=== PATIENT | male | born 1950 | race Caucasian/White ===

== ENCOUNTER 2023-11-01 23:46 | Inpatient (IN) | payer MEDICARE, OTHER, SELFPAY ==
[2023-11-01 21:37] VITALS: BP 106/72
[2023-11-01 21:38] VITALS: BP 106/72; BMI 23.9
--- NOTE | 2023-11-01 21:50 | ED.GENMED ---
History of Present Illness
General
Chief Complaint: Change in Mental Status
Source: usp
Exam Limitations: none
Time Seen by Provider: 11/01/23 21:36
History of Present Illness
History of Present Illness:
This is a 73 year old male that is brought in by ambulance with c/o change in mental status. Patient states that they went him in as they were afraid of him. Spoke with the nurse Yolis and she states that the patient had a change in mental
status. States that he was sitting on the floor and they would not let anyone tough him. States that he would not get up. States that he was recently treated for a UTI. Deneis any fever, chills, chest pain, SOB, abd pain, nausea, vomiting, diarrhea,
headache, dizziness, urinary burning.
Past History
Past History
ED Past Medical History: CHF, NIDDM, Psychiatric (Depression, Anxiety) and Other (UTI, Cellulitis, Frequent falls, HeP C, PVD, Anemia, ischemic cardiomyopathy)
ED Past Surgical History: Cardiac (CABG, ) and Orthopedic (Amputation right toes)
Patient has exhibited threatening behavior?: No
Social History
Tobacco: Non-smoker
Alcohol: None
Living: usp
Review of Systems
Review of Systems
Other source history: usp
All Other Systems: ROS reviewed and negative except as documented in HPI and ROS
Constitutional: Reports no symptoms; Denies fever or chills
EENT: Reports no symptoms
Respiratory: Reports no symptoms; Denies cough or trouble breathing
Cardiac: Reports no symptoms; Denies chest pain
ABD/GI: Reports no symptoms; Denies abdominal pain, nausea, vomiting or diarrhea
: Reports no symptoms; Denies dysuria, frequency or urgency
Musculoskeletal: Reports no symptoms
Skin: Reports no symptoms
Neurological: Reports no symptoms; Denies dizzy or headache
Psychiatric: Reports no symptoms
Phy Exam
General Physical Exam
General Presentation: no apparent distress
General age: appears stated age
General Skin: warm and dry
General Habitus: elderly
General Mental: usual mental status
General Hydration: dry mucous membranes
ENT Exam
ENT Exam: TM's normal, pharynx normal and neck supple
Eye Exam
Eye Exam: EOMI
Cardiovascular Exam
Cardiovascular Exam: regular rate/rhythm, no edema and normal peripheral pulses
Pulmonary Exam
Pulmonary Exam: no respiratory distress, chest non tender, no rhonchi, no wheezing, no cough and other (Fine crackles left base)
Gastrointestinal Exam
Gastrointestinal Exam: normal bowel sounds, non tender, soft, no organomegaly, no pulsatile mass and non distended
Musculoskeletal Exam
Musculoskeletal Exam: full ROM and no edema
Skin Exam
Skin Exam: normal color, warm/dry, no rash, no petechia and other (Abrasion to the right collado)
Psychiatric Exam
Psychiatric Exam: normal mood/affect (Patient is cooperative and following commands)
Course
Orders/Labs/Results
Orders:
Orders
11/01/23 21:48
Urinalysis Reflex To Culture Urgent
Date Specimen was Collected: 11/02/23
Time Specimen was Collected: 00:05
0.9% Sodium Chloride 500 ml [Nss] 500 ml IV BOLUS
11/01/23 21:49
CT Head W/o Iv Contrast Urgent
Comment:
Reason For Exam: Change in mental status
CR Chest - 2 Views Urgent
Comment:
Reason For Exam: Rales left base, Change in mental status
11/01/23 22:37
COVID-19 Antigen Urgent
Source: Nasal Swab
Complete Blood Count/With Diff Urgent
Comprehensive Metabolic Panel Urgent
11/01/23 23:17
Cefepime HCl [Maxipime] 2,000 mg IV NOW STA
11/01/23 23:19
Vancomycin 1 Gram/200 ml [Vancocin] 1 gram in 200 ml IV NOW
11/01/23 23:30
Lactate Level [Lactic Acid] Stat
Influenza A+B Rapid Molecular Stat
EMELYN Source: Nasal Swab
Specimen Description:
0.9% Sodium Chloride 500 ml [Nss] 500 ml IV BOLUS
11/01/23 23:35
Admit/Transfer Patient As Directed
Co-Sign Provider:
Level of Care: Inpatient admission
Assign to:: Medical/Surgical
Physician / Group: Hospitalist
Diagnosis: AMS
Reason for Hospitalization: AMS
Expected length of stay greater than two midnights?: Yes
ELOS- Estimated Length of Stay in days: 4
I certify the patient meets the requirements for IP care: Yes
11/01/23 23:37
Code Status As Directed
Resuscitation Status: Do not resuscitate
Based on pt advanced directive or healthcare POA form: Yes
DNR Bracelet Application ONCE
11/01/23 23:45
Blood Culture Q30M
EMELYN Source: Blood/Venous
Specimen Description:
Legionella Urinary Antigen Routine
EMELYN Source: Urine
Specimen Description:
Strep pneumoniae Antigen Routine
EMELYN Source: Urine
Specimen Description:
11/02/23 00:15
Blood Culture Q30M
EMELYN Source: Blood/Venous
Specimen Description:
Abnormal Lab Results
11/01/23 11/01/23
22:37 22:42
RBC 4.03 L 10^6/uL
(4.70-6.10)
Hgb 11.7 L g/dL
(13.0-18.0)
Hct 34.7 L %
(39.0-52.0)
RDW 14.9 H %
(11.5-14.5)
Absolute Lymphs (auto) 1.1 L 10^3/uL
(1.2-3.4)
Absolute Monos (auto) 1.0 H 10^3/uL
(0.1-0.6)
Immature Gran % 0.6 H %
(0-0.5)
Lymphocytes % 16.0 L %
(20.5-51.1)
Monocytes % 13.6 H %
(1.7-9.3)
BUN 43 H mg/dl
(9-20)
Creatinine 2.8 H mg/dL
(0.7-1.3)
Glucose 168 H mg/dl
(70-99)
Alkaline Phosphatase 166 H U/L
(38-126)
POC Glucose 151 H mg/dl
(70-99)
11/01/23 22:37
11/01/23 22:37
H/H low. Dehydration. Acute renal failure, Glucose nonfasting. ALk phos elevation. COVID negative.
Urine positive for infection.
Vital Signs
Initial and Last Documented VS:
Initial Vital Signs
BP
106/72
11/01/23 21:37
Last Documented Vital Signs
Temp Pulse Resp BP Pulse Ox
97.4 F 93 24 121/55 94
11/01/23 21:38 11/01/23 23:30 11/01/23 23:30 11/01/23 23:01 11/01/23 23:30
MDM/Problems Addressed
Differential Diagnosis Includes:
UTI, Dehydration.
MDM/Problems Addressed:
This is a 73 year old male that comes in by ambulance with c/o change in mental status. Called and spoke with the [facility] and they stated that the patient would not get up off the floor and would not let them tough him. States that his daughter and
the doctor wanted patient sent to the ER.
Will check labs, Urine and given IV fluids.
Chronic conditions affecting care: Psychiatric illness
Acute Exacerbation and/or Progression of Chronic Illness:
NA
*Radiology
Radiology exam reviewed: preliminary read by ED provider (Chest- Pleural effusion VS Pneumonia Left lower lobe) and radiology read reviewed (CT head-No acute intracranial abnormalities. Small old infarct again seen in the high left centrum
semiovale. Findings again seen Compatible with diffuse cortical atrophy with nonspecific white mattr changes as described above. )
*EKG
Interpreted by ED Provider?: NA
Rate: EKG- N/A
*Critical Care Note
Total Time (30-74mins, 75-104mins- exclusive of procedures): Not Applicable
ED Attending Note
-
Portions of this chart may have been created with voice recognition software.� Occasional wrong word or��sound alike� substitutions may have occurred due to the inherent limitations of voice recognition software.
Discharge Plan
Departure
Patient Disposition: Admit
Date of Disposition: 11/01/23
Time of Disposition: 23:17
Admit to: Med/Surg
Presentation/result/management discussed w/ accepting MD/DO: Hospitalist
Patient with high blood pressure during this ER visit?: No
Condition: Good
Covid-19: Negative COVID-19
Discharge Problem:
Change in mental status, Left lower Pneumonia with pleural effusi
Interventions
Interventions:
*Risk Screen - Suicide Last Done: 11/01/23 21:38
*General Assessment Last Done: 11/01/23 21:38
*Neglect/Abuse Screening Last Done: 11/01/23 21:38
[2023-11-01 22:20] VITALS: BP 137/59
[2023-11-01 22:43] LABS: Glucose - Point of Care 151 mg/dl (70-99)
[2023-11-01 22:45] LABS: % Basophils 1.4 % (0-2); % Eosinophils 3.8 % (0-6); % Immature Granulocytes 0.6 % (0-0.5); % Monocytes 13.6 % (1.7-9.3); % Neutrophils 64.6 % (42.2-75.2); Absolute Basophils 0.1 10^3/uL (0-0.2); Absolute Eosinophils 0.3 10^3/uL (0-0.7); Absolute Lymphocytes 1.1 10^3/uL (1.2-3.4); Absolute Neutrophils 4.6 10^3/uL (1.4-6.5); Hematocrit 34.7 % (39.0-52.0); Hemoglobin 11.7 g/dL (13.0-18.0); Mean Corp Hgb Conc. 33.7 g/dL (33.0-37.0); Mean Corpuscular Volume 86.1 fL (80.0-94.0); Nucleated Red Blood Cells % 0 % (-); Platelet Count 281 10^3/uL (130-400); Red Blood Cell Count 4.03 10^6/uL (4.70-6.10); Red Cell Dist. Width 14.9 % (11.5-14.5); White Blood Cell Count 7.1 10^3/uL (4.8-10.8)
[2023-11-01] MEDS: NSS 500 IV (22:47)
[2023-11-01 22:58] LABS: ALT (SGPT) 28 U/L (0-50); AST (SGOT) 35 U/L (17-59); Albumin 4.3 g/dl (3.5-5.0); Alkaline Phosphatase 166 U/L (38-126); Blood Urea Nitrogen 43 mg/dl (9-20); Carbon Dioxide 23 mmol/L (22-30); Chloride 102 mmol/L (98-107); Estimated Creatinine Clearance 27 ml/min; Glucose 168 mg/dl (70-99); Potassium 4.3 mmol/L (3.5-5.1); Sodium 136 mmol/L (135-145); Total Bilirubin 0.7 mg/dl (0.2-1.3); Total Protein 7.9 g/dl (6.3-8.2)
[2023-11-01 23:00] LABS: COVID-19 Antigen Negative (Negative)
[2023-11-01 23:01] VITALS: BP 121/55
--- NOTE | 2023-11-01 23:54 | HPS.HSE ---
Family Physician
-
Family Physician: Eligio Glass MD
Chief Complaint
-
AMS
History of Present Illness
73 yo M with PMHx of DM, HFrEF, PAD, ischemic CM, chronic hepC, depression, chronic ambulatory deficiency, anxiety bought from [facility] after few days of worsening mental status and poor oral intake. He was also treated there for UTI. In ED
admisssion was advised 2/2 concern for pneumonia, however no viral PCR or UA available at the time of admission. Patient is without leukocytosis. Unclear sourse of infection at this time.
Medical History
Past Medical History
Past Medical History: Reports Other
Additional Past Medical History:
see HPI
Past Surgical History: Reports None
Social History
Unable to obtain full social history at this time due to: Dementia
Family History
Family History: Not pertinent
Allergies / Home Medications
Allergies reflects when Allergies were last updated in [employer]
Home Medications with original date entered in [employer]
Allergy/Medication List:
Allergies
Allergy/AdvReac Type Severity Reaction Status Date / Time
clopidogrel Allergy Unknown Verified 11/01/23 21:55
lisinopril Allergy Unknown Verified 11/01/23 21:55
spironolactone Allergy Unknown Verified 11/01/23 21:55
Home Medications
aspirin 81 mg chewable tablet 81 mg PO DAILY 11/01/23
atorvastatin 80 mg tablet 80 mg PO HS 11/01/23
bisacodyl 10 mg rectal suppository (Dulcolax (bisacodyl)) 10 mg GA DAILY PRN if no bm in 24 hrs after MOM 11/01/23
bupropion HCl 150 mg 24 hr tablet, extended release 450 mg PO DAILY 11/01/23
collagenase clostridium histo. 250 unit/gram topical ointment (Santyl) 1 applic topical DAILY 11/01/23
collagenase clostridium histo. 250 unit/gram topical ointment (Santyl) 1 applic topical DAILY PRN soilage 11/01/23
enoxaparin 40 mg/0.4 mL subcutaneous syringe 40 mg SC DAILY 11/01/23
insulin aspart U-100 100 unit/mL (3 mL) subcutaneous pen 2 - 10 sliding scale dose SC ACHS 11/01/23
insulin glargine-yfgn 100 unit/mL (3 mL) subcutaneous pen 7 unit SC HS 11/01/23
magnesium hydroxide 400 mg/5 mL oral suspension (Milk of Magnesia) 30 ml PO DAILY PRN if no bm x 3 days 11/01/23
magnesium oxide 800 mg PO DAILY 11/01/23
melatonin 3 mg tablet 6 mg PO HS 11/01/23
menthol 0.44 %-zinc oxide 20.6 % topical ointment (Moisture Barrier Ointment) 1 applic topical BID 11/01/23
metoprolol tartrate 25 mg tablet 25 mg PO Q6H 11/01/23
olanzapine 5 mg tablet (Zyprexa) 5 mg PO HS 11/01/23
paroxetine HCl 30 mg tablet 60 mg PO DAILY 11/01/23
povidone-iodine 10 % topical solution (Betadine) 1 applic topical DAILY 11/01/23
povidone-iodine 10 % topical solution (Betadine) 1 applic topical DAILY PRN soilage 11/01/23
sacubitril 24 mg-valsartan 26 mg tablet (Entresto) 1 tab PO BID 11/01/23
sodium phosphates 19 gram-7 gram/118 mL enema (Fleet Enema) 118 ml GA DAILY PRN if no bm in 24hrs after bisacodyl 11/01/23
tamsulosin 0.4 mg capsule 0.4 mg PO QPM 11/01/23
Review of Systems
-
Unable to obtain full review of systems at this time due to: Dementia
Physical Exam
Vital Signs
Vital Signs
Temp Pulse Resp BP Pulse Ox
97.4 F 93 24 121/55 94
11/01/23 21:38 11/01/23 23:30 11/01/23 23:30 11/01/23 23:01 11/01/23 23:30
Physical Exam
General: No Apparent Distress
HEENT: Anicteric
Respiratory: Clear; No Wheezes, Rales or Rhonchi
Cardiac: S1/S2 and Regular Rhythm
GI: Soft, Non Tender and Non Distended
Musculoskeletal: No Clubbing, No Cyanosis and No Edema
Skin: Warm and Dry
Neuro: Awake and Alert
Hematologic/Lymphatic: No Lymphadenopathy
Psych: Apparent Dementia
Laboratory Results
-
11/01/23 22:37
11/01/23 22:37
Laboratory Results
Total Bilirubin 0.7 mg/dl (0.2-1.3) 11/01/23 22:37
AST 35 U/L (17-59) 11/01/23 22:37
ALT 28 U/L (0-50) 11/01/23 22:37
Alkaline Phosphatase 166 U/L (38-126) H 11/01/23 22:37
Impression/Plan
-
A/P:
#Sepsis with unclear sourse, possible HCAP with unknown organism
Cefepime\\Vanoc
Bcx
S/pneumonia and legionella urine Ag
Checjk COVID-19 and influenza
follow AM Procalcitonin
UA ordered - follow
check lactic acid
#Acute metabolic encephalopathy
most likely septic r/o other etiologies
CT head with old stroke
check TSH and Ammonia level
#Alk.phos elevation
abd non-tender
US RUQ
#Chronic hepC
#x of CVA
#chronic ambulatory dysfunction
#Anxiety/depression syndrome
#chronic HFrEF
#Ischemic CM
cont home meds
avoid oversedation, holding Zyprexa
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
#DM type 2
insulin low dose
DNR/DNI as per SNF paperwork
DVT ppx hep
I have spent at least 78min preparing admission, reviewing chart, test results, providing direct patient care
[2023-11-02] VITALS (8 sets, daily range): BP systolic 110–171; BP diastolic 60–99; BMI 24.4
[2023-11-02] MEDS: MAXIPIME 2000 MG IV (00:10)
[2023-11-02] MEDS: ATIVAN 1 MG IV ×3 (00:13→19:20)
[2023-11-02 00:17] LABS: Urine Albumin 1+ (Neg - Trace); Urine Bilirubin Negative (Negative); Urine Character Very Cloudy (Clear); Urine Color Yellow; Urine Glucose Negative (Negative); Urine Ketone Negative (Negative); Urine Leukocyte 2+ (Negative); Urine Nitrite Negative (Negative); Urine Occult Blood 3+ (Negative); Urine Urobilinogen Negative (Neg - 1+)
[2023-11-02 00:24] LABS: Urine Red Blood Cell 0-2 /HPF (0-2); Urine White Cell 21-25 /HPF (0-5)
[2023-11-02 00:25] LABS: Urine Bacteria Moderate (Negative)
[2023-11-02] MEDS: VANCOCIN 200 IV (00:26)
[2023-11-02 01:12] LABS: Ammonia < 9 umol/L (9-30)
[2023-11-02 01:13] LABS: Lactic Acid 1.8 mmol/L (0.7-2.0)
[2023-11-02 01:50] LABS: TSH 0.55 uIU/ml (0.47-4.68)
[2023-11-02] MEDS: NSS 1000 IV ×2 (02:10→12:27)
[2023-11-02] MEDS: VANCOCIN HCL 500 MG 100 IV ×2 (02:11→15:39)
[2023-11-02] MEDS: HEPARIN 5000 UNITS SC ×2 (02:25→11:33)
[2023-11-02] MEDS: ZYPREXA 5 MG IM ×2 (03:32→08:23)
--- NOTE | 2023-11-02 07:00 | PTCARENOTE ---
@0245; Received pt from ED ,via stretcher,IV fluid infusing,and accompanied by ED RN and ED PCT.Pt on nursing 1:1 for pt safety.Pt is restless while lying on the stretcher . Pt lifted into the bed x4 assist.Pt became angry,agitated,combative towards
staff (swinging arms/fists and kicking legs), forgetful and unable to follow verbal redirection. JIMMIE Caballero notified ,via TT and new restraints orders written.Pt aggressively kicking with legs and swinging hands at staff while attempting to
apply restraints. Attempted to change patient,when pt starting to lift buttock off the bed and hitting staff with mitts.JIMMIE notified via TT .Zyprexia 5mg IM ordered and administered.Pt appears to take 3-4 minute cat naps and wake back up with same
behavior.@0400;Pt is slightly calmer while resting in bed awake.Pt has a foam dressing on left inner thigh but pt was too agitated to assess wound care at the present.@0640;Pt became agitated again,lifting buttock off the mattress,shaking the bed
and pulling on restraints.JN=053/71, HR 106 and POX room air=94%. @0649;Instructed JIMMIE Caballero on above note ,via TT.
[2023-11-02 08:28] LABS: Glucose - Point of Care 111 mg/dl (70-99)
--- NOTE | 2023-11-02 08:46 | PHA.VAN.IN ---
Assessment
- Assessment
Renal Function: Unknown baseline (SCR decreased from admission 2.8 --> 2.2)
Concomitant Antimicrobials: cefepime
Plan
- Plan
Initial / Loading Dose: 1500mg - 11/02 (1g at 00:26 PLUS 500mg at 02:11)
Maintenance Regimen: dosing by level - will give additional 500mg x1 today for total 2g
Monitoring: random 11/03 06
Pharmacokinetics Vancomycin I
- -
Patient Age: 73
Patient Sex: Male
Vancomycin Day #: 1
Indication: Pulmonary/Respiratory
Requesting Provider: Dr. Yu
Pertinent Antimicrobial Allergies:
no pertinent antibiotic allergies
Height / Weight:
Height 6 ft 2 in
Actual Weight 86.137 kg
Pertinent Past Medical History: DM 2
- Vital Signs / Lab Results
Temp Pulse Resp BP Pulse Ox
97.6 F 106 24 123/71 94
11/02/23 06:55 11/02/23 06:55 11/02/23 06:55 11/02/23 06:55 11/02/23 06:55
Lab Results - Hematology
11/01/23
22:37
WBC 7.1
Lab Results - Chemistry
11/01/23
22:37
BUN 43 H
Creatinine 2.8 H
Estimated Creat Clear 27
Albumin 4.3
11/02/23
00:32
Lactic Acid 1.8
Lab Results - Urine
11/01/23 11/02/23
23:30 00:06
Urine Nitrite (Reflex) Cancelled Negative
Leukocyte Esterase Rfl Cancelled 2+ A
Urine WBC (Reflex) 21-25 A
Urine Bacteria (Reflex) Moderate A
Microbiology Results
11/02/23 00:06 Legionella Urinary Antigen - Final
Urine Negative for Legionella pneumophila Serogroup 1 antigen.
A negative result does not rule out the possiblity of
Legionella infection due to other serogroups or species of
Legionella. Clinical correlation is recommended.
Streptococcus pneumoniae Antigen (M - Final
Negative for Streptococcus pneumoniae antigen.
A negative result does not exclude infection with
Streptococcus pneumoniae. Clinical correlation is
recommended.
11/02/23 00:09 Influenza Types A & B (ESPERANZA) - Final
Nasal Swab Negative for Influenza A & B, NAAT
Negative results must be combined with clinical observations
and patient history.
Nucleic Acid Amplification test (NAAT)performed on the
[employer] platform.
[2023-11-02 09:47] LABS: % Basophils 1.3 % (0-2); % Eosinophils 5.1 % (0-6); % Immature Granulocytes 0.3 % (0-0.5); % Lymphocytes 12.5 % (20.5-51.1); % Monocytes 10.7 % (1.7-9.3); % Neutrophils 70.1 % (42.2-75.2); Absolute Basophils 0.1 10^3/uL (0-0.2); Absolute Eosinophils 0.3 10^3/uL (0-0.7); Absolute Lymphocytes 0.8 10^3/uL (1.2-3.4); Absolute Monocytes 0.7 10^3/uL (0.1-0.6); Absolute Neutrophils 4.4 10^3/uL (1.4-6.5); Hematocrit 29.5 % (39.0-52.0); Hemoglobin 9.9 g/dL (13.0-18.0); Mean Corp Hgb Conc. 33.6 g/dL (33.0-37.0); Mean Corpuscular Hgb 28.7 pg (27.0-31.0); Mean Corpuscular Volume 85.5 fL (80.0-94.0); Mean Platelet Volume 10.4 fL (7.4-10.4); Nucleated Red Blood Cells % 0 % (-); Platelet Count 234 10^3/uL (130-400); Red Blood Cell Count 3.45 10^6/uL (4.70-6.10); Red Cell Dist. Width 15.1 % (11.5-14.5); White Blood Cell Count 6.2 10^3/uL (4.8-10.8)
--- NOTE | 2023-11-02 09:55 | PTOTSP ---
Speech Language Pathology
Pt seen for clinical bedside swallow evaluation. Attempted ice to lips with immediate agitation noted. Trialed drop of water via pipetted straw into oral cavity. Initially no response with bolus manipulation and swallow following 10 second delay.
Further P.O. trials deferred.
Recommend:
(1) NPO
(2) Oral care 4x/day with suctioning as needed
(3) Not appropriate for Aspiration Risk Hydration Protocol (ARHP) given agitation and oral defensiveness
(4) SHEET TAKER to continue to follow
[2023-11-02 10:17] LABS: ALT (SGPT) 22 U/L (0-50); AST (SGOT) 30 U/L (17-59); Alkaline Phosphatase 127 U/L (38-126); Blood Urea Nitrogen 38 mg/dl (9-20); Calcium 9.3 mg/dl (8.4-10.2); Carbon Dioxide 22 mmol/L (22-30); Chloride 106 mmol/L (98-107); Estimated Creatinine Clearance 35 ml/min; Glucose 110 mg/dl (70-99); Magnesium 2.1 mg/dl (1.6-2.3); Potassium 3.5 mmol/L (3.5-5.1); Procalcitonin < 0.05 ng/ml (0.0-0.25); Sodium 138 mmol/L (135-145); Total Bilirubin 0.6 mg/dl (0.2-1.3); Total Protein 6.1 g/dl (6.3-8.2); eGFR 30.85
--- NOTE | 2023-11-02 11:28 | CM ---
[facility] was ambulatory with walker prior to this admission to hospital. Patient was at the facility as a Short term rehabilitation patient but per admissions final decision has not been made at this
time regarding LTC status. Patient is not on a bed hold but per Admissions they will hold his bed and will work on the authorization when patient is ready to return. Patient daughter is very involved and supportive. Patient currently on 4 point
restraints. [facility] CM will reach out to patient sister to confirm plan for discharge. CM will continue to follow for discharge planning needs.
Plan; return to SNF: will need auth but facility admissions will work to complete
[2023-11-02] MEDS: ENTRESTO 24 MG/26 MG PO (11:36)
[2023-11-02 12:18] LABS: Glucose - Point of Care 100 mg/dl (70-99)
[2023-11-02] MEDS: STERILE WATER FOR INJECTION 10 ML IV (12:31)
[2023-11-02] MEDS: MAXIPIME 1000 MG IV (12:31)
[2023-11-02 13:24] LABS: Glycohemoglobin (HgbA1c) 7.7 % (4.0-5.6)
--- NOTE | 2023-11-02 13:50 | W.PN.HOSP.TC ---
Today's Communication/Plan
-
change cefepime to zosyn
consult psych/neuro
follow cultures
restraints for safety
Assessment / Plan
Assessment / Plan
pt is a 73 year old male
Acute metabolic encephalopathy vs delirium (more likely) possibly from UTI or pna (not hypoxic), WBC WNL--CT head with old stroke--ammonia < 9, TSH WNL
Sepsis with unclear source, possible HCAP with unknown organism vs UTI--cefepime can cause MS changes--stop and change to zosyn (renal dose)--cont vanco--follow cultures--Covid/flu/legionella/Strep pneumonia all negative--lactic acid WNL
Alk.phos elevation--not clinically significant
Chronic hep C
Hx of CVA
chronic ambulatory dysfunction
Anxiety/depression
chronic HFrEF/Ischemic CMP--cannot tolerate oral meds at this time--IV as able--NPO
DM type 2--insulin low dose
DNR/DNI as per SNF paperwork
DVT ppx hep
Anticipated Discharge: > 48 hours
Subjective/Interval History
-
Date of Service: November 02, 2023
pt nonverbal, not following commands
Objective Data
-
Labs:
Laboratory Results
11/02/23
09:37
WBC 6.2
Hgb 9.9 L
Hct 29.5 L
Plt Count 234
Sodium 138
Potassium 3.5
Chloride 106
Carbon Dioxide 22
BUN 38 H
Creatinine 2.2 H
Glucose 110 H
Calcium 9.3
Total Bilirubin 0.6
AST 30
ALT 22
Alkaline Phosphatase 127 H
Vital Signs:
max temp for 24 hours
11/02/23
06:55
Temp 97.6 F
Vital Signs
Temp Pulse Resp BP Pulse Ox
97.6 F 106 24 123/71 94
11/02/23 06:55 11/02/23 06:55 11/02/23 06:55 11/02/23 06:55 11/02/23 06:55
I&O
11/01/23 11/02/23 11/03/23
06:59 06:59 06:59
Intake Total 375 / 375
Balance 375 / 375
Review of Systems
-
Unable to obtain full review of systems at this time due to: Acuity
Physical Exam
-
General: Appears Chronically Ill and Other (in 4 point restraints)
HEENT: Normocephalic and Atraumatic; Negative Oxygen
Respiratory: Clear to Auscultation; Negative Wheezes or Rhonchi
Cardiac: Regular Rhythm, S1/S2 and Tachycardic
GI: Soft, Nontender, Nondistended and Normal Bowel Sounds
Genito-urinary: Other (condom cath on)
Musculoskeletal: No Clubbing, No Cyanosis and No Edema
Neuro: Awake and Other (not following commands, not verbal); Negative Alert or AO x 3
Psych: Agitated
--- NOTE | 2023-11-02 14:50 | CON.MD ---
Consultation - Medical
-
patient seen chart reviewed. i could obtain no information from patient who had been given im zyprexa and was not responsive. the patient is admitted for change in mental status. [facility] and was sitting on the floor in his room
[facility]. recently rx for uti w cefipine now changes to zosin bc ? as to whether it was causing the ms changes. the patient noted to have poor appetite in recent days as well. he has hx of depression and was on the top dose of wellbutrin 450 mg
daily and paxil 60 mg. he was also at some point taking zyprexa 5 mg. spoke to patient's d. before colman he was mobile. did not walk well but could ambulate. before as had gi and respiratory sx. he was living at his home in [facility]. he was
seen in hospital and rx for cellulitis/uti/diarrhea /coughing. he was dc to [facility] and continued on iv antibiotics (i asked d what antibiotics he was taking for weeks but she was not sure what or why). while at [facility] 'his mind
started getting affected...he was getting confused ...and there were problems w the nurses'. he came to for one day and was released and he was sent back to [facility]. he continued w behavioral disturbance 'he was almost like having sz...'
(reminded d he takes wellbutrin which he has taken for 'at least a decade') d says she wanted him to go to [facility] as they are famililar with his hx. while he was at [facility] he required one to one rx as he was hallucinating / confused kept
trying to get o/o bed but he cannot walk. she said [facility] docs did 'all kinds of tests and cultures' but in the end could not figure out what was going on. d said she was told he was sundowning. he was at the [facility] for about a week and a half and was
returned to [facility] about a week ago and now the saga is repeating itself. he has received im zyperxa here for agitaton
past med hx niddm chf uti cellulitis hep c in the past pud anemia cad ambulatory dysfunction s/p cabg and amputation of toes cat brain shows old infarct tsh normal. ua c/w infections cultures pending
psych hx patient was in psych hospitals in the past. 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
psych facility. he has been seen at [facility] d reports he needed haldol for agitation while there
substance abuse alcohol and cocaine thirty years ago
family hx d does not know
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 he is
mse unable to elicit information from patient
dx delirium superimposed on medical illness
plan for now would cut back wellbutrin to 300 and paxil to 40 mg although po meds are on hold for now. .unclear what is causing deteriorating mental status as d insists patient was normal mental status as late as xmas. would use ativan iv for
agitation for now. consider iv depakote for agitation if he becomes aggressive again. will follow
[2023-11-02] MEDS: ZOSYN 50 IV ×2 (15:09→22:12)
[2023-11-02] MEDS: HEPARIN SC ×2 (15:13→15:16)
--- NOTE | 2023-11-02 15:56 | CON.NEURO ---
Consultation
Order
CC: none
HPI: This is a 73-year-old man who presented to [facility] on 11/01/2023 with poor oral intake and worsening of encephalopathy. According to EMR patient was treated for UTI and 'he was almost like having a seizure '.
ER VS: 106/72, 91, afebrile
Labs: Glucose�168 normal WBCs, platelets, urinalysis�positive for blood, bacteria, leukocyte esterase, WBCs
CT head-atrophy, chronic L MCA territory subcortical infarct.
PDMP: No Rx medications
PMH: HTN, DLP, DM, HFrEF, PAD, CM, chronic hepC, MDD, KAJAL, PTSD, BPH, ambulatory dysfunction, history of polysubstance addiction in remission
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
FH: Unknown
All: Lisinopril, spironolactone, Plavix
ROS: Unable due to encephalopathy
General: Restrained, in no acute distress
Cardio: Regular rate and rhythm. Extremities are without cyanosis or edema.
Neuro:
Mental Status: Alert, attends to examiner, follows simple requests intermittently (closes eyes, sticks tongue out). Nonsensical speech. No hemineglect
Cranial Nerves: Pupils are equally round and reactive to light. Horizontal EOMs full. BTT BL No ptosis. No nystagmus. Face symmetric. Normal hearing AU. Tongue midline. Severe dysarthria including edentulous
Motor: Moves all limbs within bed plane symmetrically
Reflexes: Limited exam due to restraint
Sensory: Unable to assess due to encephalopathy
Coordination: No tremors or myoclonic movements
Gait: deferred
Assessment and Plan:
I. Multifactorial encephalopathy (toxic, infectious)
II. Chronic L MCA territory infarct
III.UTI
-Aspiration and seizure precautions.
-EKG
-Avoid medications known to lower seizure threshold (cefepime, bupropion)
-Avoid cerebral hypoperfusion, WIRELESS SALES MANAGER suppressants and anticholinergic medications.
-please check TSH, free T4, vit B12, CK
-Thiamine 100 mg QD IV
-Routine EEG
-Brain MRI wo kajal if no clinical improvement
-Will obtain collateral history from patient's family regarding cognitive baseline.
-DVT prophylaxis.
I reviewed all radiology and labs along with past medical records pertinent to current medical problems.
Thank you for allowing us to participate in the care of this patient. We will continue to follow. Please do not hesitate to contact us with any questions or concerns.
Subjective/Objective
Subjective Data
Date of Service: November 02, 2023
Objective Data
Vital Signs
Temp Pulse Resp BP Pulse Ox
37.0 C 109 24 149/82 94
11/02/23 15:10 11/02/23 15:10 11/02/23 15:10 11/02/23 15:10 11/02/23 15:10
Lab Results
11/02/23 09:37
11/02/23 09:37
Sodium 138 mmol/L (135-145) 11/02/23 09:37
Potassium 3.5 mmol/L (3.5-5.1) 11/02/23 09:37
BUN 38 mg/dl (9-20) H 11/02/23 09:37
Glucose 110 mg/dl (70-99) H 11/02/23 09:37
Calcium 9.3 mg/dl (8.4-10.2) 11/02/23 09:37
Patient Allergies
clopidogrel Allergy (Verified 11/01/23 21:55)
Unknown
lisinopril Allergy (Verified 11/01/23 21:55)
Unknown
spironolactone Allergy (Verified 11/01/23 21:55)
Unknown
Medications
-
Active Medications
Generic Name Dose Route Start Last Admin
Trade Name Becca PRN Reason Stop Dose Admin
Acetaminophen 650 mg 11/02/23 00:38
Acetaminophen 325 Mg Tablet PO 11/30/23 00:37
Q4HPRN PRN
mild pain/LARA/temp> 100.4F
Acetaminophen 650 mg 11/02/23 14:16
Acetaminophen 650 Mg Rectal Suppository RECTAL 11/30/23 14:15
Q6HPRN PRN
pain/fever
Aspirin 81 mg 11/02/23 08:00 11/02/23 11:36
Aspirin 81 Mg Chewable Tablet PO 11/30/23 07:59 Not Given
DAILY ILDEFONSO
Atorvastatin Calcium 80 mg 11/02/23 22:00
Atorvastatin (Lipitor) 80 Mg Tablet PO 11/30/23 21:59
HS ILDEFONSO
Bupropion HCl 300 mg 11/03/23 08:00
Bupropion (24hr) Extended Release 300 Mg Tablet PO 12/01/23 07:59
DAILY ILDEFONSO
Collagenase 1 applic 11/02/23 00:38
Collagenase Ointment 2.5 Gram Jar TOPICAL 11/30/23 00:37
DAILY PRN
soilage
Dextrose 12.5 grams 11/02/23 00:38
Dextrose 50% (0.5 Grams/Ml) 50 Ml Syringe IV 11/30/23 00:37
[id number] PRN
hypoglycemia
Protocol
Glucagon 1 mg 11/02/23 00:38
Glucagon 1 Mg Vial IM 11/30/23 00:37
PRN PRN
hypoglycemia
Protocol
Heparin Sodium 5,000 units 11/02/23 00:38 11/02/23 15:16
Heparin 5,000 Units/Ml 1 Ml Vial SC 11/30/23 00:37 Not Given
Q8 ILDEFONSO
Vancomycin HCl 1 each/ Device 0 mls @ 0 mls/hr 11/02/23 00:38
IV
PER PROTOCOL ILDEFONSO
Protocol
As Directed
Sodium Chloride 1,000 mls @ 75 mls/hr 11/02/23 00:38 11/02/23 12:27
Nss IV 1,000 mls
.[id number] ILDEFONSO Administration
Piperacillin Sod/Tazobactam Sod 2.25 grams in 50 mls @ 100 mls/hr 11/02/23 14:00 11/02/23 15:09
Zosyn IV 50 mls
Q6H ILDEFONSO Administration
Insulin Aspart 0 units 11/02/23 07:30 11/02/23 12:24
Insulin Aspart Low Resistance 300 Units/3 Ml Pen.Injctr SC 11/30/23 07:29 Not Given
AC ILDEFONSO
Protocol
Lorazepam 1 mg 11/02/23 15:22
Lorazepam 2 Mg/Ml Vial IV 11/30/23 15:21
Q6HPRN PRN
agitation
Magnesium Hydroxide 15 ml 11/02/23 00:38
Milk Of Magnesia 30 Ml Cup PO 11/30/23 00:37
HSPRN PRN
constipation
Metoprolol Tartrate 25 mg 11/02/23 00:38 11/02/23 12:29
Metoprolol 25 Mg Regular Release Tablet PO 11/30/23 00:37 Not Given
Q6H ILDEFONSO
Metoprolol Tartrate 5 mg 11/02/23 18:00
Metoprolol 5 Mg/5 Ml Vial IV 11/30/23 17:59
Q6 ILDEFONSO
Olanzapine 5 mg 11/02/23 22:00
Olanzapine 5 Mg Tablet PO 11/30/23 21:59
HS ILDEFONSO
Paroxetine HCl 40 mg 11/03/23 08:00
Paroxetine 20 Mg Tablet PO 12/01/23 07:59
DAILY ILDEFONSO
Sacubitril/Valsartan 1 tab 11/02/23 08:00 11/02/23 11:36
Sacubitril 24 Mg/Valsartan 26 Mg (Entresto) Tab PO 11/30/23 07:59 Not Given
BID ILDEFONSO
Sodium Chloride 0 flush 11/02/23 02:00
Sodium Chloride 0.9% (Flush) Syringe IV 11/30/23 01:59
PER PROTOCOL ILDEFONSO
Sodium Chloride 0.5 ml 11/02/23 15:23
Nss (Pf) 10 Ml Vial For Ativan 1 Mg Dose IV 11/30/23 15:22
Q6HPRN PRN
IV LORAZEPAM DILUTION
Tamsulosin HCl 0.4 mg 11/02/23 18:00
Tamsulosin 0.4 Mg Capsule PO 11/30/23 17:59
QPM ILDEFONSO
Home Medications
Medication Instructions Recorded
aspirin 81 mg chewable tablet 81 mg PO DAILY Blood Clot 11/01/23
Prevention/Tx
atorvastatin 80 mg tablet 80 mg PO HS High Cholesterol 11/01/23
bisacodyl 10 mg rectal suppository 10 mg [place] DAILY PRN if no bm in 24 11/01/23
(Dulcolax (bisacodyl)) hrs after MOM
bupropion HCl 150 mg 24 hr tablet, 450 mg PO DAILY Depression 11/01/23
extended release
collagenase clostridium histo. 250 1 applic topical DAILY PRN soilage 11/01/23
unit/gram topical ointment (Santyl)
collagenase clostridium histo. 250 1 applic topical DAILY Skin Issues 11/01/23
unit/gram topical ointment (Santyl)
enoxaparin 40 mg/0.4 mL 40 mg SC DAILY Blood Clot 11/01/23
subcutaneous syringe Prevention
insulin aspart U-100 100 unit/mL 2 - 10 sliding scale dose SC ACHS 11/01/23
(3 mL) subcutaneous pen Diabetes
insulin glargine-yfgn 100 unit/mL 7 unit SC HS Diabetes 11/01/23
(3 mL) subcutaneous pen
magnesium hydroxide 400 mg/5 mL 30 ml PO DAILY PRN if no bm x 3 11/01/23
oral suspension (Milk of Magnesia) days
magnesium oxide 800 mg PO DAILY Electrolyte 11/01/23
Repletion
melatonin 3 mg tablet 6 mg PO HS Sleep 11/01/23
menthol 0.44 %-zinc oxide 20.6 % 1 applic topical BID Skin Issues 11/01/23
topical ointment (Moisture Barrier
Ointment)
metoprolol tartrate 25 mg tablet 25 mg PO Q6H Blood Pressure 11/01/23
olanzapine 5 mg tablet (Zyprexa) 5 mg PO HS mental health 11/01/23
paroxetine HCl 30 mg tablet 60 mg PO DAILY Depression 11/01/23
povidone-iodine 10 % topical 1 applic topical DAILY PRN soilage 11/01/23
solution (Betadine)
povidone-iodine 10 % topical 1 applic topical DAILY Skin Issues 11/01/23
solution (Betadine)
sacubitril 24 mg-valsartan 26 mg 1 tab PO BID Heart Failure 11/01/23
tablet (Entresto)
sodium phosphates 19 gram-7 118 ml [place] DAILY PRN if no bm in 11/01/23
gram/118 mL enema (Fleet Enema) 24hrs after bisacodyl
tamsulosin 0.4 mg capsule 0.4 mg PO QPM Urinary Issue 11/01/23
Vital Signs and Labs
-
Vital Signs and Labs:
Vital Signs
Temp Pulse Resp BP Pulse Ox
37.0 C 109 24 149/82 94
11/02/23 15:10 11/02/23 15:10 11/02/23 15:10 11/02/23 15:10 11/02/23 15:10
Lab Results
11/02/23 09:37
11/02/23 09:37
Sodium 138 mmol/L (135-145) 11/02/23 09:37
Potassium 3.5 mmol/L (3.5-5.1) 11/02/23 09:37
BUN 38 mg/dl (9-20) H 11/02/23 09:37
Glucose 110 mg/dl (70-99) H 11/02/23 09:37
Calcium 9.3 mg/dl (8.4-10.2) 11/02/23 09:37
Home Medications
-
Home Medications
aspirin 81 mg chewable tablet 81 mg PO DAILY Blood Clot Prevention/Tx 11/01/23
atorvastatin 80 mg tablet 80 mg PO HS High Cholesterol 11/01/23
bisacodyl 10 mg rectal suppository (Dulcolax (bisacodyl)) 10 mg [place] DAILY PRN if no bm in 24 hrs after MOM 11/01/23
bupropion HCl 150 mg 24 hr tablet, extended release 450 mg PO DAILY Depression 11/01/23
collagenase clostridium histo. 250 unit/gram topical ointment (Santyl) 1 applic topical DAILY PRN soilage 11/01/23
collagenase clostridium histo. 250 unit/gram topical ointment (Santyl) 1 applic topical DAILY Skin Issues 11/01/23
enoxaparin 40 mg/0.4 mL subcutaneous syringe 40 mg SC DAILY Blood Clot Prevention 11/01/23
insulin aspart U-100 100 unit/mL (3 mL) subcutaneous pen 2 - 10 sliding scale dose SC ACHS Diabetes 11/01/23
insulin glargine-yfgn 100 unit/mL (3 mL) subcutaneous pen 7 unit SC HS Diabetes 11/01/23
magnesium hydroxide 400 mg/5 mL oral suspension (Milk of Magnesia) 30 ml PO DAILY PRN if no bm x 3 days 11/01/23
magnesium oxide 800 mg PO DAILY Electrolyte Repletion 11/01/23
melatonin 3 mg tablet 6 mg PO HS Sleep 11/01/23
menthol 0.44 %-zinc oxide 20.6 % topical ointment (Moisture Barrier Ointment) 1 applic topical BID Skin Issues 11/01/23
metoprolol tartrate 25 mg tablet 25 mg PO Q6H Blood Pressure 11/01/23
olanzapine 5 mg tablet (Zyprexa) 5 mg PO HS mental health 11/01/23
paroxetine HCl 30 mg tablet 60 mg PO DAILY Depression 11/01/23
povidone-iodine 10 % topical solution (Betadine) 1 applic topical DAILY PRN soilage 11/01/23
povidone-iodine 10 % topical solution (Betadine) 1 applic topical DAILY Skin Issues 11/01/23
sacubitril 24 mg-valsartan 26 mg tablet (Entresto) 1 tab PO BID Heart Failure 11/01/23
sodium phosphates 19 gram-7 gram/118 mL enema (Fleet Enema) 118 ml [place] DAILY PRN if no bm in 24hrs after bisacodyl 11/01/23
tamsulosin 0.4 mg capsule 0.4 mg PO QPM Urinary Issue 11/01/23
Medications
-
Medications:
Generic Name Dose Route Start Last Admin
Trade Name Freq PRN Reason Stop Dose Admin
Acetaminophen 650 mg 11/02/23 00:38
Acetaminophen 325 Mg Tablet PO 11/30/23 00:37
Q4HPRN PRN
mild pain/LARA/temp> 100.4F
Acetaminophen 650 mg 11/02/23 14:16
Acetaminophen 650 Mg Rectal Suppository RECTAL 11/30/23 14:15
Q6HPRN PRN
pain/fever
Aspirin 81 mg 11/02/23 08:00 11/02/23 11:36
Aspirin 81 Mg Chewable Tablet PO 11/30/23 07:59 Not Given
DAILY ILDEFONSO
Atorvastatin Calcium 80 mg 11/02/23 22:00
Atorvastatin (Lipitor) 80 Mg Tablet PO 11/30/23 21:59
HS ILDEFONSO
Bupropion HCl 300 mg 11/03/23 08:00
Bupropion (24hr) Extended Release 300 Mg Tablet PO 12/01/23 07:59
DAILY ILDEFONSO
Collagenase 1 applic 11/02/23 00:38
Collagenase Ointment 2.5 Gram Jar TOPICAL 11/30/23 00:37
DAILY PRN
soilage
Dextrose 12.5 grams 11/02/23 00:38
Dextrose 50% (0.5 Grams/Ml) 50 Ml Syringe IV 11/30/23 00:37
[id number] PRN
hypoglycemia
Protocol
Glucagon 1 mg 11/02/23 00:38
Glucagon 1 Mg Vial IM 11/30/23 00:37
PRN PRN
hypoglycemia
Protocol
Heparin Sodium 5,000 units 11/02/23 00:38 11/02/23 15:16
Heparin 5,000 Units/Ml 1 Ml Vial SC 11/30/23 00:37 Not Given
Q8 ILDEFONSO
Vancomycin HCl 1 each/ Device 0 mls @ 0 mls/hr 11/02/23 00:38
IV
PER PROTOCOL ILDEFONSO
Protocol
As Directed
Sodium Chloride 1,000 mls @ 75 mls/hr 11/02/23 00:38 11/02/23 12:27
Nss IV 1,000 mls
.[id number] ILDEFONSO Administration
Piperacillin Sod/Tazobactam Sod 2.25 grams in 50 mls @ 100 mls/hr 11/02/23 14:00 11/02/23 15:09
Zosyn IV 50 mls
Q6H ILDEFONSO Administration
Insulin Aspart 0 units 11/02/23 07:30 11/02/23 12:24
Insulin Aspart Low Resistance 300 Units/3 Ml Pen.Injctr SC 11/30/23 07:29 Not Given
AC ILDEFONSO
Protocol
Lorazepam 1 mg 11/02/23 15:22
Lorazepam 2 Mg/Ml Vial IV 11/30/23 15:21
Q6HPRN PRN
agitation
Magnesium Hydroxide 15 ml 11/02/23 00:38
Milk Of Magnesia 30 Ml Cup PO 11/30/23 00:37
HSPRN PRN
constipation
Metoprolol Tartrate 25 mg 11/02/23 00:38 11/02/23 12:29
Metoprolol 25 Mg Regular Release Tablet PO 11/30/23 00:37 Not Given
Q6H ILDEFONSO
Metoprolol Tartrate 5 mg 11/02/23 18:00
Metoprolol 5 Mg/5 Ml Vial IV 11/30/23 17:59
Q6 ILDEFONSO
Olanzapine 5 mg 11/02/23 22:00
Olanzapine 5 Mg Tablet PO 11/30/23 21:59
HS ILDEFONSO
Paroxetine HCl 40 mg 11/03/23 08:00
Paroxetine 20 Mg Tablet PO 12/01/23 07:59
DAILY ILDEFONSO
Sacubitril/Valsartan 1 tab 11/02/23 08:00 11/02/23 11:36
Sacubitril 24 Mg/Valsartan 26 Mg (Entresto) Tab PO 11/30/23 07:59 Not Given
BID ILDEFONSO
Sodium Chloride 0 flush 11/02/23 02:00
Sodium Chloride 0.9% (Flush) Syringe IV 11/30/23 01:59
PER PROTOCOL ILDEFONSO
Sodium Chloride 0.5 ml 11/02/23 15:23
Nss (Pf) 10 Ml Vial For Ativan 1 Mg Dose IV 11/30/23 15:22
Q6HPRN PRN
IV LORAZEPAM DILUTION
Tamsulosin HCl 0.4 mg 11/02/23 18:00
Tamsulosin 0.4 Mg Capsule PO 11/30/23 17:59
QPM ILDEFONSO
[2023-11-02 16:56] LABS: Glucose - Point of Care 113 mg/dl (70-99)
[2023-11-02] MEDS: LOPRESSOR 5 MG IV (16:58)
[2023-11-02 17:07] LABS: Creatine Phosphokinase 331 U/L (55-170)
--- NOTE | 2023-11-02 17:14 | PTCARENOTE ---
This morning at 0915, Alyssa Grajeda [facility] was performing AM hygiene care when she found a tourniquet still in place on patients LUE. She removed it and called RN to bedside. Pt's brachial and radial pulse in LUE intact, capillary refill, color and
movement were also all within normal limits. MD Branch made aware. Incident report filled out. See incident report for more details.
[2023-11-02 17:30] LABS: TSH Reflex To Free T4 0.52 uIU/ml (0.47-4.68)
[2023-11-02 17:49] LABS: Vitamin B12 529 pg/ml (239-931)
[2023-11-02] MEDS: THIAMINE INJECTION 100 MG IV (18:09)
--- NOTE | 2023-11-02 18:23 | PTCARENOTE ---
Notified alonzo ragland MD about pt's HR 128, SBP 180, and increased agitation via phone call. Awaiting orders.
[2023-11-02] MEDS: NSS (PRESERVATIVE FREE) 0.5 ML IV (19:20)
[2023-11-02] MEDS: DEPACON 55 MG IV (20:47)
--- NOTE | 2023-11-02 21:00 | PTCARENOTE ---
Patient HR in 140s on monitor. Patient restless, thrashing around in bed. CONTENT MANAGEMENT SPECIALIST notified and up to see patient. Provider placed orders. See MAR.
--- NOTE | 2023-11-02 22:35 | W.PN.UPDATE ---
Update Note
Progress Note Update
RN notified SEWER at 1930 patient HR 130's, but is thrashing around in bed. patient was seen and evaluated. Noted Jerking, pulling violently on restraints and very restless. Responds to name and calms down with behavior when someone is closer to
patient and talking, then starts again. Patient had received the Ativan at 1920. Psych notes reviewed. IV guidelines reviewed, Ordered IV Depakote once
HR in 110's increases with behavior. regular rhythm, Metoprolol given at 1700 and next dose due 2300. will monitor.
At 0245 VS 102.2, 130' HR , 40 RR, 93%, Tylenol given by RN
Fever likely due to Sepsis, infection, pneumonia
Nursing noted Trigemini on the monitor, EKG done prolonged QTC noted likely due to Psych medications.
labs done, CO2 18 noted, will order Lactic acid
Lungs sounds rales/rhonchi, Tachypneic at rest. will do Chest Xray, proBNP, IV fluids on hold.
awaiting chest xray and further lab results. Recommend Consult with Package Line Operator if needed.
[2023-11-02 23:47] LABS: Glucose - Point of Care 158 mg/dl (70-99)
[2023-11-03] VITALS (28 sets, daily range): BP systolic 94–153; BP diastolic 50–98; BMI 24.4; BMI 23.0; BMI 22.6
[2023-11-03] MEDS: LOPRESSOR 5 MG IV ×5 (00:26→23:43)
[2023-11-03] MEDS: HEPARIN 5000 UNITS SC ×4 (00:37→23:43)
[2023-11-03] MEDS: TYLENOL/FEVERALL 650 MG RECTAL (02:53)
--- NOTE | 2023-11-03 03:00 | PTCARENOTE ---
Patient in Vent. Trigeminy on monitor. OPTICS TECHNICAL OFFICER notified. EKG obtained. OPTICS TECHNICAL OFFICER also notified of patient's fast breathing.
[2023-11-03 03:12] LABS: Hematocrit 35.1 % (39.0-52.0); Hemoglobin 11.5 g/dL (13.0-18.0); Mean Corp Hgb Conc. 32.8 g/dL (33.0-37.0); Mean Corpuscular Hgb 28.7 pg (27.0-31.0); Mean Corpuscular Volume 87.5 fL (80.0-94.0); Mean Platelet Volume 10.2 fL (7.4-10.4); Platelet Count 279 10^3/uL (130-400); Red Blood Cell Count 4.01 10^6/uL (4.70-6.10); White Blood Cell Count 10.1 10^3/uL (4.8-10.8)
[2023-11-03] MEDS: ZOSYN 50 IV ×4 (03:19→19:55)
[2023-11-03 03:27] LABS: Blood Urea Nitrogen 31 mg/dl (9-20); Calcium 9.7 mg/dl (8.4-10.2); Carbon Dioxide 18 mmol/L (22-30); Chloride 108 mmol/L (98-107); Estimated Creatinine Clearance 32 ml/min; Glucose 173 mg/dl (70-99); Magnesium 1.9 mg/dl (1.6-2.3); Potassium 4.2 mmol/L (3.5-5.1); Sodium 143 mmol/L (135-145); eGFR 27.79
[2023-11-03] MEDS: NSS 1000 IV ×2 (03:40→18:45)
[2023-11-03 05:56] LABS: Glucose - Point of Care 143 mg/dl (70-99)
[2023-11-03 06:35] LABS: Vancomycin Random 12.6 ug/ml
[2023-11-03 06:40] LABS: NT-proBNP 10100 pg/ml
[2023-11-03 08:18] LABS: B.E. -2.5 mmol/L; HCO3 21.4 mmol/L (21-28); O2 Saturation % 97.3 % (94-98); PCO2 33 mmHg (35-48); PO2 83 mmHg (83-108); pH 7.42 (7.35-7.45)
[2023-11-03] MEDS: THIAMINE INJECTION 100 MG IV (08:30)
--- NOTE | 2023-11-03 09:12 | CM ---
Patient seen at bedside with physician. Patient with changes in his status. Physician on phone with patient daughter, Plan currently to transition to ICU, per physician. CM will continue to follow for discharge planning needs.
Plan; return to SNF when medically appropriate.
--- NOTE | 2023-11-03 09:26 | W.PN.HOSP.TC ---
Today's Communication/Plan
-
transfer to ICU
consult informatica mdm architect
consult ID
change code status to FULL CODE
may need LP
Assessment / Plan
Assessment / Plan
pt is a 73 year old male
Acute metabolic encephalopathy vs delirium (more likely) possibly from UTI or pna (not hypoxic), WBC WNL--CT head with old stroke--ammonia < 9, TSH WNL--appreciate psychiatry and neurology--unclear whether we will be able to get the MRI as I do not
believe the patient will stay still--patient remains in 4-point restraints, will transfer to intensive care unit for closer monitoring
Sepsis with unclear source, possible HCAP with unknown organism vs UTI--cefepime can cause MS changes--stop and change to zosyn (renal dose)--cont vanco--follow cultures--Covid/flu/legionella/Strep pneumonia all negative--lactic acid WNL--consult
infectious disease, patient had history of infection in his left leg requiring interventional radiology aspiration although cultures apparently were negative per the patient's daughter
Alk phos elevation--not clinically significant
Chronic hep C
Hx of CVA
chronic ambulatory dysfunction
Anxiety/depression
chronic HFrEF/Ischemic CMP--cannot tolerate oral meds at this time--IV as able--NPO--proBNP is 10,100 likely iatrogenic induced from IV fluids as he is unable to take anything by mouth at this time--once transferred to ICU, consider stopping IV
fluids and placing small bore feeding tube and starting tube feeding for nutrition
DM type 2--insulin low dose
CODE STATUS--patient was placed as DNR/DNI as per his senior care paperwork, however I spoke with the patient's daughter this morning and she stated that as the patient has gotten older he has changed his mind and if something reversible is
possible he would like to be resuscitated--therefore I will change his CODE STATUS to FULL CODE at this time
His daughter stated that he has been normal, walking, talking as most recently as Miri--but this is a change for him--he has [facility] which the daughter paid to transport him there since they know him well--apparently
extensive workup at the [facility] was negative
DVT ppx hep
Total Critical Care Time 40 minutes. I was immediately available to the patient and staff. I personally examined, reviewed labs, diagnostic images/reports, interpretations, treatment plans, discussed patient care with other providers and family
or caregivers (if patient is unable to make decisions), entered orders as appropriate and documented the medical record.
Anticipated Discharge: > 48 hours
Subjective/Interval History
-
Date of Service: November 03, 2023
pt remains nonverbal, confused, Murali Wray breathing
Objective Data
-
Labs:
Laboratory Results
11/03/23 11/03/23
02:50 08:07
WBC 10.1
Hgb 11.5 L
Hct 35.1 L
Plt Count 279
HCO3 21.4
Sodium 143
Potassium 4.2
Chloride 108 H
Carbon Dioxide 18 L
BUN 31 H
Creatinine 2.4 H
Glucose 173 H
Calcium 9.7
Vital Signs:
max temp for 24 hours
11/03/23
02:33
Temp 102 F H
Vital Signs
Temp Pulse Resp BP Pulse Ox
98.5 F 109 22 102/67 97
11/03/23 07:00 11/03/23 07:00 11/03/23 07:00 11/03/23 07:00 11/03/23 07:00
I&O
11/02/23 11/03/23 11/04/23
06:59 06:59 06:59
Intake Total 750 / 750
Output Total 2049
Balance -1300 / -1300
Review of Systems
-
Unable to obtain full review of systems at this time due to: Acuity
Physical Exam
-
General: Appears Chronically Ill (nonverbal)
HEENT: Normocephalic and Atraumatic
Respiratory: Rhonchi and Crackles
Cardiac: Regular Rhythm, S1/S2 and Tachycardic
GI: Soft, Nontender, Nondistended and Normal Bowel Sounds
Musculoskeletal: No Clubbing, No Cyanosis and No Edema
Neuro: Negative Awake or Alert
Psych: Agitated
--- NOTE | 2023-11-03 09:51 | W.PN.NEURO.1 ---
Today's Communication / Plan
-
.
Subjective/Objective
Subjective Data
Date of Service: November 03, 2023
24 h events: febrile(38.8C), tachycardic, saturating well on room air.
Labs: gluc 173, normal Na, WBC< Cr 2.4, CK 331, normal TSH.
MAR: Ativan 1.5 mg IV at 19:20, 1mg at 17:32 on 11/02/2023.
Routine EEG(11/03/2023)-generalized slowing, no epileptiform abnormalties.
CT head(11/01/2023) atrophy, chronic L MCA territory subcortical infarct.
CXR(11/03/2023)-small left pleural effusion. Parenchymal opacity within the left lower lung, slightly improved, with main differential considerations of pneumonia and/or atelectasis.
PMH: HTN, DLP, DM, HFrEF, PAD, CM, chronic hep C, MDD, KAJAL, PTSD, BPH, ambulatory dysfunction, history of polysubstance addiction in remission
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
FH: Unknown
All: Lisinopril, spironolactone, Plavix
ROS: Unable due to encephalopathy
�
General: Restrained, in no acute distress
Cardio: Regular rate and rhythm. Extremities are without cyanosis or edema.
Neuro:
Mental Status: Stuporous, moans to sternal rub. Dos not follow requests. No verbal output.
Cranial Nerves: Pupils are equally round and reactive to light.� + corneals, oculocephalics.
Motor: � � � flaccid quadriplegia
Sensory:� � Unable to assess due to encephalopathy
Coordination: No tremors or myoclonic movements
Gait: � � � � � deferred
Assessment and Plan:
�
I. Multifactorial encephalopathy (toxic, infectious), clinically worse.
II. Chronic L MCA territory infarct
III. UTI
-Aspiration precautions.
-ABG
-Avoid DIE CUTTER DIAMOND suppressants
-Thiamine 100 mg QD IV
-Brain MRI wo kajal if no clinical improvement
-DVT prophylaxis.
�
I reviewed all radiology and labs along with past medical records pertinent to current medical problems.
�
Thank you for allowing us to participate in the care of this patient. We will continue to follow. Please do not hesitate to contact us with any questions or brenton
Objective Data
Vital Signs
Temp Pulse Resp BP Pulse Ox
36.9 C 109 22 102/67 97
11/03/23 07:00 11/03/23 07:00 11/03/23 07:00 11/03/23 07:00 11/03/23 07:00
Lab Results
11/03/23 02:50
11/03/23 02:50
Sodium 143 mmol/L (135-145) 11/03/23 02:50
Potassium 4.2 mmol/L (3.5-5.1) 11/03/23 02:50
BUN 31 mg/dl (9-20) H 11/03/23 02:50
Glucose 173 mg/dl (70-99) H 11/03/23 02:50
Calcium 9.7 mg/dl (8.4-10.2) 11/03/23 02:50
Pkh-M-Tvlfqgdusdf Pept 73356 pg/ml 11/03/23 05:45
Vitamin B12 529 pg/ml (239-931) 11/02/23 16:40
Patient Allergies
clopidogrel Allergy (Verified 11/01/23 21:55)
Unknown
lisinopril Allergy (Verified 11/01/23 21:55)
Unknown
spironolactone Allergy (Verified 11/01/23 21:55)
Unknown
--- NOTE | 2023-11-03 10:02 | PHA.VAN.FU ---
Vancomycin Assessment / Plan
- Assessment
Renal Function: SCR Increasing
WBC's are: WNL
Concomitant Antimicrobials: piperacillin/tazobactam
- Assessment - Therapeutic Drug Monitoring
Random Level: 12.6 - drawn ~14H after previous dose of 500mg
Received total of 2000mg yesterday
- Dosing Plan
Dosing by Level: Re-dose today (Vanc 1000mg)
- Monitoring Plan
Random Level: 11/04 06
- Follow Up
Pharmacy will continue to follow.
Vancomycin Follow UP
- -
Patient Age: 73
Patient Sex: Male
Vancomycin Day #: 2
Indication: Pulmonary/Respiratory
Requesting Provider: Dr. Yu
Pertinent Antimicrobial Allergies:
no pertinent antibiotic allergies
Height / Weight:
Height 6 ft 2 in
Actual Weight 81.329 kg
Pertinent Past Medical History: DM 2
- Vital Signs / Lab Results
Temp Pulse Resp BP Pulse Ox
98.5 F 109 22 102/67 97
11/03/23 07:00 11/03/23 07:00 11/03/23 07:00 11/03/23 07:00 11/03/23 07:00
Lab Results - Hematology
11/01/23 11/02/23 11/03/23
22:37 09:37 02:50
WBC 7.1 6.2 10.1
Lab Results - Chemistry
11/01/23 11/02/23 11/03/23
22:37 09:37 02:50
BUN 43 H 38 H 31 H
Creatinine 2.8 H 2.2 H 2.4 H
Estimated Creat Clear 27 35 32
Albumin 4.3 3.0 L
11/02/23
00:32
Lactic Acid 1.8
Microbiology Results
11/02/23 00:35 Blood Culture - Preliminary
Blood/Venous No Growth in 24 hours- Final report to follow
11/02/23 00:32 Blood Culture - Preliminary
Blood/Venous No Growth in 24 hours- Final report to follow
11/02/23 00:06 Legionella Urinary Antigen - Final
Urine Negative for Legionella pneumophila Serogroup 1 antigen.
A negative result does not rule out the possiblity of
Legionella infection due to other serogroups or species of
Legionella. Clinical correlation is recommended.
Streptococcus pneumoniae Antigen (M - Final
Negative for Streptococcus pneumoniae antigen.
A negative result does not exclude infection with
Streptococcus pneumoniae. Clinical correlation is
recommended.
11/02/23 00:09 Influenza Types A & B (ESPERANZA) - Final
Nasal Swab Negative for Influenza A & B, NAAT
Negative results must be combined with clinical observations
and patient history.
Nucleic Acid Amplification test (NAAT)performed on the
[employer] platform.
Therapeutic Drug Monitoring
Random Vancomycin 12.6 ug/ml 11/03/23 05:45
--- NOTE | 2023-11-03 10:05 | CON.INTV ---
Consultation
Consultation Request
Date/Time Consultation Requested: 11/03/2023 - 947
Date/Time Consultation Performed: 11/03/2023 - 1004
Requesting Provider: Dr. Branch
Performing Provider: Dr. Allen
Reason for Consultation: AMS
Medical History
-
Chief Complaint: AMS
History of Present Illness:
73-year-old male with a past medical history of PAD, HFrEF, DM type II, hypertension, history of polysubstance abuse now in remission, PTSD and BPH who presents from custodial with altered mental status. Apparently patient was sitting on the
floor, not following commands and also was having reduced p.o. intake prior to arrival. In the ER he was afebrile to 97.4 �F, blood pressure 121/55, saturating 98% on room air. He was confused albeit cooperative and awake. He did have garbled
speech. 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 CXR showed a small left-sided pleural effusion with left lung base hazy opacity
concerning for pneumonia versus subsegmental atelectasis. Labs concerning for ANNY with creatinine of 2.8, glucose 168, ALP elevated at 166, WBC normal at 7.1, Hb 11.7 and platelet count 281. COVID antigen was negative. IV fluids were started with
0.5 L of NS 0.9% given. He was admitted to the hospitalist service for sepsis with suspected pneumonia in the setting of toxic�metabolic encephalopathy. While in the floor he remained confused, agitated and psychiatry and neurology were consulted.
It was unclear what was causing agitation as the patient had reportedly normal mental status in August 2023. There was shaking-like movements which was suspicious for seizures and an EEG was ordered.
On evening of 11/02/2023, patient became tachycardic to the 130s, thrashing around in bed and was violently pulling at restraints and extremely restless. Multiple doses of Ativan were given as well as Zyprexa. Patient required 4-point restraints.
QTc obtained showed elevation at 564 ms. Due to the patient's extreme agitation with altered mental status and need for close monitoring, decision made to transfer to ICU for further care. Critical care services consulted for additional
management/recommendations.
When I saw the patient he was minimally responsive although does awaken when you stimulate him and then he has shaking movements involving his arms and legs. Try to get out of bed. Currently on 2 point restraints. Heart rate 104, BP: 94/56,
O2�saturation: 97% on room air. He is having garbled speech and not able to communicate effectively. Unable to obtain HPI/ROS at this time.
PMHx: HTN, DLP, DM, HFrEF, PAD, CM, chronic hepC, MDD, KAJAL, PTSD, BPH, ambulatory dysfunction, history of polysubstance addiction in remission
PSHx: CABG; right toe amputation
Past Medical History
Past Medical History: Other (above as per HPI)
Past Surgical History: Other (above as per HPI)
Social History
Tobacco: Other (unable to assess)
Alcohol: Other (Unable to obtain at this time due to patient's clinical condition)
Drug: Other (Unable to obtain at this time due to patient's clinical condition)
Family History
Family History: Unable to Obtain
Allergies / Home Medications
Allergies
Allergy/AdvReac Type Severity Reaction Status Date / Time
clopidogrel Allergy Unknown Verified 11/01/23 21:55
lisinopril Allergy Unknown Verified 11/01/23 21:55
spironolactone Allergy Unknown Verified 11/01/23 21:55
Home Medications
Medication Instructions Recorded Confirmed Last Taken Type
aspirin 81 mg chewable tablet 81 mg PO DAILY Blood Clot 11/01/23 11/01/23 Unknown History
Prevention/Tx
atorvastatin 80 mg tablet 80 mg PO HS High Cholesterol 11/01/23 11/01/23 Unknown History
bisacodyl 10 mg rectal suppository 10 mg GA DAILY PRN if no bm in 24 11/01/23 11/01/23 Unknown History
(Dulcolax (bisacodyl)) hrs after MOM
bupropion HCl 150 mg 24 hr tablet, 450 mg PO DAILY Depression 11/01/23 11/01/23 Unknown History
extended release
collagenase clostridium histo. 250 1 applic topical DAILY PRN soilage 11/01/23 11/01/23 Unknown History
unit/gram topical ointment (Santyl)
collagenase clostridium histo. 250 1 applic topical DAILY Skin Issues 11/01/23 11/01/23 Unknown History
unit/gram topical ointment (Santyl)
enoxaparin 40 mg/0.4 mL 40 mg SC DAILY Blood Clot 11/01/23 11/01/23 Unknown History
subcutaneous syringe Prevention
insulin aspart U-100 100 unit/mL 2 - 10 sliding scale dose SC ACHS 11/01/23 11/01/23 Unknown History
(3 mL) subcutaneous pen Diabetes
insulin glargine-yfgn 100 unit/mL 7 unit SC HS Diabetes 11/01/23 11/01/23 Unknown History
(3 mL) subcutaneous pen
magnesium hydroxide 400 mg/5 mL 30 ml PO DAILY PRN if no bm x 3 11/01/23 11/01/23 Unknown History
oral suspension (Milk of Magnesia) days
magnesium oxide 800 mg PO DAILY Electrolyte 11/01/23 11/01/23 Unknown History
Repletion
melatonin 3 mg tablet 6 mg PO HS Sleep 11/01/23 11/01/23 Unknown History
menthol 0.44 %-zinc oxide 20.6 % 1 applic topical BID Skin Issues 11/01/23 11/01/23 Unknown History
topical ointment (Moisture Barrier
Ointment)
metoprolol tartrate 25 mg tablet 25 mg PO Q6H Blood Pressure 11/01/23 11/01/23 Unknown History
olanzapine 5 mg tablet (Zyprexa) 5 mg PO HS mental health 11/01/23 11/01/23 Unknown History
paroxetine HCl 30 mg tablet 60 mg PO DAILY Depression 11/01/23 11/01/23 Unknown History
povidone-iodine 10 % topical 1 applic topical DAILY PRN soilage 11/01/23 11/01/23 Unknown History
solution (Betadine)
povidone-iodine 10 % topical 1 applic topical DAILY Skin Issues 11/01/23 11/01/23 Unknown History
solution (Betadine)
sacubitril 24 mg-valsartan 26 mg 1 tab PO BID Heart Failure 11/01/23 11/01/23 Unknown History
tablet (Entresto)
sodium phosphates 19 gram-7 118 ml GA DAILY PRN if no bm in 11/01/23 11/01/23 Unknown History
gram/118 mL enema (Fleet Enema) 24hrs after bisacodyl
tamsulosin 0.4 mg capsule 0.4 mg PO QPM Urinary Issue 11/01/23 11/01/23 Unknown History
Review of Systems
-
Unable to Obtain full review of systems at this time due to: Acuity
Vitals / Labs / Diagnostic Testing
Vital Signs
Temp Pulse Resp BP Pulse Ox
98.5 F 109 22 102/67 97
11/03/23 07:00 11/03/23 07:00 11/03/23 07:00 11/03/23 07:00 11/03/23 07:00
Lab Data
11/03/23 02:50
11/03/23 02:50
Laboratory Results
11/03/23
08:07
pH 7.42
pCO2 33 L
pO2 83
HCO3 21.4
O2 Delivery Level
Microbiology
11/02/23 00:06 Urine Urine Culture - Preliminary
Sparse growth, too young to be identified. Further results
to follow.
11/02/23 00:35 Blood/Venous Blood Culture - Preliminary
No Growth in 24 hours- Final report to follow
11/02/23 00:32 Blood/Venous Blood Culture - Preliminary
No Growth in 24 hours- Final report to follow
11/02/23 00:06 Urine Legionella Urinary Antigen - Final
Negative for Legionella pneumophila Serogroup 1 antigen.
A negative result does not rule out the possiblity of
Legionella infection due to other serogroups or species of
Legionella. Clinical correlation is recommended.
11/02/23 00:06 Urine Streptococcus pneumoniae Antigen (M - Final
Negative for Streptococcus pneumoniae antigen.
A negative result does not exclude infection with
Streptococcus pneumoniae. Clinical correlation is
recommended.
11/02/23 00:09 Nasal Swab Influenza Types A & B (ESPERANZA) - Final
Negative for Influenza A & B, NAAT
Negative results must be combined with clinical observations
and patient history.
Nucleic Acid Amplification test (NAAT)performed on the
[employer] platform.
Diagnostic Testing:
Physical Exam
-
HEENT: Normocephalic and Anicteric
Cardiovascular: Peripheral Edema (Negative) and Other (Tachycardic)
Respiratory: Wheeze (Negative), Rhonchi (Negative) and Non-Labored Respirations
GI: Soft, Non Distended, Non Tender and Normal Bowel Sounds
Neurology: Other (Shaking-like movements when patient is stimulated; pupils are equally round at 3 mm)
Skin: Warm and Dry
General: Chills (Negative)
Assessment
-
Assessment: 73-year-old male with a PMHx of PAD, HFrEF, DM type II, hypertension, history of polysubstance abuse now in remission, PTSD and BPH who presents from custodial with altered mental status. Patient was having garbled speech and CT
head was negative for acute intracranial abnormality. Chest x-ray showed a left-sided pneumonia and labs was concerning for acute kidney injury as well as evidence of UTI. Initially patient started on antibiotics with cefepime/vancomycin, and this
was changed to vancomycin/Zosyn given patient's continued AMS/agitation. Neurology and psychiatry consulted. Patient's agitation worsened requiring 4-point restraints and multiple doses of Ativan/Zyprexa. Due to the patient's extreme agitation
and need for closer monitoring with more frequent vital signs, patient transferred to ICU for further care and critical care services now consulted for additional management/recommendations.
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
Impression:
#AMS - likely due to additive effect of ativan/zyprexa in setting of TME (due to sepsis and ANNY); less likely CVA but this is on the differential, as is encephalitis/meningitis
#UTI
#Acute kidney injury (baseline Cr: 1.1)
#Myoclonic jerks - appears to occur when patient is stimulated - EEG negative for epileptiform activity and there is moderate-severe generalized nonspecific slowing
#Sinus tachycardia
#L-sided pneumonia
#Agitation requiring 4 point restraints --> now on 2
#Hx of CAD s/p CABG
Plan:
- Continue 2 point restraints; start precedex if agitation worsens - currently he is calm at rest
- Aspiration precautions
- MRI Brain pending for today
- Hold all PO meds until his mentation clears and it is safe to give meds/food
- Continue Abx as per ID; acyclovir added empirically --> if MRI is normal then would stop acyclovir
- Consider LP especially if AMS persists despite antibiotics
- EEG done this AM --> no evidence of seizures
- Neuro & psych on board
- Renally dose all meds
- Avoid TAX DIRECTOR depressants
- Maintain MAP>65
- Replete K>3.5, Mg>1.8
- Maintain euglycemia with goal BG 140-180mg/dL; monitor BG via q6hr POCT
- DVT ppx
Continue ICU level care considering patient's severe acute agitation with need for every hour vital signs and possible need for Precedex.
Critical care statement: A total of 40 minutes of critical care time was provided for this patient today. This includes management of unstable vital signs, evaluation of the patient at bedside, reviewing the patient's pertinent medical records
including radiographs, microbiology, laboratory evaluations, and discussion with primary team, consultants, pharmacy, nutrition, physical therapy, case management, charge nurse, critical care nursing, and respiratory therapy.
Data:
CXR - 11-03-2023:
Small left pleural effusion.
Parenchymal opacity within the left lower lung, slightly improved, with main differential considerations of pneumonia and/or atelectasis.
CT Head 11-01-2023:
No acute intracranial abnormalities.
Small old infarct again seen in the high left centrum semiovale.
Findings again seen compatible with diffuse cortical atrophy with nonspecific white matter changes as described above.
EEG 09-02-2024: IMPRESSION: �This is an abnormal EEG recorded in altered mental status due to a moderate-to severe generalized slowing. This finding indicates diffuse cerebral dysfunction, nonspecific in terms of etiology.
--- NOTE | 2023-11-03 10:14 | PTCARENOTE ---
Pt transferred to room 3366 repot given to Dodie.
--- NOTE | 2023-11-03 10:18 | PTOTSP ---
TIGER TEXT RECEIVED FROM WAITER/WAITRESS ROOM SERVICE STATING THAT ORDERS FOR THERAPY HAVE BEEN CANCELLED AT THIS TIME. WILL DISCHARGE FROM THERAPY.
[2023-11-03] MEDS: VANCOCIN 200 IV (11:43)
[2023-11-03] MEDS: SANTYL OINTMENT 1 APPLIC TOPICAL (11:44)
[2023-11-03 11:54] LABS: Glucose - Point of Care 177 mg/dl (70-99)
--- NOTE | 2023-11-03 11:54 | PTCARENOTE ---
1015-Received pt from [facility] via bed.Eyes open to tactile stimuli.Incomprehensible sounds noted.Does not follow commands.Thrashing with bl upper and lower extremities with tactile stimuli. JARAD 2mm sluggishly reactive.ST noted.IVF infusing.Coarse
breath sounds throughout.Occasional non productive cough noted.POX 95% on RA.NPO.No BM.Bladder scanned 462 ml.Straight cath 350 ml blood tinged urine noted.Skin integrity as documented.Pt for MRI as ordered.
--- NOTE | 2023-11-03 12:33 | EEGC.RPT ---
Continuous EEG Report
Recording
Start Date of Data Reviewed: 11/03/23
Done with Video Recording: Yes
Study Sequence: Initiation of Study
Report
�TECHNICAL REMARKS:��This is a technically satisfactory eighteen channel record employing 21 disc electrodes applied according to a measured international 10-20 electrode placement system.��There were no significant technical difficulties.��The
study was done on a [employer] System.
�
CLINICAL HISTORY: This is a 73 year old man with encephalopathy. This study was requested to look for epileptiform abnormalities.
STUDY DURATION: 32 min, 56 secs
REPORT: �At the onset of the EEG, the patient is in altered mental status.. The background activity consists of 5-6 Hz, impersistent, posteriorly dominant, moderate amplitude, symmetric, and rhythmic activity. Continuous generalized, 2-3 Hz, 30-50
uV at times sharply contoured polymorphic delta activity was seen.� Stepwise intermittent photic stimulation did not induce additional abnormalities. Hyperventilation was not performed. Drowsiness is characterized by low amplitude mixed frequency
activity, decreased eye blinking, and muscle artifact. No epileptiform activity was seen.
�
IMPRESSION: �This is an abnormal EEG recorded in altered mental status due to a moderate-to severe generalized slowing. This finding indicates diffuse cerebral dysfunction, nonspecific in terms of etiology.
�
[2023-11-03] MEDS: NOVOLOG FLEXPEN-LOW RESISTANCE 1 UNITS SC ×2 (12:59→18:48)
--- NOTE | 2023-11-03 14:11 | CON.ID ---
Consultation
-
Date/Time Consultation Requested: 11/03/2023 09:48
Date/Time Consultation Performed: 11/03/2023 1350
Requesting Provider: Dr. Branch
Performing Provider: Dr. Godoy
Reason for Consultation: Change in mental status/encephalopathy
Chief Complaint / Past History
History of Present Illness
Angel Zabala is a 73-year-old male being evaluated at the request of Dr. Branch in regards to encephalopathy. History is obtained from chart review alone as the patient cannot provide any significant history for me. The patient presents to
[facility] on 11/01 from a local [facility] secondary to acute encephalopathy. According to reviewed notes, the patient was reportedly sitting on the floor at the [facility], not allowing anyone to touch him. He reportedly recently was
treated for a UTI, although specific antibiotic coverage is not immediately available. In the ER he was started on empiric antibiotics, and Infectious Diseases is asked to comment upon further antimicrobial management. Since admission, he has had
one fever to 102 degrees.
At this point in time the patient is minimally verbal for me, although somewhat agitated when touched. No further history nor review of systems is available from him.
Past History
Additional Past Medical History:
CHF
DM
Ischemic cardiomyopathy
Anxiety/depression
Hx UTI
Hep C
PVD
Additional Past Surgical History:
Right toe amputation
CABG
Allergy History:
clopidogrel Allergy (Verified 11/01/23 21:55)
Unknown
lisinopril Allergy (Verified 11/01/23 21:55)
Unknown
spironolactone Allergy (Verified 11/01/23 21:55)
Unknown
Medications Reviewed: Yes
Current Antibiotics:
Zosyn
Vancomycin
Social History
Tobacco: Non-Smoker
Alcohol: None
Drug: None
Living: Custodial
Family History
Family History: Unable to Obtain
Review of Systems
Vital Signs
Temp Pulse Resp BP Pulse Ox
98.7 F 104 22 106/66 100
11/03/23 11:28 11/03/23 11:42 11/03/23 11:30 11/03/23 11:42 11/03/23 11:30
Physical Exam
Physical Exam
Constitutional: Acutely Ill, Chronically Ill and Non-toxic
Head: Normocephalic
Eyes: Pupils Equal, Pupils Round, No Conjunctival Hemorrhage and Sclera Anicteric
Oral: No Thrush and No Ulcers
Cardiovascular: S1/S2; Negative S3/S4 or Murmur
Pulmonary: Non Labored
Gastrointestinal: Soft, Non Distended, Normal Bowel Sounds, No Rebound and No Guarding
Genito-Urinary: Leggett and Clear Urine
Extremities: Negative Edema, Cyanosis or Erythema
Neurological: Negative Meningeal Signs
Psychological: Confused and Agitated
Lab / Diagnostic Study Results
11/03/23 02:50
11/03/23 02:50
Abs Immat Gran (auto) 0.0 10^3/uL (0-0.05) 11/02/23 09:37
Absolute Neuts (auto) 4.4 10^3/uL (1.4-6.5) 11/02/23 09:37
Absolute Lymphs (auto) 0.8 10^3/uL (1.2-3.4) L 11/02/23 09:37
Absolute Monos (auto) 0.7 10^3/uL (0.1-0.6) H 11/02/23 09:37
Absolute Basos (auto) 0.1 10^3/uL (0-0.2) 11/02/23 09:37
Immature Gran % 0.3 % (0-0.5) 11/02/23 09:37
Neutrophils % 70.1 % (42.2-75.2) 11/02/23 09:37
Lymphocytes % 12.5 % (20.5-51.1) L 11/02/23 09:37
Monocytes % 10.7 % (1.7-9.3) H 11/02/23 09:37
Eosinophils % 5.1 % (0-6) 11/02/23 09:37
Basophils % 1.3 % (0-2) 11/02/23 09:37
Lactic Acid 1.8 mmol/L (0.7-2.0) 11/02/23 00:32
Procalcitonin < 0.05 ng/ml (0.0-0.25) 11/02/23 09:37
Microbiology Results
Micro:
11/02/23 08:36 MRSA Screen - Final
Nose No Methicillin Resistant Staphylococcus aureus isolated.
11/02/23 00:06 Urine Culture - Preliminary
Urine Sparse growth, too young to be identified. Further results
to follow.
11/02/23 00:35 Blood Culture - Preliminary
Blood/Venous No Growth in 24 hours- Final report to follow
11/02/23 00:32 Blood Culture - Preliminary
Blood/Venous No Growth in 24 hours- Final report to follow
11/02/23 00:06 Legionella Urinary Antigen - Final
Urine Negative for Legionella pneumophila Serogroup 1 antigen.
A negative result does not rule out the possiblity of
Legionella infection due to other serogroups or species of
Legionella. Clinical correlation is recommended.
Streptococcus pneumoniae Antigen (M - Final
Negative for Streptococcus pneumoniae antigen.
A negative result does not exclude infection with
Streptococcus pneumoniae. Clinical correlation is
recommended.
11/02/23 00:09 Influenza Types A & B (ESPERANZA) - Final
Nasal Swab Negative for Influenza A & B, NAAT
Negative results must be combined with clinical observations
and patient history.
Nucleic Acid Amplification test (NAAT)performed on the
[employer] platform.
Imaging:
11/03/2023 CXR (portable): Parenchymal opacity is noted within the left lower lung, improved from prior exam, with pneumonia versus atelectasis on the differential.
11/01/2023 CT head without contrast: No acute intracranial abnormalities. A small old infarct is again seen in the left centrum semiovale.
Assessment / Plan
Acute encephalopathy
Episode of fever
Pyuria; ?complicated UTI
CHF
DM
Ischemic cardiomyopathy
Anxiety/depression
Hx UTI
Hep C
PVD
Recommendations:
At present, no evidence of meningitis on exam, although exact etiology of encephalopathy is not immediately clear.
Continue with current empiric antibiotics (vancomycin; Zosyn)
Await MRI.
Will place on empiric acyclovir for now.
If encephalopathy persists, would consider LP.
Continue to monitor white count and temperature curve.
Await further culture data to guide antimicrobial selection and de-escalation.
Patient currently critically ill and ICU.
Care Review
Plan reviewed with: Physician (Hospitalist)
--- NOTE | 2023-11-03 14:35 | W.PN.UPDATE ---
Update Note
Progress Note Update
patient seen chart reviewed. discussed w nursing. the patient was not able to be roused for any discussion today. spoke with dr sanchez this am re tf to icu. nursing asked if they should place ng for psych meds. i recommended against this.
neuro asked that wellbutrin be held given lowering sz threshhold and that anticholinergic meds be avoided (zyprexa and paxil are very cholinergic) so at this point would dc. there is sometimes a wd syndrome from paxil but it is not dangerous. the
zyprexa dose was relatively small. i dc'ed all three of these. they can certainly be restarted if the need arises. at this point not clear that psych can really assist in this case as a cause for change in mental status is sought. we will sign off
please call if you wish us to reassess. if medications are needed for agitation depakote iv might be considered as it is metabolized by liver and noted creatinine has increased
[2023-11-03] MEDS: ZOVIRAX INJECTION 266 MG IV (15:16)
--- NOTE | 2023-11-03 17:28 | PTCARENOTE ---
Addendum entered by Elizabeth Hernandez RN 11/03/23 17:31:
Awaiting MRI.
Original Note:
Pt assessed.Occasional spontaneous arms straighten, then flailing,bl low ext almost bicycle movement.This movement also occurs with any tactile stimulation.Pt occasionally opens eyes to voice with brief eye contact.Unintelligible speech noted.Leggett
draining milky blood tinged urine.
[2023-11-03 17:44] LABS: Glucose - Point of Care 192 mg/dl (70-99)
[2023-11-03] MEDS: ZINC OXIDE OINTMENT 1 APPLIC TOPICAL (19:56)
--- NOTE | 2023-11-03 20:00 | PTCARENOTE ---
rec`d pt at 1900, drowsy and nonverbal. moves to tactile stimuli. does not follow commands. does not open eyes unless tactile stimuli. ST on monitor. HR low 100s. + pulses. afebrile. bilateral restraints in place. LT AC 20 and Rt AC 20. IV fluids
continued. room air, satting at 95%. coarse and rancorous BS. No BM. alejandro draining pinkish urine. RT lower extremity has old scabbing. safe environment maintained. call anderson in reach.
[2023-11-03] MEDS: NOVOLOG FLEXPEN-LOW RESISTANCE SC (23:38)
[2023-11-03 23:47] LABS: Glucose - Point of Care 122 mg/dl (70-99)
[2023-11-04] VITALS (50 sets, daily range): BP systolic 81–171; BP diastolic 51–96; BMI 22.8
--- NOTE | 2023-11-04 00:08 | PTCARENOTE ---
pt reassessed. no changes in pt assessment.
[2023-11-04] MEDS: PRECEDEX 100 IV ×2 (00:24→13:35)
[2023-11-04] MEDS: ZOSYN 50 IV ×4 (01:03→20:12)
[2023-11-04] MEDS: ZOVIRAX INJECTION 266 MG IV ×2 (03:55→14:08)
--- NOTE | 2023-11-04 04:00 | PTCARENOTE ---
pt reassessed. no changes in pt assessment.
[2023-11-04 05:07] LABS: Hematocrit 35.8 % (39.0-52.0); Hemoglobin 11.4 g/dL (13.0-18.0); Mean Corp Hgb Conc. 31.8 g/dL (33.0-37.0); Mean Corpuscular Hgb 28.7 pg (27.0-31.0); Mean Corpuscular Volume 90.2 fL (80.0-94.0); Mean Platelet Volume 10.1 fL (7.4-10.4); Platelet Count 237 10^3/uL (130-400); Red Blood Cell Count 3.97 10^6/uL (4.70-6.10); Red Cell Dist. Width 15.3 % (11.5-14.5); White Blood Cell Count 9.7 10^3/uL (4.8-10.8)
[2023-11-04 05:30] LABS: Lactic Acid 1.4 mmol/L (0.7-2.0)
[2023-11-04 05:35] LABS: ALT (SGPT) 23 U/L (0-50); AST (SGOT) 82 U/L (17-59); Albumin 3.5 g/dl (3.5-5.0); Alkaline Phosphatase 140 U/L (38-126); Blood Urea Nitrogen 28 mg/dl (9-20); Calcium 9.1 mg/dl (8.4-10.2); Carbon Dioxide 23 mmol/L (22-30); Chloride 114 mmol/L (98-107); Creatine Phosphokinase 524 U/L (55-170); Estimated Creatinine Clearance 36 ml/min; Glucose 165 mg/dl (70-99); Magnesium 2.1 mg/dl (1.6-2.3); Potassium 4.1 mmol/L (3.5-5.1); Sodium 146 mmol/L (135-145); Total Bilirubin 0.8 mg/dl (0.2-1.3); Total Protein 6.8 g/dl (6.3-8.2); eGFR 32.62
[2023-11-04] MEDS: LOPRESSOR IV (05:43)
[2023-11-04] MEDS: NOVOLOG FLEXPEN-LOW RESISTANCE 1 UNITS SC (06:14)
[2023-11-04 06:18] LABS: Glucose - Point of Care 161 mg/dl (70-99)
[2023-11-04 06:33] LABS: Folate 3.9 ng/ml (2.76-20)
[2023-11-04] MEDS: NSS 1000 IV (08:42)
[2023-11-04] MEDS: HEPARIN 5000 UNITS SC ×3 (08:42→23:33)
[2023-11-04] MEDS: SANTYL OINTMENT 1 APPLIC TOPICAL (08:43)
[2023-11-04] MEDS: ZINC OXIDE OINTMENT 1 APPLIC TOPICAL ×2 (08:43→20:13)
[2023-11-04] MEDS: THIAMINE INJECTION 100 MG IV (08:43)
--- NOTE | 2023-11-04 08:43 | W.PN.INTV ---
Today's Communication / Plan
Recommendations
Wean off precedex
MRI brain + LP today
Avoid TIRE WRAPPER depressants
Aspiration precautions
Assessment
-
Assessment: 73-year-old male with a PMHx of PAD, HFrEF, DM type II, hypertension, history of polysubstance abuse now in remission, PTSD and BPH who presents from intermediate with altered mental status. Patient was having garbled speech and CT
head was negative for acute intracranial abnormality. Chest x-ray showed a left-sided pneumonia and labs was concerning for acute kidney injury as well as evidence of UTI. Initially patient started on antibiotics with cefepime/vancomycin, and this
was changed to vancomycin/Zosyn given patient's continued AMS/agitation. Neurology and psychiatry consulted. Patient's agitation worsened requiring 4-point restraints and multiple doses of Ativan/Zyprexa. Due to the patient's extreme agitation
and need for closer monitoring with more frequent vital signs, patient transferred to ICU for further care and critical care services now consulted for additional management/recommendations.
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
Impression:
#AMS - likely due to additive effect of ativan/zyprexa in setting of TME (due to sepsis and ANNY); less likely CVA but this is on the differential, as is encephalitis/meningitis
#UTI
#Acute kidney injury (baseline Cr: 1.1)
#Myoclonic jerks - appears to occur when patient is stimulated - EEG negative for epileptiform activity and there is moderate-severe generalized nonspecific slowing
#Sinus tachycardia - resolved
#L-sided pneumonia
#Agitation requiring 4 point restraints --> now on 2
#Hx of CAD s/p CABG
Plan:
- Continue 2 point restraints; continue precedex
- Aspiration precautions
- MRI Brain pending for today
- LP pending for today as well
- Hold all PO meds until his mentation clears and it is safe to give meds/food
- Continue Abx as per ID (zosyn - started 11/02); acyclovir added empirically --> if MRI is normal then would stop acyclovir
- EEG done on morning of 11/03--> no evidence of seizures
- Neuro & psych on board
- Renally dose all meds
- Avoid TIRE WRAPPER depressants
- Maintain MAP>65
- Replete K>3.5, Mg>1.8
- Maintain euglycemia with goal BG 140-180mg/dL; monitor BG via q6hr POCT
- DVT ppx
Critical care statement: A total of 38 minutes of critical care time was provided for this patient today. This includes management of unstable vital signs, evaluation of the patient at bedside, reviewing the patient's pertinent medical records
including radiographs, microbiology, laboratory evaluations, and discussion with primary team, consultants, pharmacy, nutrition, physical therapy, case management, charge nurse, critical care nursing, and respiratory therapy.
Data:
CXR - 11-03-2023:
Small left pleural effusion.
Parenchymal opacity within the left lower lung, slightly improved, with main differential considerations of pneumonia and/or atelectasis.
CT Head 11-01-2023:
No acute intracranial abnormalities.
Small old infarct again seen in the high left centrum semiovale.
Findings again seen compatible with diffuse cortical atrophy with nonspecific white matter changes as described above.
EEG 09-02-2024: IMPRESSION: �This is an abnormal EEG recorded in altered mental status due to a moderate-to severe generalized slowing. This finding indicates diffuse cerebral dysfunction, nonspecific in terms of etiology.
Subjective Dataa
Subjective Data
Date of Service:
Date of Service: November 04, 2023
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
Subjective:
Pt seen this AM. Precedex started overnight for agitation. Currently at 0.2mcg/kg/hr. HR 75, BP 122/61, SpO2 100% on room air.
Review of Systems
General: Other (negative unless mentioned above)
Objective Data
Data Reviewed
Vital Signs / I&O / Oxygen:
Vital Signs
Temp Pulse Resp BP Pulse Ox
96 F L 89 16 95/60 95
11/04/23 07:25 11/04/23 06:00 11/04/23 06:00 11/04/23 06:00 11/04/23 04:52
Intake and Output
11/03/23 11/04/23 11/05/23
06:59 06:59 06:59
Intake Total 750 / 750 1546 / 1627 243 / 243
Output Total 2049 / 2049 1580 / 1610 100 / 100
Balance -1300 / -1300 - 143 / 143
SaO2 95
Physical Exam
General: Comfortable and Chills (negative)
HEENT: Normocephalic and Anicteric
Cardiovascular: S1-S2
Respiratory: Wheeze (negative), Rhonchi (left base) and Other (Reduced BS and coarse)
GI: Soft, Non Distended and Non Tender
Neurology: Tremors (Negative), Lethargic and Other (Pupils 4 mm and sluggish; patient responds to questions appropriately)
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
Labs/Micro/Reports
Lab Data
11/04/23 04:50
11/04/23 04:50
Laboratory Results
11/03/23
10:18
PT Cancelled
INR Cancelled
APTT Cancelled
Microbiology
11/02/23 00:35 Blood/Venous Blood Culture - Preliminary
No Growth in 48 hours- Final report to follow
11/02/23 00:32 Blood/Venous Blood Culture - Preliminary
No Growth in 48 hours- Final report to follow
11/02/23 08:36 Nose MRSA Screen - Final
No Methicillin Resistant Staphylococcus aureus isolated.
11/02/23 00:06 Urine Urine Culture - Preliminary
Sparse growth, too young to be identified. Further results
to follow.
11/02/23 00:06 Urine Legionella Urinary Antigen - Final
Negative for Legionella pneumophila Serogroup 1 antigen.
A negative result does not rule out the possiblity of
Legionella infection due to other serogroups or species of
Legionella. Clinical correlation is recommended.
11/02/23 00:06 Urine Streptococcus pneumoniae Antigen (M - Final
Negative for Streptococcus pneumoniae antigen.
A negative result does not exclude infection with
Streptococcus pneumoniae. Clinical correlation is
recommended.
11/02/23 00:09 Nasal Swab Influenza Types A & B (ESPERANZA) - Final
Negative for Influenza A & B, NAAT
Negative results must be combined with clinical observations
and patient history.
Nucleic Acid Amplification test (NAAT)performed on the
[employer] platform.
--- NOTE | 2023-11-04 09:32 | W.PN.HOSP.TC ---
Today's Communication/Plan
-
try to obtain MRI
renew precedex
renew drips
cont abx
Assessment / Plan
Assessment / Plan
pt is a 73 year old male
Acute metabolic encephalopathy vs delirium (more likely) possibly from UTI or pna (not hypoxic), WBC WNL--CT head with old stroke--ammonia < 9, TSH WNL--appreciate psychiatry and neurology--unclear whether we will be able to get the MRI as I do not
believe the patient will stay still--patient remains in 2-point restraints--more awake, will try to get MRI--possibly due to medications? doubt seizure or post ictal state--cont to monitor
Sepsis with unclear source, possible HCAP with unknown organism vs UTI--stopped cefepime as can cause MS changes--cont zosyn/vanco--blood culture/urine culture/Covid/flu/legionella/Strep pneumonia all negative--lactic acid WNL--apprec infectious
disease, patient had history of infection in his left leg requiring interventional radiology aspiration although cultures apparently were negative per the patient's daughter
Alk phos elevation--not clinically significant
Chronic hep C
Hx of CVA
chronic ambulatory dysfunction
Anxiety/depression
chronic HFrEF/Ischemic CMP--cannot tolerate oral meds at this time--IV as able--NPO--proBNP is 10,100 likely iatrogenic induced from IV fluids as he is unable to take anything by mouth at this time--once transferred to ICU, consider stopping IV
fluids and placing small bore feeding tube and starting tube feeding for nutrition
DM type 2--insulin low dose
CODE STATUS--patient was placed as DNR/DNI as per his [facility] paperwork, however I spoke with the patient's daughter this morning and she stated that as the patient has gotten older he has changed his mind and if something reversible is
possible he would like to be resuscitated--therefore I will change his CODE STATUS to FULL CODE at this time
His daughter stated that he has been normal, walking, talking as most recently as Miri--but this is a change for him--he has been hospitalized [facility] which the daughter paid to transport him there since they know him well--apparently
extensive workup at the [facility] was negative
DVT ppx hep
Total Critical Care Time 31 minutes. I was immediately available to the patient and staff. I personally examined, reviewed labs, diagnostic images/reports, interpretations, treatment plans, discussed patient care with other providers and family
or caregivers (if patient is unable to make decisions), entered orders as appropriate and documented the medical record.
Anticipated Discharge: > 48 hours
Subjective/Interval History
-
Date of Service: November 04, 2023
pt AWAKE!--does answer questions albeit yes/no--denies pain
Objective Data
-
Labs:
Laboratory Results
11/04/23
04:50
WBC 9.7
Hgb 11.4 L
Hct 35.8 L
Plt Count 237
Sodium 146 H
Potassium 4.1
Chloride 114 H
Carbon Dioxide 23
BUN 28 H
Creatinine 2.1 H
Glucose 165 H
Calcium 9.1
Total Bilirubin 0.8
AST 82 H
ALT 23
Alkaline Phosphatase 140 H
Vital Signs:
max temp for 24 hours
11/03/23
23:49
Temp 100.1 F
Vital Signs
Temp Pulse Resp BP Pulse Ox
96 F L 89 16 95/60 95
11/04/23 07:25 11/04/23 06:00 11/04/23 06:00 11/04/23 06:00 11/04/23 04:52
I&O
11/03/23 11/04/23 11/05/23
06:59 06:59 06:59
Intake Total 750 / 750 1546 / 1546
Output Total 2049 / 2049 1580 / 1580
Balance -1300 / -1300 -34 / -34
Review of Systems
-
Unable to obtain full review of systems at this time due to: Acuity (denies pain, SOB, n/v/d/dysuria)
Physical Exam
-
General: Well Developed, Well Nourished and No Apparent Distress
HEENT: Normocephalic and Atraumatic; Negative Oxygen
Respiratory: Clear to Auscultation; Negative Wheezes or Rhonchi
Cardiac: Regular Rhythm; Negative S1/S2 or Murmur
GI: Soft, Nontender, Nondistended and Normal Bowel Sounds
Musculoskeletal: No Clubbing, No Cyanosis and No Edema
Skin: Warm
Neuro: Awake
--- NOTE | 2023-11-04 09:35 | W.PN.ID1 ---
Date of Service
Date of Service: November 04, 2023
Today's Communication
Continue antibiotics.
Assessment / Plan
Acute encephalopathy
Episode of fever
Pyuria; ?complicated UTI
CHF
DM
Ischemic cardiomyopathy
Anxiety/depression
Hx UTI
Hep C
PVD
Recommendations:
At present, no evidence of meningitis on exam. Etiology of encephalopathy remains cryptic
Continue with current empiric antibiotics (Zosyn; d#3)
- Await MRI.
- Continue acyclovir for now.
- Consider LP.
Continue to monitor white count and temperature curve.
Await further culture data to guide antimicrobial selection and de-escalation.
Prognosis remians guarded. Patient remains critically ill and ICU.
����������������������������������������������������������
Chief Complaint
-: Other (Encephalopathy)
Subjective / Review of Systems
Patient seen and examined. Nursing reports improvement in agitation overnight. No reported fevers.
Vital Signs / Physical Exam
Vital Signs
Vital Signs
Temp Pulse Resp BP Pulse Ox
96 F L 89 16 95/60 95
11/04/23 07:25 11/04/23 06:00 11/04/23 06:00 11/04/23 06:00 11/04/23 04:52
Physical Exam
Constitutional: Chronically Ill and Non-toxic
Eyes: Sclera Anicteric
Cardiovascular: S1/S2; Negative S3/S4
Pulmonary: Non Labored; Negative Wheezes or Rales
Gastrointestinal: Soft and Non Distended
Extremities: Negative Edema, Cyanosis or Erythema
Musculoskeletal: Negative Joint Swelling
Neurological: Negative Meningeal Signs (Neck supple and without rigidity.)
Psychological: Calm
Objective Data
Lab Data
Lab Results
11/04/23 04:50
11/04/23 04:50
PT Cancelled 11/03/23 10:18
INR Cancelled 11/03/23 10:18
APTT Cancelled 11/03/23 10:18
Estimated Creat Clear 36 ml/min 11/04/23 04:50
Lactic Acid 1.4 mmol/L (0.7-2.0) 11/04/23 04:50
Total Bilirubin 0.8 mg/dl (0.2-1.3) 11/04/23 04:50
AST 82 U/L (17-59) H 11/04/23 04:50
ALT 23 U/L (0-50) 11/04/23 04:50
Alkaline Phosphatase 140 U/L (38-126) H 11/04/23 04:50
Most recent labs reviewed.
Micro Results:
11/02/23 00:35 Blood Culture - Preliminary
Blood/Venous No Growth in 48 hours- Final report to follow
11/02/23 00:32 Blood Culture - Preliminary
Blood/Venous No Growth in 48 hours- Final report to follow
11/02/23 08:36 MRSA Screen - Final
Nose No Methicillin Resistant Staphylococcus aureus isolated.
11/02/23 00:06 Urine Culture - Preliminary
Urine Sparse growth, too young to be identified. Further results
to follow.
11/02/23 00:06 Legionella Urinary Antigen - Final
Urine Negative for Legionella pneumophila Serogroup 1 antigen.
A negative result does not rule out the possiblity of
Legionella infection due to other serogroups or species of
Legionella. Clinical correlation is recommended.
Streptococcus pneumoniae Antigen (M - Final
Negative for Streptococcus pneumoniae antigen.
A negative result does not exclude infection with
Streptococcus pneumoniae. Clinical correlation is
recommended.
11/02/23 00:09 Influenza Types A & B (ESPERANZA) - Final
Nasal Swab Negative for Influenza A & B, NAAT
Negative results must be combined with clinical observations
and patient history.
Nucleic Acid Amplification test (NAAT)performed on the
[employer] platform.
Imaging:
11/03/2023 CXR (portable): Parenchymal opacity is noted within the left lower lung, improved from prior exam, with pneumonia versus atelectasis on the differential.
11/01/2023 CT head without contrast: No acute intracranial abnormalities. A small old infarct is again seen in the left centrum semiovale.
Care Review
Plan reviewed with: Physician (Hospitalist)
--- NOTE | 2023-11-04 09:38 | CM ---
Patient seen at bedside. Patient minimally verbally responsive to physician. Patient daughter here to visit last night. Patient from [facility] and plan is to return there when medically appropriate. CM will continue to follow for discharge
planning needs.
Plan; return to SNF; [facility].
--- NOTE | 2023-11-04 10:02 | PTCARENOTE ---
Received pt with eyes closed.Eyes open to verbal stimulation.Pt was interacting,answering question,assisting with repositioning during am care.Speech is still garbled,but occasionally intelligible.Pt shook his head no when questioned about pain,or
wether he wanted to watch TV.SR with rare PVC noted.IVF reduced to 40 ml/hr as per MD order.Precedex infusing.Decreased coarse breath sounds throughout.POX 95% on RA.NPO.No BM.Leggett draining pink tinged urine.Skin integrity as documented.Pt for MRI
as per MD order.Plan of care discussed.
--- NOTE | 2023-11-04 11:00 | W.PN.NEURO.1 ---
Today's Communication / Plan
-
.
Subjective/Objective
Subjective Data
Date of Service: November 04, 2023
24 h events: hypotensive down to 81/57, hypothermic, SaO2 90-98 % on RA, transferred to ICU. Agitated, started on Precedex.
Off Cefepime, continues to be on zovirax
Labs: gluc 173, normal Na, WBC< Cr 2.4, CK 331, normal TSH.
MAR: Ativan 1.5 mg IV at 19:20, 1mg at 17:32 on 11/02/2023.
Routine EEG(11/03/2023)-generalized slowing, no epileptiform abnormalcies.
CT head(11/01/2023) atrophy, chronic L MCA territory subcortical infarct.
CXR(11/03/2023)-small left pleural effusion. Parenchymal opacity within the left lower lung, slightly improved, with main differential considerations of pneumonia and/or atelectasis.
Brain MRI-pending.
PMH: HTN, DLP, DM, HFrEF, PAD, CM, chronic hep C, MDD, KAJAL, PTSD, BPH, ambulatory dysfunction, history of polysubstance addiction in remission
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
FH: Unknown
All: Lisinopril, spironolactone, Plavix
ROS: Unable due to encephalopathy
�
General: Restrained, in no acute distress
Cardio: Regular rate and rhythm. Extremities are without cyanosis or edema.
Neuro:
Mental Status: Lethargic, moves UE/LE to pain. Does not follow requests. No verbal output.
Cranial Nerves: Pupils are equally round and reactive to light.� + corneals, oculocephalics.
Motor: � �Moves all limbs within bed plane
Sensory:� � Unable to assess due to encephalopathy
Coordination: No tremors or myoclonic movements
Gait: � � � � � deferred
Assessment and Plan:
�
I. Multifactorial encephalopathy (toxic, infectious), clinically stable
II. Chronic L MCA territory infarct
III. UTI
-Aspiration precautions.
-Thiamine 100 mg QD IV
-CSF studies if no clinical improvement
-Brain MRI wo kajal
-DVT prophylaxis.
�
I reviewed all radiology and labs along with past medical records pertinent to current medical problems. Total time spent�40 minutes
�
Thank you for allowing us to participate in the care of this patient. We will continue to follow. Please do not hesitate to contact us with any questions or concerns.
Objective Data
Vital Signs
Temp Pulse Resp BP Pulse Ox
35.5 C L 91 27 113/63 98
11/04/23 07:25 11/04/23 10:00 11/04/23 10:00 11/04/23 09:30 11/04/23 10:00
Lab Results
11/04/23 04:50
11/04/23 04:50
PT Cancelled 11/03/23 10:18
INR Cancelled 11/03/23 10:18
APTT Cancelled 11/03/23 10:18
Sodium 146 mmol/L (135-145) H 11/04/23 04:50
Potassium 4.1 mmol/L (3.5-5.1) 11/04/23 04:50
BUN 28 mg/dl (9-20) H 11/04/23 04:50
Glucose 165 mg/dl (70-99) H 11/04/23 04:50
Calcium 9.1 mg/dl (8.4-10.2) 11/04/23 04:50
Mle-G-Tdvnynhzbna Pept 89076 pg/ml 11/03/23 05:45
Vitamin B12 529 pg/ml (239-931) 11/02/23 16:40
Patient Allergies
clopidogrel Allergy (Verified 11/01/23 21:55)
Unknown
lisinopril Allergy (Verified 11/01/23 21:55)
Unknown
spironolactone Allergy (Verified 11/01/23 21:55)
Unknown
[2023-11-04] MEDS: 0.45%NACL 1000 IV (12:12)
[2023-11-04] MEDS: NOVOLOG FLEXPEN-LOW RESISTANCE SC ×2 (12:16→17:41)
[2023-11-04] MEDS: LOPRESSOR 5 MG IV ×3 (12:16→23:32)
--- NOTE | 2023-11-04 12:23 | PTCARENOTE ---
Pt assessed.No change in assessment noted.
[2023-11-04 12:27] LABS: Glucose - Point of Care 146 mg/dl (70-99)
--- NOTE | 2023-11-04 16:10 | PTCARENOTE ---
Pt assessed.Pt is more awake.Opens eyes consistently.Speech is less garbled.Pt follows commands.Awaiting MRI.
[2023-11-04 17:42] LABS: Glucose - Point of Care 146 mg/dl (70-99)
--- NOTE | 2023-11-04 20:42 | PTCARENOTE ---
Received patient in bed and on Precedex gtt at 0.2 mcg (4ml/hr), and 1/2NS @ 75 ml/hr. Patient arouses to verbal commands. Oriented x2. Pt states that he was born 01/10/1987 despite multiple attempts. Speech is slightly garbled.Plan of care for the
shift reviewed with the patient. Denies pain. The patient MAEx4 and assisted with repositioning and moving up the bed. Sinus rhythm on the monitor. Temp 97.5. Coarse breath sounds with occasional nonproductive cough. SpO2 at 100% on room air.
Hypoactive BS. abdomen is soft and nontender, Leggett catheter draining pink tinged urine.Bilateral wrist restraints are in use. Bed in the lowest position. Safety measures maintained.
[2023-11-04 23:50] LABS: Glucose - Point of Care 123 mg/dl (70-99)
[2023-11-05] VITALS (29 sets, daily range): BP systolic 106–191; BP diastolic 59–122; PULSE 103; BMI 22.7
[2023-11-05] MEDS: NOVOLOG FLEXPEN-LOW RESISTANCE SC ×2 (00:01→12:37)
--- NOTE | 2023-11-05 00:16 | PTCARENOTE ---
Patient reassessed, remains AAOx2 and following commands. Pt assists with repositioning. UOP is yellow via alejandro catheter. No changes from the previous assessment.
[2023-11-05] MEDS: ZOSYN 50 IV ×4 (03:26→21:34)
[2023-11-05] MEDS: 0.45%NACL 1000 IV (03:27)
[2023-11-05] MEDS: ZOVIRAX INJECTION 266 MG IV (03:59)
[2023-11-05 04:26] LABS: Hematocrit 32.3 % (39.0-52.0); Hemoglobin 10.4 g/dL (13.0-18.0); Mean Corp Hgb Conc. 32.2 g/dL (33.0-37.0); Mean Corpuscular Hgb 28.5 pg (27.0-31.0); Mean Corpuscular Volume 88.5 fL (80.0-94.0); Platelet Count 214 10^3/uL (130-400); Red Blood Cell Count 3.65 10^6/uL (4.70-6.10); White Blood Cell Count 7.3 10^3/uL (4.8-10.8)
[2023-11-05 04:50] LABS: ALT (SGPT) 16 U/L (0-50); AST (SGOT) 47 U/L (17-59); Albumin 2.9 g/dl (3.5-5.0); Alkaline Phosphatase 102 U/L (38-126); Blood Urea Nitrogen 23 mg/dl (9-20); Calcium 8.9 mg/dl (8.4-10.2); Carbon Dioxide 21 mmol/L (22-30); Chloride 111 mmol/L (98-107); Estimated Creatinine Clearance 54 ml/min; Glucose 163 mg/dl (70-99); Magnesium 1.6 mg/dl (1.6-2.3); Potassium 3.5 mmol/L (3.5-5.1); Sodium 145 mmol/L (135-145); Total Bilirubin 0.6 mg/dl (0.2-1.3); eGFR 53.07
--- NOTE | 2023-11-05 04:54 | PTCARENOTE ---
Patient reassessed, restless and AAOx2. The patient follows commands. Reorientation to place and situation provided. Speech remains slightly garbled. UOP is yellow with sediments. Patient cleansed with CHG wipes. Linens changed.Restraints in use.
Safety measures maintained.
[2023-11-05] MEDS: LOPRESSOR 5 MG IV ×4 (06:02→23:37)
[2023-11-05] MEDS: NOVOLOG FLEXPEN-LOW RESISTANCE 300 UNITS SC (06:09)
[2023-11-05 06:20] LABS: Glucose - Point of Care 150 mg/dl (70-99)
[2023-11-05] MEDS: KCL 160 MEQ IV (07:04)
--- NOTE | 2023-11-05 07:11 | W.PN.ID1 ---
Date of Service
Date of Service: November 05, 2023
Today's Communication
Continue antibiotics
Assessment / Plan
Acute encephalopathy
Episode of fever
Pyuria; ?complicated UTI
CHF
DM
Ischemic cardiomyopathy
Anxiety/depression
Hx UTI
Hep C
PVD
Recommendations:
At present, no evidence of meningitis on exam. Etiology of encephalopathy remains cryptic
Continue with current empiric antibiotics (Zosyn; d#3)
- Await MRI; scheduled for today.
- Continue acyclovir for now.
- Consider LP.
Continue to monitor white count and temperature curve.
Await further culture data to guide antimicrobial selection and de-escalation.
Prognosis remians guarded. Patient remains critically ill in ICU.
����������������������������������������������������������
Chief Complaint
-: Other (Encephalopathy)
Subjective / Review of Systems
Seen and examined. No significant changes overnight.
Vital Signs / Physical Exam
Vital Signs
Vital Signs
Temp Pulse Resp BP Pulse Ox
97.7 F 77 21 157/69 97
11/05/23 03:32 11/05/23 06:02 11/05/23 06:00 11/05/23 06:02 11/05/23 06:00
Physical Exam
Constitutional: Chronically Ill and Non-toxic
Eyes: Sclera Anicteric
Cardiovascular: S1/S2; Negative S3/S4
Pulmonary: Non Labored; Negative Rales or Rhonchi
Gastrointestinal: Normal Bowel Sounds; Negative Non Distended
Extremities: Negative Cyanosis or Erythema
Neurological: Other (Arousable. Answer simple questions.)
Objective Data
Lab Data
Lab Results
11/05/23 03:51
11/05/23 03:51
PT Cancelled 11/03/23 10:18
INR Cancelled 11/03/23 10:18
APTT Cancelled 11/03/23 10:18
Estimated Creat Clear 54 ml/min 11/05/23 03:51
Lactic Acid 1.4 mmol/L (0.7-2.0) 11/04/23 04:50
Total Bilirubin 0.6 mg/dl (0.2-1.3) 11/05/23 03:51
AST 47 U/L (17-59) 11/05/23 03:51
ALT 16 U/L (0-50) 11/05/23 03:51
Alkaline Phosphatase 102 U/L (38-126) 11/05/23 03:51
Most recent labs reviewed.
Micro Results:
11/02/23 00:35 Blood Culture - Preliminary
Blood/Venous No Growth in 72 hours- Final report to follow
11/02/23 00:32 Blood Culture - Preliminary
Blood/Venous No Growth in 72 hours- Final report to follow
11/02/23 00:06 Urine Culture - Final
Urine Yeast
11/02/23 08:36 MRSA Screen - Final
Nose No Methicillin Resistant Staphylococcus aureus isolated.
11/02/23 00:06 Legionella Urinary Antigen - Final
Urine Negative for Legionella pneumophila Serogroup 1 antigen.
A negative result does not rule out the possiblity of
Legionella infection due to other serogroups or species of
Legionella. Clinical correlation is recommended.
Streptococcus pneumoniae Antigen (M - Final
Negative for Streptococcus pneumoniae antigen.
A negative result does not exclude infection with
Streptococcus pneumoniae. Clinical correlation is
recommended.
11/02/23 00:09 Influenza Types A & B (ESPERANZA) - Final
Nasal Swab Negative for Influenza A & B, NAAT
Negative results must be combined with clinical observations
and patient history.
Nucleic Acid Amplification test (NAAT)performed on the
[employer] platform.
Imaging:
11/03/2023 CXR (portable): Parenchymal opacity is noted within the left lower lung, improved from prior exam, with pneumonia versus atelectasis on the differential.
11/01/2023 CT head without contrast: No acute intracranial abnormalities. A small old infarct is again seen in the left centrum semiovale.
--- NOTE | 2023-11-05 08:13 | W.PN.INTV ---
Today's Communication / Plan
Recommendations
Weaned off precedex
Avoid THERMOFORMING MACHINE OPERATOR depressants
Diet as per SAP INTEGRATION ARCHITECT
Patient stable for downgrade out of ICU to telemetry. Light Out Examiner/pulmonary service will now sign off. Please reconsult if there are any additional questions/concerns, or if respiratory deterioration occurs.
Assessment
-
Assessment: 73-year-old male with a PMHx of PAD, HFrEF, DM type II, hypertension, history of polysubstance abuse now in remission, PTSD and BPH who presents from detention with altered mental status. Patient was having garbled speech and CT
head was negative for acute intracranial abnormality. Chest x-ray showed a left-sided pneumonia and labs was concerning for acute kidney injury as well as evidence of UTI. Initially patient started on antibiotics with cefepime/vancomycin, and this
was changed to vancomycin/Zosyn given patient's continued AMS/agitation. Neurology and psychiatry consulted. Patient's agitation worsened requiring 4-point restraints and multiple doses of Ativan/Zyprexa. Due to the patient's extreme agitation
and need for closer monitoring with more frequent vital signs, patient transferred to ICU for further care and critical care services now consulted for additional management/recommendations.
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
Impression:
#AMS (resolved) - likely due to additive effect of ativan/zyprexa in setting of TME (due to sepsis and ANNY); doubtful to be CVA now that he is back to normal; also doubt encephalitis/meningitis
#UTI
#Acute kidney injury (baseline Cr: 1.1) - improving
#Myoclonic jerks (resolved) - appeared to occur when patient was stimulated - EEG negative for epileptiform activity and there is moderate-severe generalized nonspecific slowing
#Sinus tachycardia - resolved
#L-sided pneumonia
#Agitation requiring 4 point restraints --> now resolved and he is off restraints
#Hx of CAD s/p CABG
Plan:
- Precedex weaned off, and pt back to normal mentation, is AAOx3 and aware of current situation
- MRI Brain shows no acute intracranial abnormality --> DC acyclovir
- No need for LP pending given he is back to normal
- SAP INTEGRATION ARCHITECT evaluating the patient --> can resume PO meds + diet if cleared by them
- Continue Abx as per ID (zosyn - started 11/02); acyclovir added empirically --> given that MRI is normal, would stop acyclovir -->I have reviewed this with ID and Dr. Godoy agrees
- EEG done on morning of 11/03--> no evidence of seizures
- Neuro & psych on board
- Renally dose all meds
- Avoid THERMOFORMING MACHINE OPERATOR depressants
- Maintain MAP>65
- Replete K>3.5, Mg>1.8
- Maintain euglycemia with goal BG 140-180mg/dL; monitor BG via q6hr POCT
- DVT ppx
Dispo: Patient stable for downgrade out of ICU to telemetry. Light Out Examiner/pulmonary service will now sign off. Please reconsult if there are any additional questions/concerns, or if respiratory deterioration occurs. Thank you for allowing us to be
involved in the care of this patient.
Data:
CXR - 11-03-2023:
Small left pleural effusion.
Parenchymal opacity within the left lower lung, slightly improved, with main differential considerations of pneumonia and/or atelectasis.
MRI Brain 11-05-2023: No acute intracranial abnormality noted. Chronic senescent changes.
CT Head 11-01-2023:
No acute intracranial abnormalities.
Small old infarct again seen in the high left centrum semiovale.
Findings again seen compatible with diffuse cortical atrophy with nonspecific white matter changes as described above.
EEG 09-02-2024: IMPRESSION: �This is an abnormal EEG recorded in altered mental status due to a moderate-to severe generalized slowing. This finding indicates diffuse cerebral dysfunction, nonspecific in terms of etiology.
Subjective Dataa
Subjective Data
Date of Service:
Date of Service: November 05, 2023
Chief Complaint: Light Out Examiner Follow Up
Subjective:
Patient much more awake today. Following commands, answering questions appropriately and off Precedex. Afebrile overnight. BP 160/90, heart rate 90. Patient denies headache, chest pain, shortness of breath, fevers or chills.
Review of Systems
General: Other (Negative unless mentioned above)
Objective Data
Data Reviewed
Vital Signs / I&O / Oxygen:
Vital Signs
Temp Pulse Resp BP Pulse Ox
97.7 F 77 21 157/69 97
11/05/23 03:32 11/05/23 06:02 11/05/23 06:00 11/05/23 06:02 11/05/23 06:00
Intake and Output
11/04/23 11/05/23 11/06/23
06:59 06:59 06:59
Intake Total 1546 / 1627 1850 / 1850
Output Total 1580 / 1610 1685 / 1685
Balance -34 165 / 165
SaO2 97
Physical Exam
General: Comfortable and Chills (negative)
HEENT: Normocephalic and Anicteric
Cardiovascular: S1-S2 and Peripheral Edema (negative)
Respiratory: Wheeze (negative), Crackles (negative) and Rhonchi (faint at L-base)
GI: Soft, Non Distended and Non Tender
Neurology: AO x 3 and Tremors (Negative)
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
Labs/Micro/Reports
Lab Data
11/05/23 03:51
11/05/23 03:51
Microbiology
11/02/23 00:35 Blood/Venous Blood Culture - Preliminary
No Growth in 72 hours- Final report to follow
11/02/23 00:32 Blood/Venous Blood Culture - Preliminary
No Growth in 72 hours- Final report to follow
11/02/23 00:06 Urine Urine Culture - Final
Yeast
11/02/23 08:36 Nose MRSA Screen - Final
No Methicillin Resistant Staphylococcus aureus isolated.
11/02/23 00:06 Urine Legionella Urinary Antigen - Final
Negative for Legionella pneumophila Serogroup 1 antigen.
A negative result does not rule out the possiblity of
Legionella infection due to other serogroups or species of
Legionella. Clinical correlation is recommended.
11/02/23 00:06 Urine Streptococcus pneumoniae Antigen (M - Final
Negative for Streptococcus pneumoniae antigen.
A negative result does not exclude infection with
Streptococcus pneumoniae. Clinical correlation is
recommended.
--- NOTE | 2023-11-05 08:23 | W.PN.HOSP.TC ---
Today's Communication/Plan
-
renew restraints
cont IVF
speech eval
attempt MRI
may need LP
Assessment / Plan
Assessment / Plan
pt is a 73 year old male
Acute metabolic encephalopathy vs delirium (more likely) possibly from UTI or pna (not hypoxic), WBC WNL--CT head with old stroke--ammonia < 9, TSH WNL--appreciate psychiatry and neurology--unclear whether we will be able to get the MRI as I do not
believe the patient will stay still--patient remains in 2-point restraints--will try to get MRI--cont to monitor
Sepsis with unclear source, possible HCAP with unknown organism vs UTI--stopped cefepime as can cause MS changes--cont zosyn/vanco--blood culture/urine culture/Covid/flu/legionella/Strep pneumonia all negative--lactic acid WNL--apprec ID, patient
had history of infection in his left leg requiring interventional radiology aspiration although cultures apparently were negative per the patient's daughter--may need LP
Alk phos elevation--not clinically significant
Chronic hep C
Hx of CVA
chronic ambulatory dysfunction
Anxiety/depression
chronic HFrEF/Ischemic CMP--cannot tolerate oral meds at this time--IV as able--NPO--proBNP is 10,100 likely iatrogenic induced from IV fluids as he is unable to take anything by mouth at this time--once transferred to ICU, consider stopping IV
fluids and placing small bore feeding tube and starting tube feeding for nutrition
DM type 2--insulin low dose
CODE STATUS--patient was placed as DNR/DNI as per his shelter paperwork, however I spoke with the patient's daughter this morning and she stated that as the patient has gotten older he has changed his mind and if something reversible is
possible he would like to be resuscitated--therefore I will change his CODE STATUS to FULL CODE at this time
His daughter stated that he has been normal, walking, talking as most recently as Miri--but this is a change for him--[facility] which [facility] daughter paid to transport him there since they know him well--apparently
extensive workup at the [facility] was negative
DVT ppx hep
Total Critical Care Time 30 minutes. I was immediately available to the patient and staff. I personally examined, reviewed labs, diagnostic images/reports, interpretations, treatment plans, discussed patient care with other providers and family
or caregivers (if patient is unable to make decisions), entered orders as appropriate and documented the medical record.
Anticipated Discharge: > 48 hours
Subjective/Interval History
-
Date of Service: November 05, 2023
pt answers yes/no but is sleepy this AM
Objective Data
-
Labs:
Laboratory Results
11/05/23
03:51
WBC 7.3
Hgb 10.4 L
Hct 32.3 L
Plt Count 214
Sodium 145
Potassium 3.5
Chloride 111 H
Carbon Dioxide 21 L
BUN 23 H
Creatinine 1.4 H
Glucose 163 H
Calcium 8.9
Total Bilirubin 0.6
AST 47
ALT 16
Alkaline Phosphatase 102
Vital Signs:
max temp for 24 hours
11/04/23
23:05
Temp 98.0 F
Vital Signs
Temp Pulse Resp BP Pulse Ox
97.7 F 77 21 157/69 97
11/05/23 03:32 11/05/23 06:02 11/05/23 06:00 11/05/23 06:02 11/05/23 06:00
I&O
11/04/23 11/05/23 11/06/23
06:59 06:59 06:59
Intake Total 1546 / 1627 1850 / 1850
Output Total 1580 / 1610 1685 / 1685
Balance - 17 165 / 165
Review of Systems
-
All other systems: Reviewed and negative
Physical Exam
-
General: Well Developed, Well Nourished and No Apparent Distress
HEENT: Normocephalic and Atraumatic; Negative Oxygen
Respiratory: Clear to Auscultation; Negative Wheezes or Rhonchi
Cardiac: Regular Rhythm and S1/S2; Negative Murmur
GI: Soft, Nontender, Nondistended and Normal Bowel Sounds
Musculoskeletal: No Clubbing, No Cyanosis, No Edema and Other (right transmetatarsal amputation)
Psych: Calm
[2023-11-05] MEDS: ZINC OXIDE OINTMENT 1 APPLIC TOPICAL ×2 (08:26→20:03)
[2023-11-05] MEDS: HEPARIN 5000 UNITS SC ×3 (08:26→23:35)
--- NOTE | 2023-11-05 10:17 | W.PN.NEURO.1 ---
Today's Communication / Plan
-
.
Subjective/Objective
Subjective Data
Date of Service: November 05, 2023
24 h events: normotensive, saturating well. Off restrains. MEntal status has significantly improved.
PMH: HTN, DLP, DM, HFrEF, PAD, CM, chronic hep C, MDD, KAJAL, PTSD, BPH, ambulatory dysfunction, history of polysubstance addiction in remission
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
FH: Unknown
All: Lisinopril, spironolactone, Plavix
General:in NAD
Cardio: Regular rate and rhythm. Extremities are without cyanosis or edema.
Neuro:
Mental Status: Awake, oriented to self. Attends to examiner. Mildly impaired attention and preserved comprehension. Follows simple requests consistently. No hemineglect. NOnfluent.
Cranial Nerves: Orthophoric primary gaze. Extraocular movement intact. Blinks to threat bilaterally. No facial weakness, preserved hearing, mild dysarthria. No dysphonia
Motor: � �Increased motor tone in lower extremities, all limbs are antigravity
Coordination: No tremors or myoclonic movements
Gait: � � � � � deferred
Assessment and Plan:
�
I. Multifactorial encephalopathy, clinically improved
II. Chronic L MCA territory infarct
III. UTI
-Delirium precaution( frequent reassurance, touch, and verbal orientation; delusions and hallucinations should be neither endorsed nor challenged. Antipsychotic agents have limited efficacy and are associated with increased mortality)
-Thiamine 100 mg QD PO
-Brain MRI wo kajal
-DVT prophylaxis.
�
I reviewed all radiology and labs along with past medical records pertinent to current medical problems.� Total time spent�35 minutes
�
Thank you for allowing us to participate in the care of this patient. We will continue to follow. Please do not hesitate to contact us with any questions or concerns.
Objective Data
Vital Signs
Temp Pulse Resp BP Pulse Ox
36.5 C 77 21 157/69 97
11/05/23 03:32 11/05/23 06:02 11/05/23 06:00 11/05/23 06:02 11/05/23 06:00
Lab Results
11/05/23 03:51
11/05/23 03:51
PT Cancelled 11/03/23 10:18
INR Cancelled 11/03/23 10:18
APTT Cancelled 11/03/23 10:18
Sodium 145 mmol/L (135-145) 11/05/23 03:51
Potassium 3.5 mmol/L (3.5-5.1) 11/05/23 03:51
BUN 23 mg/dl (9-20) H 11/05/23 03:51
Glucose 163 mg/dl (70-99) H 11/05/23 03:51
Calcium 8.9 mg/dl (8.4-10.2) 11/05/23 03:51
Wos-K-Worqpxiqyie Pept 94428 pg/ml 11/03/23 05:45
Vitamin B12 529 pg/ml (239-931) 11/02/23 16:40
Patient Allergies
clopidogrel Allergy (Verified 11/01/23 21:55)
Unknown
lisinopril Allergy (Verified 11/01/23 21:55)
Unknown
spironolactone Allergy (Verified 11/01/23 21:55)
Unknown
[2023-11-05] MEDS: SANTYL OINTMENT 1 APPLIC TOPICAL (12:38)
[2023-11-05 12:46] LABS: Glucose - Point of Care 129 mg/dl (70-99)
--- NOTE | 2023-11-05 14:02 | PTOTSP ---
Speech Therapy
Presentation: patient was oriented to self and location. Patient's speech appeared to be dysarthric characterized by imprecise consonant production.
Swallowing Function: ACCESSIONER trialed ice chips, thin liquids, puree, soft solids, and regular consistency solids in which patient appeared to tolerate all of the presentations as he did not exhibit any overt clinical s/sx of aspiration. Patient's RR and
SpO2 remained WNL during session. Patient's vocal quality did not alter during the session (during and after PO trials). Patient's swallowing initiation was timely and adequate. Given the above information, recommend diet advancement to regular
consistency solids and thin liquids.
Recommendations:
1) Trial of regular consistency solids and thin liquids
2) Standard aspiration precautions
3) Medications as tolerated
4) PO only when patient is alert and cooperative
5) Consider assistance with PO for the first few meals to ensure tolerance and safe pace
Plan: ACCESSIONER will continue to follow; pending hospitalization.
--- NOTE | 2023-11-05 14:03 | PTCARENOTE ---
Pt is ordiented to person place and time, but having confused conversation. Denies pain. No complaints offered. Fighting with daughter. Support offered.
--- NOTE | 2023-11-05 16:00 | PTCARENOTE ---
No changes in assessment. Pt remains awake and alert. Follows commands. Confused conversation at times. Denies pain. No distress. Care ongoing.
[2023-11-05 16:56] LABS: Glucose - Point of Care 206 mg/dl (70-99)
[2023-11-05] MEDS: NOVOLOG FLEXPEN-LOW RESISTANCE 2 UNITS SC (17:15)
[2023-11-05] MEDS: FLOMAX 0.400000000000000022 MG PO (17:17)
--- NOTE | 2023-11-05 18:00 | PTCARENOTE ---
Pt. arrived to unit via bed from ICU, no c/o pain at this time. Pt. VSS, dinner tray ordered by this nurse. Pt. resting in bed comfortably at this time. Will pass on to oncoming shift nurse.
[2023-11-05] MEDS: 0.45%NACL IV (18:17)
[2023-11-05 19:10] LABS: Glucose - Point of Care 123 mg/dl (70-99)
[2023-11-05 21:33] LABS: Glucose - Point of Care 173 mg/dl (70-99)
[2023-11-06] MEDS: ZOSYN 50 IV ×2 (02:45→08:18)
[2023-11-06 03:49] VITALS: BP 134/73
[2023-11-06] MEDS: LOPRESSOR 5 MG IV ×2 (05:27→12:08)
[2023-11-06 06:00] VITALS: BMI 22.9
[2023-11-06 06:40] LABS: Hematocrit 34.3 % (39.0-52.0); Hemoglobin 11.1 g/dL (13.0-18.0); Mean Corp Hgb Conc. 32.4 g/dL (33.0-37.0); Mean Corpuscular Hgb 28.7 pg (27.0-31.0); Mean Corpuscular Volume 88.6 fL (80.0-94.0); Mean Platelet Volume 10.1 fL (7.4-10.4); Platelet Count 250 10^3/uL (130-400); Red Blood Cell Count 3.87 10^6/uL (4.70-6.10); Red Cell Dist. Width 14.7 % (11.5-14.5); White Blood Cell Count 6.1 10^3/uL (4.8-10.8)
[2023-11-06 06:47] LABS: Lactic Acid 1.1 mmol/L (0.7-2.0)
[2023-11-06 06:52] LABS: Ammonia < 9 umol/L (9-30)
[2023-11-06 07:02] LABS: ALT (SGPT) 18 U/L (0-50); AST (SGOT) 39 U/L (17-59); Albumin 3.1 g/dl (3.5-5.0); Alkaline Phosphatase 123 U/L (38-126); Blood Urea Nitrogen 13 mg/dl (9-20); Calcium 8.4 mg/dl (8.4-10.2); Carbon Dioxide 24 mmol/L (22-30); Chloride 108 mmol/L (98-107); Estimated Creatinine Clearance 63 ml/min; Glucose 130 mg/dl (70-99); Magnesium 1.4 mg/dl (1.6-2.3); Potassium 3.2 mmol/L (3.5-5.1); Sodium 139 mmol/L (135-145); Total Bilirubin 0.6 mg/dl (0.2-1.3); Total Protein 6.3 g/dl (6.3-8.2); eGFR > 60.00
[2023-11-06 07:20] LABS: Glucose - Point of Care 169 mg/dl (70-99)
[2023-11-06 07:23] VITALS: BP 139/73
[2023-11-06] MEDS: NOVOLOG FLEXPEN-LOW RESISTANCE 1 UNITS SC (08:16)
[2023-11-06] MEDS: HEPARIN 5000 UNITS SC ×3 (08:17→23:53)
[2023-11-06] MEDS: ZINC OXIDE OINTMENT 1 APPLIC TOPICAL ×2 (08:18→20:24)
[2023-11-06] MEDS: SANTYL OINTMENT 1 APPLIC TOPICAL (08:19)
[2023-11-06] MEDS: KCL 270 MEQ IV (09:35)
[2023-11-06 11:11] VITALS: BP 155/86
[2023-11-06 11:49] LABS: Glucose - Point of Care 220 mg/dl (70-99)
[2023-11-06] MEDS: NOVOLOG FLEXPEN-LOW RESISTANCE 2 UNITS SC ×2 (12:08→17:53)
--- NOTE | 2023-11-06 12:28 | W.PN.ID1 ---
Date of Service
Date of Service: November 06, 2023
Today's Communication
D/C antibiotics and observe
Assessment / Plan
Acute encephalopathy of unclear etiology
Episode of fever
Pyuria; ?complicated UTI
CHF
DM
Ischemic cardiomyopathy
Anxiety/depression
Hx UTI
Hep C
PVD
Recommendations:
At present, no evidence of meningitis on exam. Etiology of encephalopathy remains cryptic, although may have been TME
MRI negative.
White count has normalized.
No fevers
Cultures negative.
Discontinue further antibiotics and observe closely.
����������������������������������������������������������
Chief Complaint
-: Other (Encephalopathy)
Subjective / Review of Systems
Patient seen and examined. Denies complaints at present.
Review of Systems: No Fever and No Chills
Vital Signs / Physical Exam
Vital Signs
Vital Signs
Temp Pulse Resp BP Pulse Ox
97.9 F 105 18 155/86 97
11/06/23 11:11 11/06/23 12:08 11/06/23 11:11 11/06/23 12:08 11/06/23 11:11
Physical Exam
Constitutional: Comfortable, Chronically Ill and Non-toxic
Eyes: Sclera Anicteric
Cardiovascular: S1/S2; Negative S3/S4
Pulmonary: Non Labored
Extremities: Edema; Negative Erythema
Neurological: Awake and Alert
Psychological: Calm; Negative Agitated
Objective Data
Lab Data
Lab Results
11/06/23 06:25
11/06/23 06:25
PT Cancelled 11/03/23 10:18
INR Cancelled 11/03/23 10:18
APTT Cancelled 11/03/23 10:18
Estimated Creat Clear 63 ml/min 02/18/24 06:25
Lactic Acid 1.1 mmol/L (0.7-2.0) 11/06/23 06:25
Total Bilirubin 0.6 mg/dl (0.2-1.3) 11/06/23 06:25
AST 39 U/L (17-59) 11/06/23 06:25
ALT 18 U/L (0-50) 11/06/23 06:25
Alkaline Phosphatase 123 U/L (38-126) 11/06/23 06:25
Most recent labs reviewed.
Micro Results:
11/02/23 00:35 Blood Culture - Preliminary
Blood/Venous No Growth in 4 days- Final report to follow
11/02/23 00:32 Blood Culture - Preliminary
Blood/Venous No Growth in 4 days- Final report to follow
11/02/23 00:06 Urine Culture - Final
Urine Yeast
11/02/23 08:36 MRSA Screen - Final
Nose No Methicillin Resistant Staphylococcus aureus isolated.
11/02/23 00:06 Legionella Urinary Antigen - Final
Urine Negative for Legionella pneumophila Serogroup 1 antigen.
A negative result does not rule out the possiblity of
Legionella infection due to other serogroups or species of
Legionella. Clinical correlation is recommended.
Streptococcus pneumoniae Antigen (M - Final
Negative for Streptococcus pneumoniae antigen.
A negative result does not exclude infection with
Streptococcus pneumoniae. Clinical correlation is
recommended.
11/02/23 00:09 Influenza Types A & B (ESPERANZA) - Final
Nasal Swab Negative for Influenza A & B, NAAT
Negative results must be combined with clinical observations
and patient history.
Nucleic Acid Amplification test (NAAT)performed on the
Apofore platform.
Imaging:
11/03/2023 CXR (portable): Parenchymal opacity is noted within the left lower lung, improved from prior exam, with pneumonia versus atelectasis on the differential.
11/01/2023 CT head without contrast: No acute intracranial abnormalities. A small old infarct is again seen in the left centrum semiovale.
--- NOTE | 2023-11-06 13:14 | W.PN.HOSP.TC ---
Addendum entered and electronically signed by Sandy Branch MD 11/06/23 15:17:
Patient continued to retain urine after Leggett catheter was removed--Leggett catheter to be reinserted for urinary retention--[facility] Leggett [facility] and trial of void there--continue Flomax
Original Note:
Today's Communication/Plan
-
hopeful d/c back to NH in AM
Assessment / Plan
Assessment / Plan
pt is a 73 year old male
Acute metabolic encephalopathy vs delirium (more likely) initially thought from UTI or pna (not hypoxic), WBC WNL, antibiotics stopped by ID, cultures negative--CT head with old stroke--ammonia < 9, TSH WNL--appreciate psychiatry and neurology-- MRI
without acute abnormalities--resolved--likely medication induced--stop bupropion, paxil at discharge
Sepsis with unclear source, possible HCAP with unknown organism vs UTI--stopped cefepime as can cause MS changes-- zosyn/vanco stopped--blood culture/urine culture/Covid/flu/legionella/Strep pneumonia all negative--lactic acid WNL--apprec ID,
patient had history of infection in his left leg requiring interventional radiology aspiration although cultures apparently were negative per the patient's daughter--all resolved without source
Alk phos elevation--not clinically significant
Chronic hep C
Hx of CVA
chronic ambulatory dysfunction
Anxiety/depression
chronic HFrEF/Ischemic CMP--cannot tolerate oral meds at this time--IV as able--NPO--proBNP is 10,100 likely iatrogenic induced from IV fluids as he is unable to take anything by mouth at this time--once transferred to ICU, consider stopping IV
fluids and placing small bore feeding tube and starting tube feeding for nutrition
DM type 2--insulin low dose
CODE STATUS--patient was [facility] as [facility]DNI [facility] per [facility] paperwork, however I spoke with the patient's daughter this morning and she stated that as the patient has gotten older he has changed his mind and if something reversible is
possible he would like to be resuscitated--therefore I will change his CODE STATUS to FULL CODE at this time
His daughter stated that he has been normal, walking, talking as most recently as Miri--but this is a change for him--he has been hospitalized at the [facility] which the daughter paid to transport him there since they know him well--apparently
extensive workup at the [facility] was negative
DVT ppx hep
Anticipated Discharge: Within 24 hours
Subjective/Interval History
-
Date of Service: November 06, 2023
pt wide awake, conversant--wanted to go back to [place] today
Objective Data
-
Labs:
Laboratory Results
11/06/23
06:25
WBC 6.1
Hgb 11.1 L
Hct 34.3 L
Plt Count 250
Sodium 139
Potassium 3.2 L
Chloride 108 H
Carbon Dioxide 24
BUN 13
Creatinine 1.2
Glucose 130 H
Calcium 8.4
Total Bilirubin 0.6
AST 39
ALT 18
Alkaline Phosphatase 123
Vital Signs:
max temp for 24 hours
11/05/23
23:35
Temp 98.7 F
Vital Signs
Temp Pulse Resp BP Pulse Ox
97.9 F 105 18 155/86 97
11/06/23 11:11 11/06/23 12:08 11/06/23 11:11 11/06/23 12:08 11/06/23 11:11
I&O
11/05/23 11/06/23 11/07/23
06:59 06:59 06:59
Intake Total 1850 / 1929 1554 / 1554
Output Total 1685 / 1685 1200 / 1200
Balance 165 / 244 354 / 354
Review of Systems
-
All other systems: Reviewed and negative
Physical Exam
-
General: Well Developed, Well Nourished and No Apparent Distress
HEENT: Normocephalic and Atraumatic
Respiratory: Clear to Auscultation; Negative Wheezes or Rhonchi
Cardiac: Regular Rhythm and S1/S2; Negative Murmur
GI: Soft, Nontender, Nondistended and Normal Bowel Sounds
Musculoskeletal: No Clubbing, No Cyanosis and No Edema
Neuro: Awake
[2023-11-06 15:30] VITALS: BP 156/71
--- NOTE | 2023-11-06 16:56 | PTCARENOTE ---
Pt. daughter,Earnestine, called this nurse for an update. Daughter very upset to hear the plan for the pt. to be sent back to [facility] tomorrow and said, 'someone needs to call me and he is not to be sent back there before someone speaks to me
first.' This nurse messaged CM Jes Clarke via tiger text, who will make the CM that is scheduled for tomorrow aware.
[2023-11-06] MEDS: LOPRESSOR 25 MG PO ×2 (17:03→23:54)
[2023-11-06] MEDS: FLOMAX 0.400000000000000022 MG PO (17:04)
[2023-11-06] MEDS: ROBITUSSIN DM 10 ML PO (17:04)
[2023-11-06 17:53] LABS: Glucose - Point of Care 214 mg/dl (70-99)
[2023-11-06 19:35] VITALS: BP 168/87
[2023-11-06] MEDS: ENTRESTO 24 MG/26 MG 1 TAB PO (20:23)
[2023-11-06 21:18] LABS: Glucose - Point of Care 180 mg/dl (70-99)
[2023-11-06] MEDS: LIPITOR 80 MG PO (21:19)
[2023-11-06 23:37] VITALS: BP 154/85
[2023-11-07 03:28] VITALS: BP 128/67
[2023-11-07] MEDS: LOPRESSOR 25 MG PO ×2 (05:46→14:11)
[2023-11-07 06:00] VITALS: BMI 23.1
[2023-11-07 07:45] VITALS: BP 140/92
[2023-11-07 07:46] LABS: Glucose - Point of Care 184 mg/dl (70-99)
[2023-11-07 08:09] LABS: Hemoglobin 11.9 g/dL (13.0-18.0); Mean Corp Hgb Conc. 33.1 g/dL (33.0-37.0); Mean Corpuscular Hgb 29.1 pg (27.0-31.0); Mean Platelet Volume 10.3 fL (7.4-10.4); Platelet Count 267 10^3/uL (130-400); Red Blood Cell Count 4.09 10^6/uL (4.70-6.10); Red Cell Dist. Width 14.3 % (11.5-14.5); White Blood Cell Count 5.7 10^3/uL (4.8-10.8)
[2023-11-07 09:16] LABS: Blood Urea Nitrogen 8 mg/dl (9-20); Calcium 8.7 mg/dl (8.4-10.2); Carbon Dioxide 22 mmol/L (22-30); Chloride 103 mmol/L (98-107); Estimated Creatinine Clearance 84 ml/min; Glucose 194 mg/dl (70-99); Magnesium 1.4 mg/dl (1.6-2.3); Potassium 3.5 mmol/L (3.5-5.1); Sodium 138 mmol/L (135-145); eGFR > 60.00
--- NOTE | 2023-11-07 09:17 | PTOTSP ---
ST Follow-Up
Pt presents with fairy functional oral pharyngeal parameters. Pt would benefit from TITLE VEHICLE SERVICE ATTENDANT follow-up given new onset baseline cough, 1x cough event with PO, and no documented respiratory concerns upon admission.
Recommendations:
- Continue with REGULAR SOLIDS and THIN LIQUIDS
- Meds with liquids as tolerated
- General aspiration precautions - upright during all PO
- TITLE VEHICLE SERVICE ATTENDANT to continue to follow.
[2023-11-07] MEDS: NOVOLOG FLEXPEN-LOW RESISTANCE 1 UNITS SC (09:51)
[2023-11-07] MEDS: ENTRESTO 24 MG/26 MG 1 TAB PO (09:52)
[2023-11-07] MEDS: HEPARIN 5000 UNITS SC (09:53)
[2023-11-07] MEDS: ZINC OXIDE OINTMENT 1 APPLIC TOPICAL (09:54)
[2023-11-07] MEDS: SANTYL OINTMENT 1 APPLIC TOPICAL (09:54)
--- NOTE | 2023-11-07 11:03 | CM ---
[facility]07/23 15[facility]36:
Further discussion with dtr/Earnestine
Notes concerned that cognition not back at baseline
Dtr notes she is pleased with care at [facility] and is in agreement with return to SNF once medically appropriate
Does note concern that SNF/[facility] not able to handle confused patients citing discussion with pt's SNF nurse prior to admission
Educated on care needs that can be provided at SNF, including confusion without behaviors
Discussion with [facility]/SNF admissions, confirms pt appropriate and clinically accepted back on dc
Addendum entered by [facility] 11/07/23 13:36:
Multiple telephone calls with daughter/Earnestine
Tearful and concern noted with ongoing confusion and plan for dc
Outreach to Dr Walker : regarding call request with daughter
Risk info also provided to daughter
IMM explained in detail over phone- emailed copy per her request to [email or web address]
Medicare discharge appeal has been filed with [employer] by daughter case# [id number]
Copy of IMM and DND left bedside per her request
Update to [place]/[facility] admissions
Original Note:
CM reviewed pt with Dr Walker and pt ready for dc
CM confirmed SNF bed return with admissions/[facility]
Updated clinicals sent via [facility] per her request
VM left for dtr with update- reviewed IMM verbally, requested call back
Medical necessity and transport form on chart
BLS arranged through [facility]- 1400 pickup
Discharge Disposition- return [facility] via [facility]S [address] leaf size picker
Phone- [phone] 2nd floor Fax- [phone]
[2023-11-07 11:32] LABS: Glucose - Point of Care 254 mg/dl (70-99)
[2023-11-07 11:35] VITALS: BP 119/61
--- NOTE | 2023-11-07 11:51 | W.PN.HOSP.TC ---
Addendum entered and electronically signed by Calvin Walker MD 11/07/23 17:01:
Patient anxious and wanting to leave [facility].
Not in a position to be discharged with ongoing placement issues.
Discussed with daughter in agreement providing small dose medication
Ordering 1 mg risperidone to be given sublingually
Original Note:
Today's Communication/Plan
-
discharge planning
Assessment / Plan
Assessment / Plan
Acute toxic metabolic encephalopathy - Improved
Possible underlying cognitive changes/Mild dementia?
-Initial concern of patient possibly having UTI/pneumonia, has been treated by short course of antibiotics and has stopped at this point, ID evaluated.
-CT head showing previous old CVA.
-MRI brain did not show any new abnormalities.
-No concern for ongoing meningitis.
-TSH/ammonia/B12 level within normal limits.
-EEG showing moderate to severe generalized slowing indicating diffuse cerebral dysfunction, nonspecific in terms of etiology
-Neurology and psychiatry have evaluated patient.
-Patient has been taken off of Paxil/bupropion. avoid any sedative medication
-Residual confusion possibly related to mild cognitive impairment or slow improving encephalopathic changes , can not confirm in one visit, will need to f/u with neuropsychiatry outpatient basis. Patient remains pleasant and cooperative appropriate
for SNF level care.
Sepsis ruled out
-Initial concern of UTI/pneumonia at admission, was on vancomycin and Zosyn.
-Blood culture/urine culture/COVID/flu/step pneumonia everything negative
-monitor off abx.
Hypomagnesemia
-replace with 2g Mag.
Chronic hepatitis C
Hx of CVA
chronic ambulatory dysfunction
Anxiety/depression
DM type 2--insulin low dose
Code status - full code
DVT PPX - subq heparin
11/07 care plan discussed with patient daughter, who is upset about discharge planning. Daughter declining patient to be transferred to [facility] as they have told her that they can not take care of him. All extensive workup as mentioned above
has been negative and patient has been pleasant and cooperative. Patient possibly have component of residual encephalopathy versus mild dementia and will require continued supportive care and may require longer time to recover. Patient undoubtedly
remain at risk for repeat acute encephalopathy episodes if any further insults to neurology system . Daughter have voiced her disapproval of not able to find a diagnosis for her father. Daughter is planning to appeal discharge.
Total time spent : 53 mins .
Anticipated Discharge: Today
Subjective/Interval History
-
Date of Service: November 07, 2023
patient is pleasantly and communicating appropriately at this point
afebrile overnight
Objective Data
-
Labs:
Laboratory Results
11/07/23
07:42
WBC 5.7
Hgb 11.9 L
Hct 36.0 L
Plt Count 267
Sodium 138
Potassium 3.5
Chloride 103
Carbon Dioxide 22
BUN 8 L
Creatinine 0.9
Glucose 194 H
Calcium 8.7
Vital Signs:
Vital Signs
Temp Pulse Resp BP Pulse Ox
98.8 F 89 20 140/92 100
11/07/23 07:45 11/07/23 09:52 11/07/23 07:45 11/07/23 09:52 11/07/23 07:45
I&O
11/06/23 11/07/23 11/08/23
06:59 06:59 06:59
Intake Total 1554 / 1554 960 / 960
Output Total 1200 / 1200 1700 / 1700
Balance 354 / 354 -740 / -740
Review of Systems
-
Respiratory: Reports No Symptoms
Cardiac: Reports No Symptoms
Abdomen/GI: Reports No Symptoms
Physical Exam
-
General: No Apparent Distress
HEENT: Negative Oxygen
Respiratory: Clear to Auscultation; Negative Wheezes
Cardiac: Regular Rhythm and S1/S2; Negative Murmur
GI: Soft, Nontender and Nondistended
Musculoskeletal: No Edema
Neuro: Awake and No Motor Deficits
Psych: Calm
[2023-11-07] MEDS: MAGNESIUM SULFATE 50 IV (12:13)
--- NOTE | 2023-11-07 13:00 | W.PN.ID1 ---
Date of Service
Date of Service: November 07, 2023
Today's Communication
Sign off.
Assessment / Plan
Acute encephalopathy of unclear etiology
- appears resolved
Episode of fever
Pyuria; ?complicated UTI
CHF
DM
Ischemic cardiomyopathy
Anxiety/depression
Hx UTI
Hep C
PVD
Recommendations:
At present, no evidence of meningitis on exam. Etiology of encephalopathy remains cryptic, although may have been TME
MRI negative.
White count has normalized.
No fevers
Cultures negative.
Appears to be doing well off antibiotic therapy.
Little more to offer from an Infectious Diseases standpoint.
Will see again at your request.
����������������������������������������������������������
Chief Complaint
-: Other (Encephalopathy)
Subjective / Review of Systems
Review of Systems: No Fever, No Chills, Cough and No Chest Pain
Vital Signs / Physical Exam
Vital Signs
Vital Signs
Temp Pulse Resp BP Pulse Ox
98.1 F 96 18 119/61 99
11/07/23 11:35 11/07/23 11:35 11/07/23 11:35 11/07/23 11:35 11/07/23 11:35
Physical Exam
Constitutional: No Acute Distress, Comfortable and Non-toxic
Cardiovascular: S1/S2; Negative S3/S4
Pulmonary: Coarse and Non Labored
Gastrointestinal: Soft and Non Tender
Neurological: Awake and Alert
Psychological: Calm
Objective Data
Lab Data
Lab Results
11/07/23 07:42
11/07/23 07:42
PT Cancelled 11/03/23 10:18
INR Cancelled 11/03/23 10:18
APTT Cancelled 11/03/23 10:18
Estimated Creat Clear 84 ml/min 11/07/23 07:42
Lactic Acid 1.1 mmol/L (0.7-2.0) 11/06/23 06:25
Total Bilirubin 0.6 mg/dl (0.2-1.3) 11/06/23 06:25
AST 39 U/L (17-59) 11/06/23 06:25
ALT 18 U/L (0-50) 11/06/23 06:25
Alkaline Phosphatase 123 U/L (38-126) 11/06/23 06:25
Most recent labs reviewed.
Micro Results:
11/02/23 00:35 Blood Culture - Final
Blood/Venous No Growth - Final Report
11/02/23 00:32 Blood Culture - Final
Blood/Venous No Growth - Final Report
11/02/23 00:06 Urine Culture - Final
Urine Yeast
11/02/23 08:36 MRSA Screen - Final
Nose No Methicillin Resistant Staphylococcus aureus isolated.
11/02/23 00:06 Legionella Urinary Antigen - Final
Urine Negative for Legionella pneumophila Serogroup 1 antigen.
A negative result does not rule out the possiblity of
Legionella infection due to other serogroups or species of
Legionella. Clinical correlation is recommended.
Streptococcus pneumoniae Antigen (M - Final
Negative for Streptococcus pneumoniae antigen.
A negative result does not exclude infection with
Streptococcus pneumoniae. Clinical correlation is
recommended.
11/02/23 00:09 Influenza Types A & B (ESPERANZA) - Final
Nasal Swab Negative for Influenza A & B, NAAT
Negative results must be combined with clinical observations
and patient history.
Nucleic Acid Amplification test (NAAT)performed on the
[employer] platform.
Imaging:
11/03/2023 CXR (portable): Parenchymal opacity is noted within the left lower lung, improved from prior exam, with pneumonia versus atelectasis on the differential.
11/01/2023 CT head without contrast: No acute intracranial abnormalities. A small old infarct is again seen in the left centrum semiovale.
[2023-11-07] MEDS: NOVOLOG FLEXPEN-LOW RESISTANCE 3 UNITS SC (14:12)
[2023-11-07 15:40] VITALS: BP 137/79
--- NOTE | 2023-11-07 15:40 | W.PN.NEURO.1 ---
Today's Communication / Plan
-
-Continue existing statin and aspirin for secondary stroke prevention
-Outpatient neurology follow-up 4 to 6 weeks which he should consider neuropsychological testing and MOCA/MMSE
-Not recommending lumbar puncture or further brain imaging
Will sign off call with questions and concerns reconsult as needed
Neuro Assessment/Plan
Assessment
73-year-old male presenting the hospital with altered mental status.
Patient did have 1 fever of 102 here in hospital.
Infectious workup has proven negative negative for Legionella, influenza and COVID, negative blood cultures, unimpressive chest x-ray and was never hypoxic, urinalysis also negative.
Brain MRI shows a chronic left MCA ischemic stroke as well as moderate white matter ischemic microvascular disease bilaterally and hemispheres.
Seems to be improving mental status.
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
Most likely explanation is that transient fever and infection (unclear source) combined with the history of ischemic left MCA stroke clearly seen on brain MRI as well as the moderate ischemic white matter disease on brain MRI combined to produce a
toxic metabolic encephalopathy. Unclear on whether or not the patient had mild clinically silent cognitive impairment prior to this hospitalization, there does not seem to be any strong suggestion that he had dementia or significant memory or
cognitive impairment prior to hospitalization.
I am extremely doubtful that he had any type of [employer] infection whether bacterial or viral meningitis or encephalitis, he would have not had this could have a recovery this case.
Subjective/Objective
Subjective Data
Date of Service: November 07, 2023
Patient with no complaints today, denies headaches, discussed the old stroke, memory testing
Objective Data
Vital Signs
Temp Pulse Resp BP Pulse Ox
98.1 F 96 18 119/61 99
11/07/23 11:35 11/07/23 14:11 11/07/23 11:35 11/07/23 14:11 11/07/23 11:35
Lab Results
11/07/23 07:42
11/07/23 07:42
PT Cancelled 11/03/23 10:18
INR Cancelled 11/03/23 10:18
APTT Cancelled 11/03/23 10:18
Sodium 138 mmol/L (135-145) 11/07/23 07:42
Potassium 3.5 mmol/L (3.5-5.1) 11/07/23 07:42
BUN 8 mg/dl (9-20) L 11/07/23 07:42
Glucose 194 mg/dl (70-99) H 11/07/23 07:42
Calcium 8.7 mg/dl (8.4-10.2) 11/07/23 07:42
Omw-K-Psmmjmrmmsc Pept 22535 pg/ml 11/03/23 05:45
Vitamin B12 529 pg/ml (239-931) 11/02/23 16:40
Patient Allergies
clopidogrel Allergy (Verified 11/01/23 21:55)
Unknown
lisinopril Allergy (Verified 11/01/23 21:55)
Unknown
spironolactone Allergy (Verified 11/01/23 21:55)
Unknown
Review of Systems
-
History Source: Patient
All other systems: Reviewed and negative
Constitutional: No Symptoms
EENT: No Symptoms Reported
Respiratory: No Symptoms
Cardiac: No Symptoms
Abdomen/GI: No Symptoms
Genitourinary: No Symptoms
Musculoskeletal: No Symptoms
Skin: No Symptoms
Neuro: See existing Neuro Note
Endocrine: No Symptoms
Hematologic / Lymphatic: No Symptoms
Allergy / Immunology: No Symptoms
Physical Exam
-
General: Comfortable and Appears Stated Age
Eyes: No Ptosis
HEENT: Normocephalic and Atraumatic
Respiratory: Clear to Auscultation and No Dyspnea
Cardiac: Negative Murmur
GI: Normal Bowel Sounds, Soft and Non-tender
Skin: Unremarkable
Extremities: No Clubbing
Psych: Intact Judgement/Insight; Negative Confused
Extended Neurological Exam
Mood & Affect: Mood Unremarkable and Affect Unremarkable
Attention Span & Concentration: Awake, Alert, Interactive and Other (Serial 7 subtraction very good (93, 86, 79, 72 correct), names months of year backwards, knows presidents currently and goes back to [place] correctly, follows 3 step command, wide
awake and alert, covnersational)
Memory: Other (Memory recall 2/5 after 5 minutes)
Tremor: Hand Tremor Absent
Involuntary Movement: None
Speech: Negative Expressive Aphasia, Receptive Aphasia or Dysarthric
Cranial Nerve II: Left Eye: Pupillary Reactivity Unremarkable and Pupillary Size Unremarkable
Cranial Nerve II: Right Eye: Pupillary Reactivity Unremarkable and Pupillary Size Unremarkable
Cranial Nerves III, IV, : Extraocular Movement: Extraocular Movement Full in all Directions
Muscle Strength, Overall: Full Throughout
Muscle Bulk & Tone: Bulk Unremarkable
Pronator Drift: No Drift in Upper Extremities
Touch Sensation: Testing in Upper Extremities
Data Reviewed
-
CT Head: Report Reviewed and Image Reviewed
MRI Head: Report Reviewed and Image Reviewed
Labs: Report Reviewed
[2023-11-07 17:16] LABS: Glucose - Point of Care 226 mg/dl (70-99)
[2023-11-07] MEDS: LOPRESSOR PO ×2 (17:34→23:21)
[2023-11-07] MEDS: FLOMAX PO (17:34)
[2023-11-07] MEDS: HEPARIN SC ×2 (17:35→23:20)
[2023-11-07] MEDS: NOVOLOG FLEXPEN-LOW RESISTANCE SC (18:55)
[2023-11-07] MEDS: ZYPREXA 5 MG IM (19:42)
[2023-11-07] MEDS: STERILE WATER FOR INJECTION 2.10000000000000009 ML IM (19:43)
--- NOTE | 2023-11-07 19:54 | PTCARENOTE ---
Lanre tapia phone called staff stating patient was trying to get out of bed. Patient wanted to leave and became very agitated. Security called. Patient refused tele monitor. Patient given medication by day shift RN, see NOV.
[2023-11-07] MEDS: LIPITOR PO (20:36)
[2023-11-07] MEDS: ENTRESTO 24 MG/26 MG PO (20:36)
[2023-11-07] MEDS: ZINC OXIDE OINTMENT TOPICAL (20:36)
[2023-11-07 21:42] LABS: Glucose - Point of Care 289 mg/dl (70-99)
--- NOTE | 2023-11-07 21:42 | PTCARENOTE ---
Patient refusing all vital signs at this time. AAOx3. Was able to get blood sugar. Patient resting comfortably in bed with call anderson within reach.
[2023-11-08 05:25] VITALS: BMI 22.8
[2023-11-08] MEDS: LOPRESSOR PO ×2 (05:40→13:05)
--- NOTE | 2023-11-08 09:14 | W.PN.HOSP.TC ---
Today's Communication/Plan
-
continue discharge planning
Assessment / Plan
Assessment / Plan
Acute toxic metabolic encephalopathy - Improved
Possible underlying cognitive changes/Mild dementia?
-Initial concern of patient possibly having UTI/pneumonia, has been treated by short course of antibiotics and has stopped at this point, ID evaluated.
-CT head showing previous old CVA.
-MRI brain did not show any new abnormalities.
-No concern for ongoing meningitis.
-TSH/ammonia/B12 level within normal limits.
-EEG showing moderate to severe generalized slowing indicating diffuse cerebral dysfunction, nonspecific in terms of etiology
-Neurology and psychiatry have evaluated patient.
-Patient has been taken off of Paxil/bupropion. avoid any sedative medication
-Residual confusion possibly related to mild cognitive impairment or slow improving encephalopathic changes , can not confirm in one visit, will need to f/u with neuropsychiatry outpatient basis. Patient remains pleasant and cooperative appropriate
for SNF level care.
Sepsis ruled out
-Initial concern of UTI/pneumonia at admission, was on vancomycin and Zosyn.
-Blood culture/urine culture/COVID/flu/step pneumonia everything negative
-monitor off abx.
Hypomagnesemia
-replace with 2g Mag.
Chronic hepatitis C
Hx of CVA
chronic ambulatory dysfunction
Anxiety/depression
DM type 2--insulin low dose
Code status - full code
DVT PPX - subq heparin
11/07 care plan discussed with patient daughter, who is upset about discharge planning. Daughter declining patient to be transferred to [facility] as they have told her that they can not take care of him. All extensive workup as mentioned above
has been negative and patient has been pleasant and cooperative. Patient possibly have component of residual encephalopathy versus mild dementia and will require continued supportive care and may require longer time to recover. Patient undoubtedly
remain at risk for repeat acute encephalopathy episodes if any further insults to neurology system . Daughter have voiced her disapproval of not able to find a diagnosis for her father. Daughter is planning to appeal discharge.
11/08 Patient coherent and wanting to leave yesterday evening. Needed to be given small dose zyprexa to help agitation. Agitation obviously coming from not understanding the discharge issues as family have appealed it. Remains appropriate for SNF
level care as remains pleasant otherwise.
Anticipated Discharge: Today
Subjective/Interval History
-
Date of Service: November 08, 2023
patient sleeping comfortably in bed
last evening patient agitated and wanted to leave hospital
no other acute issues
Objective Data
-
Vital Signs:
Vital Signs
Temp Pulse Resp BP Pulse Ox
97.6 F 84 20 137/79 93
11/07/23 15:40 11/07/23 15:40 11/07/23 15:40 11/07/23 15:40 11/07/23 20:15
I&O
11/07/23 11/08/23 11/09/23
06:59 06:59 06:59
Intake Total 960 / 960 1380 / 1380
Output Total 1700 / 1700 1400 / 1400
Balance -740 / -740 -20 / -20
Physical Exam
-
General: Comfortable; Negative Respiratory Distress
HEENT: Negative Oxygen
Neuro: Negative Awake (Sleeping in bed)
[2023-11-08] MEDS: NOVOLOG FLEXPEN-LOW RESISTANCE SC ×2 (09:38→12:39)
[2023-11-08] MEDS: ZINC OXIDE OINTMENT TOPICAL (09:39)
[2023-11-08] MEDS: HEPARIN SC (09:39)
[2023-11-08] MEDS: ENTRESTO 24 MG/26 MG PO (09:39)
[2023-11-08] MEDS: SANTYL OINTMENT TOPICAL (09:39)
--- NOTE | 2023-11-08 11:17 | CM ---
CM received outcome from Sherine, agreed patient was stable for discharge, financial liability will begin 11/09 if not agreeable to discharge. CT spoke with patients daughter, Earnestine, in regards to determination of appeal. Earnestine reports she is
aware of the determination and is agreeable for her father to be discharged today. Ambulance transportation scheduled for 3:[address] updated Mariela, Admissions at [facility], aware of return and transportation time. CT will continue to follow
for discharge planning needs.
Plan; return to [facility] SNF
Phone- [phone] 2nd floor Fax- [phone]
[2023-11-08 14:00] VITALS: BP 137/85
[2023-11-08 14:00] LABS: Glucose - Point of Care 205 mg/dl (70-99)
[2023-11-08] MEDS: NOVOLOG FLEXPEN-LOW RESISTANCE 2 UNITS SC (14:33)
[2023-11-08 16:20] LABS: Syphilis/T. pallidum Ab Reflex Negative (Negative)
--- NOTE | 2023-11-08 18:17 | W.DCSUMMARY ---
Discharge Summary
Discharge Data
Date of Admission: 11/01/23
Date of Discharge: 11/08/23
-
Pending Results: No
Hospital Course
Discharging Physician : Dr Calvin Walker
Disposition : To home
Primary care physician : Dr Eligio Glass
Principal Discharge diagnosis :
Acute toxic metabolic encephalopathy of unclear origin
Chronic Discharge diagnosis :
Chronic hepatitis C
History of stroke
Chronic ambulatory dysfunction
Anxiety/depression
Insulin-dependent diabetes mellitus
Hospital Course :
Patient is 73-year-old male with above-mentioned past medical history was brought in from care home for worsening confusion. Until September 10 patient was in his usual state of health and at some point patient started to having new onset of
confusion. Patient was admitted to [facility] and was evaluated without clear etiology found. Patient was discharged to shelter facility for rehab. Unfortunately patient required readmission and other hospital versus [facility], details unclear
for recurrent encephalopathy issues. This admission patient was sent in again for worsening confusion. At admission there was concern of patient possibly having sepsis from urinary tract infection. Patient was started on broad-spectrum IV
antibiotics. Later blood cultures/urine cultures/COVID/flu/strep pneumonia test remain negative and after ID recommendation patient was taken off of antibiotics. Per patient confusion neurology was involved in care. Patient had a CT head at
admission did not show any acute abnormality. Patient TSH/B12/ammonia level were checked and were within normal limit. Patient had an EEG and no seizure activity was found although there was signs of diffuse cerebral dysfunction which was
nonspecific in terms of etiology. Psychiatry evaluated patient as well and patient was taken off of Paxil/bupropion/Zyprexa as this medication have agitation/confusion a side effect. Patient confusion improved slowly over next few days although
not completely resolved. No clear indication for lumbar puncture has been discussed with neurology. MRI brain with contrast did not show any acute tonality. Cause of confusion remains unclear and patient would require supportive care. Physical
therapy evaluation showed patient appropriate for SNF rehab. Patient to follow-up with neuropsychiatry outpatient basis for continued evaluation.
Important imaging findings :
None
Procedure findings :
None
Discharge Plan
-
Patient Disposition: [facility]/SNF
Discharge Diagnosis/Procedures: Acute metabolic encephalopathy versus delirium, sepsis with no clear source, chronic hepatitis C, history of stroke, chronic amatory dysfunction, anxiety/depression, chronic systolic congestive heart failure without
exacerbation, type 2 diabetes mellitus, urinary retention
Condition: Good
Diet: Diabetic, Carb Controlled
Activity: As tolerated
Driving Restrictions: No driving
Bathing Restrictions: None
Activity Restrictions/Additional Instructions:
Keep Leggett catheter at discharge--trial of voiding will need to be done at the care home. Patient should follow up with Urology office (number below) if fails voiding trial second time.
Please follow up with [facility] neurology or Dr Dyer.
Referrals:
Celina Dyer MD [Active] - in two to four weeks
Eligio Galss MD [Family Provider] - in less than 1 week
Raul Riggs MD [Active] -
Prescriptions:
New
bupropion HCl [Wellbutrin XL] 150 mg tablet extended release 24 hr
150 mg PO DAILY Qty: 30 0RF
paroxetine HCl [Paxil] 30 mg tablet
30 mg PO DAILY Qty: 30 0RF
Continued
atorvastatin 80 mg Tablet
80 mg PO HS
melatonin 3 mg Tablet
6 mg PO HS
magnesium hydroxide [Milk of Magnesia] 400 mg/5 mL Suspension
30 ml PO DAILY PRN (Reason: if no bm x 3 days)
tamsulosin 0.4 mg Capsule
0.4 mg PO QPM
bisacodyl [Dulcolax (bisacodyl)] 10 mg Suppository
10 mg CA DAILY PRN (Reason: if no bm in 24 hrs after MOM)
Fleet Enema 19-7 gram/118 mL Enema
118 ml CA DAILY PRN (Reason: if no bm in 24hrs after bisacodyl)
aspirin 81 mg Tablet,Chewable
81 mg PO DAILY
Santyl 250 unit/gram Ointment
1 applic TOPICAL DAILY PRN (Reason: soilage)
Rx Instructions:
apply to left thigh abscess
Santyl 250 unit/gram Ointment
1 applic TOPICAL DAILY
Rx Instructions:
apply to left thigh abscess. Cleanse with saline, apply santyl & calcium alginate and cover with bordered dressing
enoxaparin 40 mg/0.4 mL Syringe
40 mg SC DAILY
insulin aspart U-100 100 unit/mL (3 mL) Insulin Pen
2 - 10 sliding scale dose SC ACHS
Rx Instructions:
Sliding Scale: if 151-200= 2; 201-250= 4; 251-300= 6; 301-350= 8; 351-400= 10
povidone-iodine [Betadine] 10 % Solution
1 applic TOPICAL DAILY
Rx Instructions:
apply to R plantar foot DM for wound care cleanse with saline, paint with betadine, and leave open to air
povidone-iodine [Betadine] 10 % Solution
1 applic TOPICAL DAILY PRN (Reason: soilage)
Rx Instructions:
apply to R plantar foot
metoprolol tartrate 25 mg Tablet
25 mg PO Q6H
Rx Instructions:
hold for SBP<100 and/or HR<60
menthol-zinc oxide [Moisture Barrier Ointment] 0.44-20.6 % Ointment
1 applic TOPICAL BID
Rx Instructions:
apply to b/l buttocks
Entresto 24-26 mg Tablet
1 tab PO BID
Rx Instructions:
hold for SBP<110
magnesium oxide 400 mg magnesium Tablet
800 mg PO DAILY
insulin glargine-yfgn 100 unit/mL (3 mL) Insulin Pen
7 unit SC HS
Discontinued
olanzapine [Zyprexa] 5 mg Tablet
5 mg PO HS
paroxetine HCl 30 mg Tablet
60 mg PO DAILY
bupropion HCl 150 mg Tablet Extended Release 24 Hr
450 mg PO DAILY
Discharge Orders:
Discharge Patient (As Directed); Ordered 11/07/23
Ordered By: Calvin Walker
Discharge Date and Time
Discharge Date/Time: 11/08/23 16:34
== END 2023-11-08 16:34 | DRG 70 ==
LOC: 4 EAST ACU 23:46
PROVIDERS: Clinical Nurse Specialist Family Health; Internal Medicine; ADMITTING PHYSICIAN Internal Medicine; ATTENDING PHYSICIAN Hospitalist; CONSULT PHYSICIAN Internal Medicine Critical Care Medicine; CONSULT PHYSICIAN Internal Medicine Infectious Disease; CONSULT PHYSICIAN Psychiatry & Neurology Neurology; CONSULT PHYSICIAN Psychiatry & Neurology Psychiatry; EMERGENCY PHYSICIAN Student in an Organized Health Care Education/Training Program; FAMILY PHYSICIAN Internal Medicine
DX: G93.41 Metabolic encephalopathy (principal); J18.9 Pneumonia, unspecified organism; B37.49 Other urogenital candidiasis; I50.22 Chronic systolic (congestive) heart failure; N17.9 Acute kidney failure, unspecified; G92.8 Other toxic encephalopathy; B18.2 Chronic viral hepatitis C; F43.10 Post-traumatic stress disorder, unspecified; F32.9 Major depressive disorder, single episode, unspecified; E11.9 Type 2 diabetes mellitus without complications; I11.0 Hypertensive heart disease with heart failure; Z66 Do not resuscitate; I25.5 Ischemic cardiomyopathy; E83.42 Hypomagnesemia; Z86.73 Personal history of transient ischemic attack (TIA), and cerebral infarction without residual deficits
CPT/HCPCS: 36600; 70450; 70551; 71045; 71046; 80048; 80053; 80202; 81003; 81015; 82140; 82550; 82607; 82746; 82805; 82962; 83036; 83605; 83735; 83880; 84145; 84443; 85025; 85027; 86780; 87040; 87070; 87086; 87449; 87502; 87811; 87899; 92526; 92610; 93005; 95816; 96360; 96361; 97116; 97163; 97167; 99285; J2358

== ENCOUNTER 2023-11-29 09:39 | Inpatient (IN) | payer MEDICARE, OTHER, SELFPAY ==
[2023-11-25] VITALS (18 sets, daily range): BP systolic 74–140; BP diastolic 52–87; PULSE 91–93; BMI 23.2; BMI 22.5
[2023-11-25 10:30] LABS: Urine Albumin Trace (Neg - Trace); Urine Bilirubin Negative (Negative); Urine Character Clear (Clear); Urine Color Yellow; Urine Glucose 3+ (Negative); Urine Ketone Negative (Negative); Urine Leukocyte 1+ (Negative); Urine Nitrite Negative (Negative); Urine Occult Blood 1+ (Negative); Urine Urobilinogen Negative (Neg - 1+)
--- NOTE | 2023-11-25 10:31 | EDRN ---
orthostatic vital signs were performed however they were not performed while the pt stood, the pt is 'too dizzy to stand', provider notified, will continue to monitor the pt closely
[2023-11-25 10:32] LABS: % Basophils 0.7 % (0-2); % Eosinophils 1.4 % (0-6); % Immature Granulocytes 0.4 % (0-0.5); % Lymphocytes 7.4 % (20.5-51.1); % Monocytes 9.6 % (1.7-9.3); % Neutrophils 80.5 % (42.2-75.2); Absolute Basophils 0.1 10^3/uL (0-0.2); Absolute Eosinophils 0.2 10^3/uL (0-0.7); Absolute Lymphocytes 0.8 10^3/uL (1.2-3.4); Absolute Neutrophils 8.5 10^3/uL (1.4-6.5); Hematocrit 35.6 % (39.0-52.0); Hemoglobin 11.6 g/dL (13.0-18.0); Mean Corp Hgb Conc. 32.6 g/dL (33.0-37.0); Mean Corpuscular Hgb 28.4 pg (27.0-31.0); Mean Platelet Volume 9.8 fL (7.4-10.4); Nucleated Red Blood Cells % 0 % (-); Platelet Count 290 10^3/uL (130-400); Red Blood Cell Count 4.09 10^6/uL (4.70-6.10); Red Cell Dist. Width 14.1 % (11.5-14.5); White Blood Cell Count 10.5 10^3/uL (4.8-10.8)
[2023-11-25] MEDS: NSS 1000 IV ×2 (10:38→17:22)
[2023-11-25 10:50] LABS: Urine Mucus Few
[2023-11-25 10:50] LABS: COVID-19 Antigen Negative (Negative)
[2023-11-25 10:51] LABS: Urine Squamous Cell 0-2 /LPF (Few); Urine Urothelial Cell 0-2 /LPF (FEW)
[2023-11-25 10:52] LABS: Urine Amorphous Seen; Urine Bacteria Many (Negative)
[2023-11-25 10:56] LABS: NT-proBNP 1640 pg/ml; Troponin I < 0.012 ng/ml
[2023-11-25 10:59] LABS: ALT (SGPT) 20 U/L (0-50); AST (SGOT) 29 U/L (17-59); Albumin 3.7 g/dl (3.5-5.0); Alkaline Phosphatase 91 U/L (38-126); Blood Urea Nitrogen 27 mg/dl (9-20); Calcium 9.5 mg/dl (8.4-10.2); Carbon Dioxide 25 mmol/L (22-30); Chloride 98 mmol/L (98-107); Estimated Creatinine Clearance 71 ml/min; Glucose 268 mg/dl (70-99); Potassium 4.8 mmol/L (3.5-5.1); Sodium 134 mmol/L (135-145); Total Bilirubin 0.4 mg/dl (0.2-1.3); Total Protein 7.1 g/dl (6.3-8.2); eGFR > 60.00
--- NOTE | 2023-11-25 11:12 | ED.GENMED ---
History of Present Illness
General
Chief Complaint: Blood Pressure Problem
Source: patient
Exam Limitations: none
Time Seen by Provider: 11/25/23 10:28
Nursing documentation reviewed up to this point in time: agreed with
Travel History
Have you had any contact with someone who has COVID-19?: No
Do you have any symptoms of coronavirus? Fever > 100 degrees, chills, cough, shortness of breath, sore throat, loss of taste or smell, muscle aches, or headache?: No
History of Present Illness
History of Present Illness:
73-year-old male with a past medical history of CAD status post CABG (follows with cardiology at the [place]), CHF, diabetes who presents to the emergency room from [facility]; he presents via EMS for evaluation after syncopal event. Patient
says that he was doing physical therapy today and while he was standing there he suddenly passed out. He says that the therapist were able to catch him and keep him from falling or injuring himself. He says that he quickly regained consciousness
and felt generally well afterwards. There was no prodrome of dizziness or lightheadedness. He says he did not have any preceding chest pain, shortness of breath, palpitations and has not had any of the symptoms since. Denies any headache. No
nausea or vomiting. No abdominal or flank pain. He says he has had a mild 'cold' over the past few days with rhinorrhea and mild sore throat, cough. He denies any other complaints.
Past History
Past History
ED Past Medical History: CHF, NIDDM, Psychiatric (Depression, Anxiety) and Other (UTI, Cellulitis, Frequent falls, HeP C, PVD, Anemia, ischemic cardiomyopathy)
ED Past Surgical History: Cardiac (CABG, ) and Orthopedic (Amputation right toes)
Patient has exhibited threatening behavior?: No
Social History
Tobacco: Non-smoker
Alcohol: None
Living: longterm
Review of Systems
Review of Systems
All Other Systems: ROS reviewed and negative except as documented in HPI and ROS
Constitutional: Denies fever or chills
EENT: Reports sore throat and runny nose
Respiratory: Reports cough; Denies trouble breathing
Cardiac: Reports syncope; Denies chest pain or palpitations
ABD/GI: Denies abdominal pain, nausea or vomiting
: Denies dysuria, frequency or flank pain
Musculoskeletal: Denies neck pain or back pain
Neurological: Denies headache, weakness or numbness
Phy Exam
Physical Exam
Physical Exam:
General: Awake, alert; no acute distress
Head: Normocephalic, atraumatic
Eyes: Conjunctiva normal, pupils equal round reactive to light bilaterally
Throat: Airway intact, handling secretions
Neck: Trachea midline, supple without meningismus
Lungs: Clear to auscultation bilaterally, no wheezing, rales, rhonchi
Heart: Regular rate and rhythm, no murmurs, gallops, or rubs; midline scar from prior CABG
Abd: Soft, non distended, nontender with no palpable masses
Neuro: Cranial nerves grossly intact, speech fluid
Skin: no rash
Extremities: No edema in extremities, equal pulses in all extremities
Scores
Heart Failure Risk
Heart Failure Risk Score: Not Applicable
Heart Score for Chest Pain Patients
STEMI patient?: Not applicable
[place] Syncope Rule
Conjestive Heart Failure History: Yes
Hematocrit <30%: No
EKG Abnormal (New changes, non NSR on EKG/Monitor): No
Shortness of Breath Symptoms: No
Systolic BP <90 mmHg at Triage: No
Patient is high risk for syncope: Yes
Withdrawal Assessment of Alcohol
Withdrawal Assessment Completed?: Not applicable
Course
Orders/Labs/Results
Orders:
Orders
11/25/23 09:59
EKG [Electrocardiogram (*1)] Urgent
Reason for Study: Fatigue / Weakness
11/25/23 10:00
EKG- Treatment ONCE
11/25/23 10:19
COVID-19 Antigen Urgent
Source: Nasal Swab
Complete Blood Count/With Diff Urgent
Comprehensive Metabolic Panel Urgent
NT-proBNP Urgent
Comment: ADD ON
Troponin I Urgent
Influenza A+B Rapid Molecular Urgent
EMELYN Source: Nasal Swab
Specimen Description:
11/25/23 10:20
Add On- LAB Urgent
Tests Added?: Pro BNP
Urinalysis Reflex To Culture Urgent
Date Specimen was Collected: 11/25/23
Time Specimen was Collected: 10:19
Urine Microscopic Reflex Cult Urgent
Urine Culture Urgent
EMELYN Source: U
Specimen Description:
Date Specimen was Collected: 11/25/23
Time Specimen was Collected: 10:19
CXR2 [CR Chest - 2 Views ] Urgent
Comment:
Reason For Exam: cough
11/25/23 10:31
0.9% Sodium Chloride 1000 ml [Nss] 1,000 ml IV BOLUS
Abnormal Lab Results
11/25/23 11/25/23
10:19 10:20
RBC 4.09 L 10^6/uL
(4.70-6.10)
Hgb 11.6 L g/dL
(13.0-18.0)
Hct 35.6 L %
(39.0-52.0)
MCHC 32.6 L g/dL
(33.0-37.0)
Absolute Neuts (auto) 8.5 H 10^3/uL
(1.4-6.5)
Absolute Lymphs (auto) 0.8 L 10^3/uL
(1.2-3.4)
Absolute Monos (auto) 1.0 H 10^3/uL
(0.1-0.6)
Neutrophils % 80.5 H %
(42.2-75.2)
Lymphocytes % 7.4 L %
(20.5-51.1)
Monocytes % 9.6 H %
(1.7-9.3)
Sodium 134 L mmol/L
(135-145)
BUN 27 H mg/dl
(9-20)
Glucose 268 H mg/dl
(70-99)
Ur Occult Blood Reflex 1+ A
(Negative)
Leukocyte Esterase Rfl 1+ A
(Negative)
Urine RBC 3-6 A /HPF
(0-2)
Urine Bacteria (Reflex) Many A
(Negative)
Urine Glucose 3+ A
(Negative)
11/25/23 10:19
11/25/23 10:19
Vital Signs
Initial and Last Documented VS:
Initial Vital Signs
BP
137/65
11/25/23 09:58
Last Documented Vital Signs
Temp Pulse Resp BP Pulse Ox
36.8 C 93 22 136/67 99
11/25/23 10:04 11/25/23 12:00 11/25/23 10:04 11/25/23 12:00 11/25/23 11:30
MDM/Problems Addressed
Differential Diagnosis Includes:
Vasovagal syncope, orthostatic syncope, dehydration, anemia, electrolyte derangement, dysrhythmia; nothing in history or on exam to suggest acute IA, subarachnoid hemorrhage, ruptured AAA
MDM/Problems Addressed:
73-year-old male presents to the emergency room after a syncopal event while at PT. He was apparently noted to have transient drop in blood pressure. Normotensive on arrival, rest of vitals normal. Physical exam as above. Plan to place an IV
check labs including CBC and CMP. Will check EKG. He has had a cough and URI type symptoms we will swab for COVID and check a chest x-ray to rule out pneumonia. Will provide some fluids. Monitor closely reassess at the above.
EKG shows sinus rhythm, slightly prolonged QT interval at 472, some nonspecific T wave abnormalities. Patient had positive orthostatic vital signs�blood pressure dropped from 137/65 while supine to 78/55 while standing. Will reassess after fluids.
Initial labs reviewed CBC shows marginal anemia stable. CMP shows random glucose of 268�will recheck after hydration. He had a troponin sent in triage which was negative. COVID swab is negative, chest x-ray no pneumonia or other acute pathology.
Continue to monitor.
After IV fluids patient still markedly orthostatic with a blood pressure drop of 40-50 points with even just going from laying to sitting. May need more fluid but hesitant to provide additional bolus beyond 1 L with his known history of ischemic
cardiomyopathy and congestive heart failure. Will admit for continued management; discussed with hospitalist.
Chronic conditions affecting care:
CHF�higher risk for arrhythmia
*Radiology
Radiology exam reviewed: preliminary read by ED provider and radiology read reviewed
*Pulse Oximetry
Patient hypoxic: no
*EKG
Interpreted by ED Provider?: Yes
Heart Rate: 95
Rate: normal
Rhythm: sinus
[place]: normal axis
Interval: long QT
QRS Pattern: normal QRS
Ischemia: other (Nonspecific T wave abnormalities)
*Critical Care Note
Total Time (30-74mins, 75-104mins- exclusive of procedures): Not Applicable
Data Reviewed
Review of Other/Old Records Reveals: Labs and Records
Source: patient, records and ambulance crew
Patient Management
Discussion with other providers: Hospitalist (Discussed with hospitalist)
Escalation/DeEscalation of care consider admission/obs:
Admission indicated
ED Attending Note
-
Portions of this chart may have been created with voice recognition software.� Occasional wrong word or��sound alike� substitutions may have occurred due to the inherent limitations of voice recognition software.
Discharge Plan
Departure
Patient Disposition: Admit
Date of Disposition: 11/25/23
Time of Disposition: 13:12
Admit to doctor: Sheu
Presentation/result/management discussed w/ accepting MD/DO: Hospitalist
Discharge Problem:
Syncope, Long QT interval, Orthostatic hypotension
Prescriptions:
No Action
atorvastatin 80 mg Tablet
80 mg PO HS
melatonin 3 mg Tablet
6 mg PO HS
magnesium hydroxide [Milk of Magnesia] 400 mg/5 mL Suspension
30 ml PO DAILY PRN (Reason: if no BM after 3 days)
tamsulosin 0.4 mg Capsule
0.8 mg PO QPM
bisacodyl [Dulcolax (bisacodyl)] 10 mg Suppository
10 mg SC DAILY PRN (Reason: if no BM in 24 hrs after MOM)
Fleet Enema 19-7 gram/118 mL Enema
118 ml SC DAILY PRN (Reason: if no BM in 24 hrs after bisacodyl supp.)
aspirin 81 mg Tablet,Chewable
81 mg PO DAILY
enoxaparin 40 mg/0.4 mL Syringe
40 mg SC DAILY
insulin aspart U-100 100 unit/mL (3 mL) Insulin Pen
0 sliding scale dose SC ACHS
Rx Instructions:
11/25/2023, if 151-200 = 2 units; 201-250 = 4 units; 251-300 = 6 units; 301-350 = 8 units; 351-400 = 10 units; call physician for BS>400.
metoprolol tartrate 25 mg Tablet
25 mg PO Q6H
Rx Instructions:
11/25/2023, hold for SBP<100 and/or HR<60.
Entresto 24-26 mg Tablet
1 tab PO BID
Rx Instructions:
11/25/2023, hold for SBP<110.
magnesium oxide 400 mg magnesium Tablet
800 mg PO DAILY
insulin glargine-yfgn 100 unit/mL (3 mL) Insulin Pen
7 unit SC HS
Rx Instructions:
11/25/2023, hold and call MD for BS<100.
bupropion HCl [Wellbutrin XL] 150 mg tablet extended release 24 hr
150 mg PO DAILY Qty: 30 0RF
paroxetine HCl [Paxil] 30 mg tablet
30 mg PO DAILY Qty: 30 0RF
acetaminophen [Tylenol] 325 mg Tablet
650 mg PO Q6H PRN (Reason: c/o pain/discomfort)
Neosporin ([id number]) 3.5mg-400 unit- 5,000 unit/gram Ointment
1 applic TOPICAL BID
zinc oxide 10 % Cream
1 applic TOPICAL BID
Patient Comments:
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
zinc oxide 10 % Cream
1 applic TOPICAL DAILYPRN PRN (Reason: apply to B/L buttocks)
Referrals:
Eligio Glass MD [Family Provider] -
Interventions
Interventions:
*Risk Screen - Suicide Last Done: 11/25/23 10:15
*General Assessment Last Done: 11/25/23 10:15
*Neglect/Abuse Screening Last Done: 11/25/23 10:15
ED- Fall Risk Assessment Last Done: 11/25/23 10:15
*ED COVID-19 Vaccine History Last Done: 11/25/23 10:04
ED- Cardiac Assessment Last Done: 11/25/23 10:15
ED- Neurological Assessment Last Done: 11/25/23 10:15
ED- Pulmonary Assessment Last Done: 11/25/23 10:15
--- NOTE | 2023-11-25 13:12 | HPS.HSE ---
Family Physician
-
Family Physician: Eligio Glass MD
Chief Complaint
-
syncope
History of Present Illness
73 y/o M with PMHx:
Chronic hepatitis C
History of stroke
Chronic ambulatory dysfunction
Anxiety/depression
DM2
Chronic HFrEF
PAD
Ischemic cardiomyopathy
Chronic HFrEF
h/o polysubstance abuse
PTSD
BPH
who p/w CC syncope. Yesterday, the patient was working with physical therapy. He had a syncopal episode. He had no prodromal symptoms. He denies chest pain, palpitations, nausea, diaphoresis, shortness of breath at that time. Today's
orthostatic vital signs were being checked and his blood pressure dropped significantly upon sitting. He was sent to the hospital for this reason. He did not have a syncopal episode today. Currently the patient states he feels 'fine.'.
Medical History
Past Medical History
Past Medical History: Reports Other (as per HPI)
Past Surgical History: Reports Other (N/A)
Social History
Tobacco: Non-smoker
Alcohol: None
Drug: None
Family History
Family History: Not pertinent
Allergies / Home Medications
Allergies reflects when Allergies were last updated in [facility].
Home Medications with original date entered in [facility]
Allergy/Medication List:
Allergies
Allergy/AdvReac Type Severity Reaction Status Date / Time
clopidogrel Allergy Unknown Verified 11/01/23 21:55
lisinopril Allergy Unknown Verified 11/01/23 21:55
spironolactone Allergy Unknown Verified 11/01/23 21:55
Home Medications
aspirin 81 mg chewable tablet 81 mg PO DAILY Blood Clot Prevention/Tx 11/01/23
atorvastatin 80 mg tablet 80 mg PO HS High Cholesterol 11/01/23
bisacodyl 10 mg rectal suppository (Dulcolax (bisacodyl)) 10 mg [place] DAILY PRN if no BM in 24 hrs after MOM 11/01/23
enoxaparin 40 mg/0.4 mL subcutaneous syringe 40 mg SC DAILY Blood Clot Prevention 11/01/23
insulin aspart U-100 100 unit/mL (3 mL) subcutaneous pen 0 sliding scale dose SC ACHS Diabetes 11/01/23
insulin glargine-yfgn 100 unit/mL (3 mL) subcutaneous pen 7 unit SC HS Diabetes 11/01/23
magnesium hydroxide 400 mg/5 mL oral suspension (Milk of Magnesia) 30 ml PO DAILY PRN if no BM after 3 days 11/01/23
magnesium oxide 800 mg PO DAILY Electrolyte Repletion 11/01/23
melatonin 3 mg tablet 6 mg PO HS Sleep 11/01/23
metoprolol tartrate 25 mg tablet 25 mg PO Q6H Blood Pressure 11/01/23
sacubitril 24 mg-valsartan 26 mg tablet (Entresto) 1 tab PO BID Heart Failure 11/01/23
sodium phosphates 19 gram-7 gram/118 mL enema (Fleet Enema) 118 ml VA DAILY PRN if no BM in 24 hrs after bisacodyl supp. 11/01/23
tamsulosin 0.4 mg capsule 0.8 mg PO QPM Urinary Issue 11/01/23
bupropion HCl 150 mg 24 hr tablet, extended release (Wellbutrin XL) 150 mg PO DAILY #30 tabs 11/08/23
paroxetine HCl 30 mg tablet (Paxil) 30 mg PO DAILY #30 tabs 11/08/23
acetaminophen 325 mg tablet (Tylenol) 650 mg PO Q6H PRN c/o pain/discomfort 11/25/23
neomycin-bacitracn Zn-polymyx 3.5 mg-400 unit-5,000 unit/gram top oint (Neosporin ([id number])) 1 applic topical BID apply to head of penis 11/25/23
zinc oxide 10 % topical cream 1 applic topical BID apply to B/L buttocks 11/25/23
zinc oxide 10 % topical cream 1 applic topical DAILYPRN PRN apply to B/L buttocks 11/25/23
Review of Systems
-
History Source: Patient
A 12 point ROS was completed and negative except as noted: Yes
Physical Exam
Vital Signs
Vital Signs
Temp Pulse Resp BP Pulse Ox
98.3 F 93 22 136/67 99
11/25/23 10:04 11/25/23 12:00 11/25/23 10:04 11/25/23 12:00 11/25/23 11:30
Physical Exam
General: Other (.)
Laboratory Results
-
11/25/23 10:19
11/25/23 10:19
Laboratory Results
Total Bilirubin 0.4 mg/dl (0.2-1.3) 11/25/23 10:19
AST 29 U/L (17-59) 11/25/23 10:19
ALT 20 U/L (0-50) 11/25/23 10:19
Alkaline Phosphatase 91 U/L (38-126) 11/25/23 10:19
Troponin I < 0.012 ng/ml 11/25/23 10:19
Impression/Plan
-
Gen: NAD, AAOx3.
Eyes: EOMI, PERRLA, no scleral icterus.
Neck: supple.
CV: RRR, +S1/S2, no m/r/g.
Resp: CTAB, no rales, wheezes, or rhonchi.
Abd: +BS, soft, NT, ND
Skin: No rashes.
Neuro: CN 2-12 intact, non-focal.
Psych: Normal mood and affect.
Syncope:
-ECG (read by me): NSR @ 95, L-axis, QTc 472ms, TW flattening II, III, aVF, TWi V4-V6, no acute ST changes
-Trop < 0.012, trend for completeness
-check echo
-orthostatic VS POS in ER
-1L NS given
-at this point it appears that the patient's syncope is due to orthostatic hypotension
-continue with NS @ 75cc/hr
-hold Entresto but cont BB
Other problems:
Chronic hepatitis C
History of stroke
Chronic ambulatory dysfunction
Anxiety/depression
DM2
Chronic HFrEF
PAD
Ischemic cardiomyopathy
Chronic HFrEF
h/o polysubstance abuse
PTSD
BPH
DNR - confirmed with the pt in the ER
Lovenox
Tele
--- NOTE | 2023-11-25 13:23 | EDRN ---
this RN noticed that the pts last blood pressures was low, Dr. Marcum notified, the pt is asymptomatic, blood pressure rechecked and 130/62 (82), will continue to monitor the pt closely
--- NOTE | 2023-11-25 14:45 | CARDSERVLU ---
Echocardiogram with [facility] completed after protocol screening completed. Allergies verified.
Patent IV site: __Right accessory cephalic 22 G PC___
IV site flushed with 0.9% NaCl pre and post administration.
Diluted bolus method utilized to enhance visualization of ventricular acuna.
Total volume given: __3__ mL
Patient tolerated all procedures well without complications.
--- NOTE | 2023-11-25 14:58 | EDRN ---
indwelling urinary catheter that the pt arrived to ED with removed by this RN per Dr. Joshi orders, while this RN was removing alejandro the pt stated, 'I do want this out however i wasn't able to pee the last time they took it out', this RN notified
Dr. Kline and this RN asked for orders for bladder scan to be placed
--- NOTE | 2023-11-25 15:10 | EDRN ---
this RN called the receiving unit and notified them that paper report was going to be tubed up
--- NOTE | 2023-11-25 15:25 | CON.CAR ---
Addendum entered and electronically signed by Benji Hi MD 11/25/23 16:56:
I saw and examined the patient.
The OPTION TRADER's note was reviewed and I agree with the note.
Comment: 73-year-old male (known to Dr. Figueroa, his primary traffic representative at the [employer]), HFrEF(20% for at least 2 years per his report), CAD, CVA, type 2 diabetes melitis, hypertension, and dyslipidemia who presented to the emergency department with a
chief complaint of syncope. He was working with physical therapy and while walking all of a sudden passed out. There was no prodrome. This is never happened before. He states there are times when he changes position and felt lightheaded but this
did not feel like that. He had no chest pain or palpitations. He came to without any complaint. Interestingly, he tells me he was set to have an ICD placed in August but then had cellulitis so that was delayed. His weight is quite down from
where he typically is. Currently he is feeling better. On physical exam he is in no apparent distress with a regular rate and rhythm normal S1-S2 no murmur rubs or gallops were appreciated, lungs were clear to auscultation bilaterally.
Extremities are warm well-perfused on clubbing cyanosis or edema. He is alert and oriented x 3. EKG is significant for a prolonged QTc interval. Echo done today showed EF of 20 to 25% with global hypokinesis. Telemetry is without any arrhythmia.
Given his known cardiac history, exertional syncope without a prodrome and prolonged QT interval in the setting of an EF of 20 to 25%, there is no way to rule out an arrhythmic etiology to his syncope. Granted he did present orthostatic, but he
does have orthostatic dizziness from time to time. He was set to have an ICD placed in August and this was delayed. I would recommend proceeding to ICD placement. Will ask EP whether or not further EP study is needed although his complex is
narrow. Recommend avoiding any agents that would prolong his QTc. Will decrease his beta-mayank but may get the succinate formulation as appropriate for heart failure. We will add back Naimao as able. He reports he gets urinary tract
infections so we will avoid SGLT2 inhibitors. Thank you for this consult, we will follow.
Original Note:
Consultation
Consultation Request
Date/Time Consultation Requested: 11/25/23 15:30
Date/Time Consultation Performed: 11/25/23 15:30
Requesting Provider: Dr. Kline
Performing Provider: JIMMIE Hayes for Dr. Hi
Reason for Consultation: Syncope, Long QTc
Medical History
-
Chief Complaint: Syncope
History of Present Illness:
Angel Zabala is a 73-year-old male (known to Dr. Figueroa, his primary traffic representative at the [employer]), with heart failure (type unknown), CAD, CVA, type 2 diabetes melitis, hypertension, and dyslipidemia who presented to the emergency department with a
chief complaint of syncope. He had a syncopal episode while working with physical therapy at [facility]. He reports he was ambulating and does not recall anything after that besides waking up on the floor. He denies prodrome. He is not having
any chest pain. He is not having any shortness of breath. He was found to have orthostasis in the emergency department. He has a prolonged QT.
Past Medical History
Past Medical History: CAD, CHF, CVA and NIDDM
Past Surgical History: Cardiac
Social History
Tobacco: Former Smoker
Alcohol: None
Drug: None
Living: Correction
Employment: Retired
Family History
Family History: Reviewed & Not Pertinent
Allergies / Home Medications
Allergy/AdvReac Type Severity Reaction Status Date / Time
clopidogrel Allergy Unknown Verified 11/01/23 21:55
lisinopril Allergy Unknown Verified 11/01/23 21:55
spironolactone Allergy Unknown Verified 11/01/23 21:55
Medication Instructions Recorded Confirmed Type
aspirin 81 mg chewable tablet 81 mg PO DAILY Blood Clot 11/01/23 11/25/23 History
Prevention/Tx
atorvastatin 80 mg tablet 80 mg PO HS High Cholesterol 11/01/23 11/25/23 History
bisacodyl 10 mg rectal suppository 10 mg SC DAILY PRN if no BM in 24 11/01/23 11/25/23 History
(Dulcolax (bisacodyl)) hrs after MOM
enoxaparin 40 mg/0.4 mL 40 mg SC DAILY Blood Clot 11/01/23 11/25/23 History
subcutaneous syringe Prevention
insulin aspart U-100 100 unit/mL 0 sliding scale dose SC ACHS 11/01/23 11/25/23 History
(3 mL) subcutaneous pen Diabetes
insulin glargine-yfgn 100 unit/mL 7 unit SC HS Diabetes 11/01/23 11/25/23 History
(3 mL) subcutaneous pen
magnesium hydroxide 400 mg/5 mL 30 ml PO DAILY PRN if no BM after 11/01/23 11/25/23 History
oral suspension (Milk of Magnesia) 3 days
magnesium oxide 800 mg PO DAILY Electrolyte 11/01/23 11/25/23 History
Repletion
melatonin 3 mg tablet 6 mg PO HS Sleep 11/01/23 11/25/23 History
metoprolol tartrate 25 mg tablet 25 mg PO Q6H Blood Pressure 11/01/23 11/25/23 History
sacubitril 24 mg-valsartan 26 mg 1 tab PO BID Heart Failure 11/01/23 11/25/23 History
tablet (Entresto)
sodium phosphates 19 gram-7 118 ml SC DAILY PRN if no BM in 24 11/01/23 11/25/23 History
gram/118 mL enema (Fleet Enema) hrs after bisacodyl supp.
tamsulosin 0.4 mg capsule 0.8 mg PO QPM Urinary Issue 11/01/23 11/25/23 History
bupropion HCl 150 mg 24 hr tablet, 150 mg PO DAILY #30 tabs 11/08/23 11/25/23 Rx
extended release (Wellbutrin XL)
paroxetine HCl 30 mg tablet (Paxil) 30 mg PO DAILY #30 tabs 11/08/23 11/25/23 Rx
acetaminophen 325 mg tablet 650 mg PO Q6H PRN c/o 11/25/23 11/25/23 History
(Tylenol) pain/discomfort
neomycin-bacitracn Zn-polymyx 3.5 1 applic topical BID apply to head 11/25/23 11/25/23 History
mg-400 unit-5,000 unit/gram top of penis
oint (Neosporin (dsh-aiz-ajonj))
zinc oxide 10 % topical cream 1 applic topical BID apply to B/L 11/25/23 11/25/23 History
buttocks
zinc oxide 10 % topical cream 1 applic topical DAILYPRN PRN 11/25/23 11/25/23 History
apply to B/L buttocks
Review of Systems
-
History Source: Patient
All other systems: Negative unless noted
Respiratory: No Symptoms
Abdomen/GI: No Symptoms
: No Symptoms
Physical Exam
Vital Signs
Temp Pulse Resp BP Pulse Ox
98.3 F 94 22 140/67 97
11/25/23 10:04 11/25/23 15:00 11/25/23 10:04 11/25/23 15:00 11/25/23 15:00
Lab Results
11/25/23 10:19
11/25/23 10:19
Troponin I < 0.012 ng/ml 11/25/23 10:19
Enf-D-Tjujmgcsgzz Pept 1640 pg/ml 11/25/23 10:19
Physical Exam
General: Well Developed, Well Nourished, No Apparent Distress and Comfortable
HEENT: Normocephalic, Anicteric and Moist Mucous Membranes
Respiratory: Clear and Non Labored Respirations
Cardiac: S1/S2 and Regular Rhythm
Breast: Deferred by me
GI: Soft, Non Tender, Non Distended and Normal Bowel Sounds
Rectal: Deferred by Provider
Genito-urinary: No Costovertebral Tender
Musculoskeletal: No Cyanosis and No Edema
Skin: Warm and Dry
Neuro: AO x 3
Hematologic/Lymphatic: No Lymphadenopathy
Psych: Calm
Impression / Plan
-
Syncope with long QTc
-EKG in am
-Avoid QTc prolonging agents
-Consider EP study given exertional syncope
HFrEF, ICM, chronic
-LVEF 20-25% on TTE 11/25/23 (prior TTE requested)
-GDMT as tolerated
-Beta mayank: transition metoprolol tartrate to metoprolol succinate
-ACEi/ARB: On Entresto (Lisinopril caused 'bumps around mouth')
-SGLT2i: Can consider
-MRA: Can consider in the outpatient setting
-ICD: Chronicity of EF unknown, records requested from [place]
-Trend daily weight, I/Os, & BMP
-Heart failure education
HTN
Anemia, appears chronic
CAD, prior CABG, stable without chest pain
Type II DM, Hgba1c 7.7%, per primary
Chronic hepatitis C
Prior MSSA bacteremia in the setting of LLE cellulitis (08/2023)
DATA:
TTE 09/06/2023: Regional wall motion abnormality with akinesia of basal to mid anteroseptal, basal to mid inferior septal, apical septal, and apex location. Other LV segments are hypokinetic. No EF documented. No vegetation present on aortic
valve or other obvious valvular vegetations.
Data Reviewed
-
EKG: Report Reviewed by me (Sinus tachycardia, LAFB, rate 137, QTc 560; sinus rhythm, lateral T wave abnormality, rate 95, QTc 470)
Radiology: Report Reviewed by me (CXR: No active cardiopulmonary disease.)
Labs: Labs Reviewed by me
Old Records: Reviewed
--- NOTE | 2023-11-25 15:44 | W.PN.UPDATE ---
Update Note
Progress Note Update
Case discussed with Dr. Hi. Ejection fraction on echocardiogram is 20 to 25%. Cardiology will see in consultation.
[2023-11-25 16:38] LABS: Glucose - Point of Care 187 mg/dl (70-99)
[2023-11-25 16:46] LABS: Troponin I < 0.012 ng/ml
[2023-11-25] MEDS: FLOMAX 0.800000000000000044 MG PO (17:23)
--- NOTE | 2023-11-25 17:25 | PTCARENOTE ---
Received pt from ER via stretcher, accompanied by E R staff. Pt ARVINO x3, DUTTA; assisted to bed, no c/o weakness/dizziness. VSS. PLaced on telemetry:NSR. On room air- pulse ox 96%,no c/.o SOB. Abd large, soft, to start 1800 mague diet. Betsey major
prior to arrival on unit; pt DTV; urinal at bedside. Resting comfortably at present, no c/o. Will continue to monitor.
[2023-11-25 19:32] LABS: Troponin I < 0.012 ng/ml
[2023-11-25] MEDS: TOPROL XL 25 MG PO (20:41)
[2023-11-25] MEDS: LIPITOR 80 MG PO (20:41)
[2023-11-25] MEDS: TRIPLE PASTE 1 APPLIC TOPICAL (20:41)
[2023-11-25] MEDS: POLYSPORIN OINTMENT TOPICAL (20:53)
[2023-11-25 21:38] LABS: Glucose - Point of Care 204 mg/dl (70-99)
[2023-11-25] MEDS: MELATONIN 6 MG PO (22:12)
[2023-11-25] MEDS: LANTUS 0.0700000000000000067 UNITS SC (22:12)
[2023-11-25 22:20] LABS: Troponin I < 0.012 ng/ml
[2023-11-26 03:54] VITALS: BP 124/64
[2023-11-26] MEDS: NSS 1000 IV (04:58)
[2023-11-26 07:15] LABS: Hematocrit 30.7 % (39.0-52.0); Mean Corp Hgb Conc. 32.6 g/dL (33.0-37.0); Platelet Count 265 10^3/uL (130-400); Red Blood Cell Count 3.57 10^6/uL (4.70-6.10); Red Cell Dist. Width 13.9 % (11.5-14.5); White Blood Cell Count 5.6 10^3/uL (4.8-10.8)
[2023-11-26 07:34] LABS: Glucose - Point of Care 181 mg/dl (70-99)
[2023-11-26 07:35] VITALS: BP 145/76
[2023-11-26 07:39] LABS: Blood Urea Nitrogen 18 mg/dl (9-20); Calcium 8.9 mg/dl (8.4-10.2); Carbon Dioxide 22 mmol/L (22-30); Chloride 104 mmol/L (98-107); Estimated Creatinine Clearance 84 ml/min; Glucose 189 mg/dl (70-99); Potassium 4.1 mmol/L (3.5-5.1); Sodium 136 mmol/L (135-145); eGFR > 60.00
[2023-11-26] MEDS: LOW STRENGTH ASPIRIN 81 MG PO (08:14)
[2023-11-26] MEDS: TOPROL XL 25 MG PO ×2 (08:15→19:34)
[2023-11-26] MEDS: MAG-TAB SR 168 MG PO (08:15)
[2023-11-26] MEDS: WELLBUTRIN XL (24 hour extended release) 150 MG PO (08:17)
[2023-11-26] MEDS: PAXIL 30 MG PO (08:17)
[2023-11-26] MEDS: LOVENOX 40 MG SC (08:17)
[2023-11-26 08:19] LABS: Hepatitis C Antibody Reactive (Negative)
[2023-11-26] MEDS: POLYSPORIN OINTMENT TOPICAL ×2 (08:24→19:35)
[2023-11-26] MEDS: TRIPLE PASTE 1 APPLIC TOPICAL (08:24)
[2023-11-26] MEDS: NOVOLOG FLEXPEN-MODERATE RESISTANCE 1 UNITS SC ×2 (09:11→17:11)
--- NOTE | 2023-11-26 10:12 | W.PN.HOSP.TC ---
Today's Communication/Plan
-
see bold
Assessment / Plan
Assessment / Plan
Gen: NAD, AAOx3.
Eyes: EOMI, PERRLA, no scleral icterus.
Neck: supple.
CV: RRR, +S1/S2, no m/r/g.
Resp: CTAB, no rales, wheezes, or rhonchi.
Abd: +BS, soft, NT, ND
Skin: No rashes.
Neuro: CN 2-12 intact, non-focal.
Psych: Normal mood and affect.
Echo: EF 20-25%.�No significant valvular disease.
Syncope:
-ECG (read by me): NSR @ 95, L-axis, QTc 472ms, TW flattening II, III, aVF, TWi V4-V6, no acute ST changes
-Trop < 0.012 x 3
-echo above
-orthostatic VS POS in ER, cont to trend
-1L NS given in the ER followed by maintenance IVFs. Stop IVFs.
-at this point it appears that the patient's syncope is due to orthostatic hypotension
-continue with NS @ 75cc/hr
-holding Entresto
-cont BB
-Tele: PVCs
-for ICD placement 11/28/23
Chronic HFrEF/ICM:
-echo above
-cardiology following
-cont BB
-no SGLT2-inhibitors as h/o UTIs
Other problems:
Chronic hepatitis C
History of stroke: cont ASA/statin
Chronic ambulatory dysfunction
Anxiety/depression: Continue Wellbutrin XL/Paxil
DM2: Cont Lantus/SSI/accuchecks
PAD: cont ASA/statin
h/o polysubstance abuse
PTSD
BPH: Continue Flomax
DNR - confirmed with the pt in the ER
Lovenox
Tele
Anticipated Discharge: > 48 hours
Subjective/Interval History
-
Date of Service: November 26, 2023
Denies CP/SOB.
Objective Data
-
Labs:
Laboratory Results
11/26/23
06:12
WBC 5.6
Hgb 10.0 L
Hct 30.7 L
Plt Count 265
Sodium 136
Potassium 4.1
Chloride 104
Carbon Dioxide 22
BUN 18
Creatinine 0.9
Glucose 189 H
Calcium 8.9
Vital Signs:
Vital Signs
Temp Pulse Resp BP Pulse Ox
97.9 F 83 18 145/76 98
11/26/23 07:35 11/26/23 07:35 11/26/23 07:35 11/26/23 07:35 11/26/23 07:35
I&O
11/25/23 11/26/23 11/27/23
06:59 06:59 07:59
Intake Total 420 / 420
Output Total 1025 / 1025
Balance -605 / -605
--- NOTE | 2023-11-26 10:58 | W.PN.CD ---
Today's Communication / Plan
-
- ICD likely on Tuesday
- restart Entresto
- Start aldactone 12.5 mg QD
Impression / Plan
-
Syncope with long QTc
- EKG initiallly showed QTc of 560s but with stabilized now, it is showing 470s msec.
- Avoid QTc prolonging agents
- Exertional syncope with chronic severe systolic dysfunction boubacar with fluctuating QTc.
- In need for an ICD and with bradycardia making his QT long, will need atrial pacing as well
- Dual chamber ICD - likely on Tuesday
- NPO on tuesday night
HFrEF, ICM, chronic
-LVEF 20-25% on TTE 11/25/23 (prior TTE requested)
-Chronic - awaiting old records to confirm the severe systolic dysfunction.
-GDMT as tolerated
-Beta mayank: transition metoprolol tartrate to metoprolol succinate
-ACEi/ARB: On Entresto (Lisinopril caused 'bumps around mouth')
-SGLT2i: Can consider - as outpatient.
-MRA: Can consider in the outpatient setting
-ICD: Chronicity of EF unknown, records requested from [facility]
-Trend daily weight, I/Os, & BMP
-Heart failure education
HTN
Anemia, appears chronic
CAD, prior CABG, stable without chest pain
Type II DM, Hgba1c 7.7%, per primary
Chronic hepatitis C
Prior MSSA bacteremia in the setting of LLE cellulitis (08/2023)
Subjective:
Feeling better. no active complaints. ICD was discussed and he is open to the idea. He was told that he needs it in the past.
DATA:
TTE 09/06/2023: Regional wall motion abnormality with akinesia of basal to mid anteroseptal, basal to mid inferior septal, apical septal, and apex location. Other LV segments are hypokinetic. No EF documented. No vegetation present on aortic
valve or other obvious valvular vegetations.
Physical Exam
Vital Signs/Labs
Vital Signs
Temp Pulse Resp BP Pulse Ox
97.9 F 83 18 145/76 98
11/26/23 07:35 11/26/23 07:35 11/26/23 07:35 11/26/23 07:35 11/26/23 08:10
11/25/23 11/26/23 11/27/23
06:59 06:59 07:59
Actual Weight 81.647 kg
11/26/23 06:12
11/26/23 06:12
11/25/23
10:19
Pmo-T-Zyoyyjxmjlm Pept 1640
LAB Results
11/25/23 11/25/23 11/25/23
10:19 16:08 18:56
Troponin I < 0.012 < 0.012 < 0.012
11/25/23
21:43
Troponin I < 0.012
Physical Exam
Constitutional: No acute distress and Comfortable
Cardiovascular: Rhythm & rate is regular, Pedal edema is absent and Systolic murmur present
Respiratory: Respiratory effort normal, Lungs clear to auscul. and Crackles Absent
GI: Soft, Non tender and Normal bowel sounds
Neuro/Psych: Alert, Oriented and AO x 3
Other: Cardiac Device Site
Data Reviewed
-
Date of Service: November 26, 2023
Medical Decision Making: Reviewed Test Results, Independent Historian Assessment, Test Interpretation and Review of Case with other Provider
EKG: Tracing Personally Visualized and interpreted
Echo: Tracing Personally Visualized and interpreted
Medical Tests (PFT, Pathology etc): Image Personally Visualized and interpreted
Labs: Labs Reviewed by me
Old Records: Reviewed
[2023-11-26 11:10] VITALS: BP 106/57; BP 128/64; BP 89/57; PULSE 114; PULSE 81; PULSE 92
[2023-11-26] MEDS: ENTRESTO 24 MG/26 MG 1 TAB PO ×2 (11:58→19:34)
[2023-11-26 12:04] LABS: Glucose - Point of Care 254 mg/dl (70-99)
[2023-11-26] MEDS: NOVOLOG FLEXPEN-MODERATE RESISTANCE 5 UNITS SC (12:13)
[2023-11-26 15:27] VITALS: BP 119/62
[2023-11-26 16:52] LABS: Glucose - Point of Care 183 mg/dl (70-99)
[2023-11-26] MEDS: FLOMAX 0.800000000000000044 MG PO (17:10)
[2023-11-26] MEDS: LIPITOR 80 MG PO (19:34)
[2023-11-26] MEDS: ANESTHETIC LOZENGE 1 LOZENGE PO (19:34)
[2023-11-26] MEDS: ROBITUSSIN 200 MG PO (19:34)
[2023-11-26] MEDS: TRIPLE PASTE TOPICAL (19:35)
[2023-11-26 19:43] VITALS: BP 103/59; BP 143/74; BP 71/52; PULSE 107; PULSE 86; PULSE 95
[2023-11-26 21:08] LABS: Glucose - Point of Care 210 mg/dl (70-99)
[2023-11-26] MEDS: LANTUS 0.0700000000000000067 UNITS SC (22:00)
[2023-11-26] MEDS: MELATONIN 6 MG PO (22:00)
[2023-11-26 23:25] VITALS: BP 125/68
[2023-11-27 03:43] VITALS: BP 93/59
[2023-11-27] MEDS: ANESTHETIC LOZENGE 1 LOZENGE PO (06:07)
[2023-11-27] MEDS: ROBITUSSIN 200 MG PO ×2 (06:07→15:57)
[2023-11-27 07:20] VITALS: BP 117/63; BP 84/54; PULSE 89; PULSE 99
[2023-11-27 07:27] LABS: Glucose - Point of Care 221 mg/dl (70-99)
[2023-11-27] MEDS: TOPROL XL 25 MG PO ×2 (08:34→21:46)
[2023-11-27] MEDS: LOVENOX 40 MG SC (08:34)
[2023-11-27] MEDS: ENTRESTO 24 MG/26 MG 1 TAB PO ×2 (08:34→21:46)
[2023-11-27] MEDS: PAXIL 30 MG PO (08:34)
[2023-11-27] MEDS: MAG-TAB SR 168 MG PO (08:34)
[2023-11-27] MEDS: ALDACTONE 12.5 MG PO (08:34)
[2023-11-27] MEDS: LOW STRENGTH ASPIRIN 81 MG PO (08:34)
[2023-11-27] MEDS: WELLBUTRIN XL (24 hour extended release) 150 MG PO (08:34)
[2023-11-27] MEDS: POLYSPORIN OINTMENT TOPICAL ×2 (08:44→21:43)
[2023-11-27] MEDS: NOVOLOG FLEXPEN-MODERATE RESISTANCE 3 UNITS SC ×2 (08:44→12:18)
[2023-11-27] MEDS: TRIPLE PASTE 1 APPLIC TOPICAL (08:45)
--- NOTE | 2023-11-27 09:35 | W.PN.HOSP.TC ---
Today's Communication/Plan
-
see bold
Assessment / Plan
Assessment / Plan
Gen: remains NAD, AAOx3.
Eyes: EOMI, PERRLA, no scleral icterus.
Neck: supple.
CV: remains RRR, +S1/S2, no m/r/g.
Resp: remains CTAB, no rales, wheezes, or rhonchi.
Abd: +BS, soft, NT, ND
Skin: No rashes.
Neuro: CN 2-12 intact, non-focal.
Psych: Normal mood and affect.
Echo: EF 20-25%.�No significant valvular disease.
Syncope:
-ECG (read by me): NSR @ 95, L-axis, QTc 472ms, TW flattening II, III, aVF, TWi V4-V6, no acute ST changes
-Trop < 0.012 x 3
-echo above
-orthostatic VS POS in ER, cont to trend
-1L NS given in the ER followed by maintenance IVFs. IVFs stopped 11/26/23AM.
-Entresto restarted
-cont BB/aldactone
-Tele: PVCs
-for ICD placement 11/28/23
Chronic HFrEF/ICM:
-echo above
-cardiology following
-cont BB
-no SGLT2-inhibitors as h/o UTIs
Other problems:
Chronic hepatitis C
History of stroke: cont ASA/statin
Chronic ambulatory dysfunction
Anxiety/depression: Continue Wellbutrin XL/Paxil
DM2: Cont Lantus/SSI/accuchecks
PAD: cont ASA/statin
h/o polysubstance abuse
PTSD
BPH: Continue Flomax
DNR - confirmed with the pt in the ER
Lovenox
Tele
Anticipated Discharge: 24 - 48 hours
Subjective/Interval History
-
Date of Service: November 27, 2023
Denies CP/SOB.
Objective Data
-
Vital Signs:
Vital Signs
Temp Pulse Resp BP Pulse Ox
97.9 F 89 22 117/63 93
11/27/23 07:20 11/27/23 07:20 11/27/23 07:20 11/27/23 07:20 11/27/23 07:20
I&O
11/26/23 11/27/23 11/28/23
05:59 06:59 06:59
Intake Total
Output Total
Balance
--- NOTE | 2023-11-27 09:50 | W.PN.CD ---
Today's Communication / Plan
-
-NPO after midnight
- ICD in AM
Impression / Plan
-
Syncope with long QTc
- EKG initiallly showed QTc of 560s but with stabilized now, it is showing 470s msec.
- Avoid QTc prolonging agents
- Exertional syncope with chronic severe systolic dysfunction boubacar with fluctuating QTc.
- In need for an ICD and with bradycardia making his QT long, will need atrial pacing as well
- Dual chamber ICD - on Tuesday
- NPO on tuesday night
HFrEF, ICM, chronic
-LVEF 20-25% on TTE 11/25/23 (prior TTE requested)
-Chronic - awaiting old records to confirm the severe systolic dysfunction.
-GDMT as tolerated
-Beta mayank: transition metoprolol tartrate to metoprolol succinate
-ACEi/ARB: On Entresto (Lisinopril caused 'bumps around mouth')
-SGLT2i: Can consider - as outpatient.
-MRA: Can consider in the outpatient setting
-ICD: Chronic low EF. Patient was scheduled for ICD placement at [facility] but was canceled due to infections
-Trend daily weight, I/Os, & BMP
-Heart failure education
HTN
Anemia, appears chronic
CAD, prior CABG, stable without chest pain
Type II DM, Hgba1c 7.7%, per primary
Chronic hepatitis C
Prior MSSA bacteremia in the setting of LLE cellulitis (08/2023)
Subjective:
Feeling better. no active complaints. ICD was discussed and he is open to the idea. He was told that he needs it in the past.
DATA:
TTE 09/06/2023: Regional wall motion abnormality with akinesia of basal to mid anteroseptal, basal to mid inferior septal, apical septal, and apex location. Other LV segments are hypokinetic. No EF documented. No vegetation present on aortic
valve or other obvious valvular vegetations.
Physical Exam
Vital Signs/Labs
Vital Signs
Temp Pulse Resp BP Pulse Ox
97.9 F 89 22 117/63 93
11/27/23 07:20 11/27/23 07:20 11/27/23 07:20 11/27/23 07:20 11/27/23 07:20
11/26/23 11/27/23 11/28/23
05:59 06:59 06:59
Actual Weight
11/26/23 06:12
11/26/23 06:12
11/25/23
10:19
Yua-U-Cmjbbelyeca Pept 1640
LAB Results
11/25/23 11/25/23 11/25/23
10:19 16:08 18:56
Troponin I < 0.012 < 0.012 < 0.012
11/25/23
21:43
Troponin I < 0.012
Physical Exam
Constitutional: No acute distress and Comfortable
EENT: Anicteric and Moist mucous membranes
Cardiovascular: Rhythm & rate is regular, Pedal edema is absent, JVD pressure is normal and Systolic murmur present
Respiratory: Respiratory effort normal, Lungs clear to auscul. and Wheeze Absent
GI: Soft, Distention absent and Non tender
Neuro/Psych: Alert, Oriented and AO x 3
Data Reviewed
-
Date of Service: November 27, 2023
Medical Decision Making: Reviewed Test Results, Independent Historian Assessment and Test Interpretation
EKG: Tracing Personally Visualized and interpreted
Echo: Report Reviewed by me
Labs: Labs Reviewed by me
Old Records: Reviewed
[2023-11-27 11:15] VITALS: BP 141/72
[2023-11-27 11:44] LABS: Glucose - Point of Care 212 mg/dl (70-99)
[2023-11-27 15:30] VITALS: BP 106/57
[2023-11-27 17:10] LABS: Glucose - Point of Care 159 mg/dl (70-99)
[2023-11-27] MEDS: FLOMAX 0.800000000000000044 MG PO (17:12)
[2023-11-27] MEDS: NOVOLOG FLEXPEN-MODERATE RESISTANCE 1 UNITS SC (17:12)
[2023-11-27 19:54] VITALS: BP 107/64; BP 149/69; BP 95/68; PULSE 118; PULSE 81; PULSE 98
[2023-11-27 21:16] LABS: Glucose - Point of Care 195 mg/dl (70-99)
[2023-11-27] MEDS: TRIPLE PASTE TOPICAL (21:43)
[2023-11-27] MEDS: LANTUS 0.0700000000000000067 UNITS SC (21:46)
[2023-11-27] MEDS: LIPITOR 80 MG PO (21:46)
[2023-11-27] MEDS: MELATONIN 6 MG PO (21:46)
[2023-11-27 23:17] VITALS: BP 142/65
[2023-11-28] VITALS (9 sets, daily range): BP systolic 75–128; BP diastolic 52–77; PULSE 83–117; BMI 21.8
[2023-11-28 05:49] LABS: Glucose - Point of Care 153 mg/dl (70-99)
[2023-11-28 07:30] LABS: Blood Urea Nitrogen 21 mg/dl (9-20); Calcium 9.3 mg/dl (8.4-10.2); Carbon Dioxide 24 mmol/L (22-30); Chloride 104 mmol/L (98-107); Estimated Creatinine Clearance 67 ml/min; Glucose 155 mg/dl (70-99); Potassium 4.5 mmol/L (3.5-5.1); Sodium 136 mmol/L (135-145); eGFR > 60.00
[2023-11-28 07:41] LABS: Hematocrit 31.1 % (39.0-52.0); Hemoglobin 10.3 g/dL (13.0-18.0); Mean Corp Hgb Conc. 33.1 g/dL (33.0-37.0); Mean Corpuscular Hgb 28.1 pg (27.0-31.0); Mean Platelet Volume 10.1 fL (7.4-10.4); Platelet Count 298 10^3/uL (130-400); Red Blood Cell Count 3.66 10^6/uL (4.70-6.10); Red Cell Dist. Width 13.7 % (11.5-14.5)
[2023-11-28] MEDS: NOVOLOG FLEXPEN-MODERATE RESISTANCE 1 UNITS SC ×2 (08:11→17:23)
--- NOTE | 2023-11-28 09:57 | W.PN.CD ---
Today's Communication / Plan
-
- Dual chamber ICD today
Impression / Plan
-
Syncope with long QTc
- EKG initially showed QTc of 560s but with stabilized now, it is showing 470s msec.
- Avoid QTc prolonging agents
- Exertional syncope with chronic severe systolic dysfunction boubacar with fluctuating QTc.
- In need for an ICD and with bradycardia making his QT long, will need atrial pacing as well
- Dual chamber ICD - today
- ILR in place but appears to be biotronic
HFrEF, ICM, chronic
-LVEF 20-25% on TTE 11/25/23 (prior TTE requested)
-Chronic - awaiting old records to confirm the severe systolic dysfunction.
-GDMT as tolerated
-Beta mayank: transition metoprolol tartrate to metoprolol succinate
-ACEi/ARB: On Entresto (Lisinopril caused 'bumps around mouth')
-SGLT2i: Can consider - as outpatient.
-MRA: Can consider in the outpatient setting
-ICD: Chronic low EF. Patient was scheduled for ICD placement at [facility] but was canceled due to infections
-ICD today - dual chamber with his fluctuating QTc
-Trend daily weight, I/Os, & BMP
-Heart failure education
HTN
Anemia, appears chronic
CAD, prior CABG, stable without chest pain
Type II DM, Hgba1c 7.7%, per primary
Chronic hepatitis C
Prior MSSA bacteremia in the setting of LLE cellulitis (08/2023)
Subjective:
Feeling better. no active complaints. ICD planned for today.
DATA:
TTE 09/06/2023: Regional wall motion abnormality with akinesia of basal to mid anteroseptal, basal to mid inferior septal, apical septal, and apex location. Other LV segments are hypokinetic. No EF documented. No vegetation present on aortic
valve or other obvious valvular vegetations.
Physical Exam
Vital Signs/Labs
Vital Signs
Temp Pulse Resp BP Pulse Ox
97.5 F 83 20 111/62 97
11/28/23 07:35 11/28/23 07:35 11/28/23 07:35 11/28/23 07:35 11/28/23 07:35
11/27/23 11/28/23 11/29/23
06:59 06:59 06:59
Actual Weight 79.095 kg
11/28/23 06:54
11/28/23 06:54
11/25/23
10:19
Wki-N-Rftjrldkrne Pept 1640
LAB Results
11/25/23 11/25/23 11/25/23
10:19 16:08 18:56
Troponin I < 0.012 < 0.012 < 0.012
11/25/23
21:43
Troponin I < 0.012
Physical Exam
Constitutional: No acute distress and Comfortable
EENT: Anicteric and Moist mucous membranes
Cardiovascular: Rhythm & rate is regular, Pedal edema is absent and JVD pressure is normal
Respiratory: Respiratory effort normal, Lungs clear to auscul., Wheeze Absent and Crackles Absent
GI: Soft, Distention absent and Non tender
Neuro/Psych: Alert, Oriented and AO x 3
Data Reviewed
-
Date of Service: November 28, 2023
Medical Decision Making: Reviewed Test Results, Independent Historian Assessment, Test Interpretation and Review of Case with other Provider
EKG: Tracing Personally Visualized and interpreted
Echo: Report Reviewed by me
Labs: Labs Reviewed by me
Old Records: Reviewed
--- NOTE | 2023-11-28 10:12 | ITS.CL.ICD ---
Cigarette Machine Filler - ICD
Implantable Cardioverter Defibrillator
Procedure Report:
Dual Chamber Implantable Cardioverter Defibrillator Placement:
Mr. Zabala is a 73-year-old male with coronary artery disease s/p CABG, HTN, DM, hepatitis C, with chronic heart failure with reduced ejection fraction (20%) with years of guideline directed medical therapy and present with syncope and ECHO showing
LVEF of 20% and noted to have long QTc that improved over his hospitalization. He is in need for atrial pacing for his fluctuating QTc and ICD for his primary vs secondary prevention of sudden cardiac .
Indications: Secondary prevention ICD. Sudden cardiac with chronic HFrEF with LVEF of 20% despite on guideline directed cardiomyopathy. Atrial pacing needed for long QTc.
Date of the Procedure:
11/28/2023
Pre-Operative Diagnosis: chronic heart failure with reduced ejection fraction, long QTc and syncope
Post-Operative Diagnosis: chronic heart failure with reduced ejection fraction, long QTc and syncope
Procedure Performed: DUAL CHAMBER IMPLANTABLE CARDIOVERTER DEFIBRILLATOR IMPLANTATION
Surgeon:
Safia Joel MD
Anesthesia:
See anesthesia report
Detailed Description of the Procedure:
The patient was identified using hospital identification and informed consent obtained for the procedure. The risks were explained including, but not limited to: Bleeding, infection, arrhythmia, stroke, vascular/cardiac/lung puncture, surgery,
pacemaker dependency/device malfunction. All questions were answered.
The patient was brought to the electrophysiology laboratory in stable condition in fasting state. Continuous electrocardiographic and hemodynamic monitoring was initiated. The initial rhythm was normal sinus.
The procedure site was meticulously prepared with surgical scrub and allowed to dry with no pooling. Sterile draping was applied to cover the procedure site. The image intensifier was draped with sterile bag and positioned over the patient.
The left infra-clavicular region was prepped and draped in the usual sterile fashion. Local anesthesia was administered subcutaneously using 1% lidocaine / Bupivacaine. The left cephalic vein cut-down was performed with an incision at the
delto-pectoral groove, and vascular sheaths were introduced for lead access. These were advanced into the right ventricle and the right atrium.
The right ventricular lead was secured in position with an active fixation technique at the apical septal location.
The RA lead was attached in the right atrial appendage with passive paramjit fixation.
There was excellent sensing, pacing, and impedance from the leads, with no diaphragmatic stimulation at 10 V output.�Bovie cautery, antibiotics, and fluoroscopy were used.
The sheath was withdrawn, and the thresholds remained acceptable. The lead was secured in position at the venous entry site with 0-silk. A pocket was fashioned contiguous to the incision. The electrode terminals were connected to the pulse
generator, which was placed into the pocket. The wound was irrigated thoroughly with antibiotic solution.
A Tyrx pouch was installed in the pocket around the device and wires.
The wound was closed in 3 layers using 2-0 VLoc sutures followed by 2 layers of 4-0 V-loc sutures. Steri-Strips and a bandage were applied externally.�
Procedure End:
The procedure was tolerated well. A bandage was applied to the incision area.
Estimated Blood loss:
5 cc
Fluoro time:
0.7min/ 1.98 mGy
Specimens Removed:
No cultures and no specimens were obtained. No intraoperative pathology was identified.
Urine output:
None
Packs / Drains/ Tubes:
None
Instrument / Sponge Count Correct:
Yes
Complications of the Procedure:
None
Condition of Patient at Time of Transfer:
Hemodynamically stable with no neurological or vascular compromise.
Device information:�
Generator: Siriona; Model: [id number]; Serial # [id number]�
Atrial Lead: Medtronic; Model: 4574-53; Serial # [id number]�
Measured data in the right atrium was sensing of 4.8 mV of AF waves, impedance of 608 ohms and threshold of 0.5 V at 0.4ms�
RV Lead: Medtronic; Model: [id number]-62; Serial # [id number]
Measured data in the RV lead was sensing of 7.2 mV, impedance of 570ohms and threshold of 0.8 V at 0.4ms�
PROGRAMMING PARAMETERS:�
Javier parameter settings were AAIR <=>DDDR 50-130 bpm. �
����������� Mode switch: On
����������� Paced AV delay: 130 ms
����������� Sensed AV delay: 100 ms
����������� Rate Adaptive A-V Interval: Off
Output parameters:
����������������������� Amplitude (V)������������� Pulse Width (ms)������� Sensitivity (mV)
����������� RA: ����� 3.5 ����������������� 0.4������������������ 0.3
����������� RV:������ 3.5������������������ 0.4������������������ 0.3
Tachy parameter settings:
����������� SVT discrimination: On
����������� AF/AFl: On
����������� SVT limit: 260 msec
����������� VT zone:
����������������������� Slow VT: 150 - 188 bpm --> Monitor
����������������������� Fast VT/VF: > 188 bpm --> Shock x6 (ATP before and during)
�����������
Summary:
Successful implantation of MRI compatible dual chamber Medtronic implantable Cardioverter Defibrillator.�
Results/Recommendations:
-Please follow up CXR�
1. Please provide patient with adequate pain control�
Instructions to be given to patient:�
- Please follow up with [facility] at [address] [place] [address] ([phone]) to get your wound checked within 14 days of your discharge.
- Do not soak incision site until after it is evaluated at cardiology clinic. OK to showers followed by dab dry the area. No baths or swimming until then. Sponge baths are OK.�
- Allow 'steri strips' to fall off on their own�
- Do not lift left elbow above shoulder, particularly with sudden jerking movements, for 1 month�
- Do not lift anything weighing more than 5 pounds with the left arm for 1 month�
- If you notice any fevers, shortness of breath, lightheadedness, chest pain, or worsening swelling in the wound site, please contact the arrhythmia clinic, contact your power chisel operator, or present to the hospital for evaluation.�
Safia Joel MD
Electrophysiology
--- NOTE | 2023-11-28 10:28 | PTCARENOTE ---
pt back from EP lab s/p Dual chamber ICD. pt is AAO*3, Vss, room air. denies any pain. immobilizer in place. bedrest for 1 hr. call anderson within the reach. will continue plan of care.
[2023-11-28 10:34] LABS: Glucose - Point of Care 157 mg/dl (70-99)
[2023-11-28] MEDS: PAXIL 30 MG PO (10:37)
[2023-11-28] MEDS: MAG-TAB SR 168 MG PO (10:37)
[2023-11-28] MEDS: LOW STRENGTH ASPIRIN 81 MG PO (10:39)
[2023-11-28] MEDS: WELLBUTRIN XL (24 hour extended release) 150 MG PO (10:39)
[2023-11-28] MEDS: TOPROL XL 25 MG PO ×2 (10:39→20:24)
[2023-11-28] MEDS: POLYSPORIN OINTMENT TOPICAL (10:40)
[2023-11-28] MEDS: ALDACTONE 12.5 MG PO (10:40)
[2023-11-28] MEDS: TRIPLE PASTE TOPICAL (10:40)
[2023-11-28] MEDS: ENTRESTO 24 MG/26 MG 1 TAB PO ×2 (10:41→20:23)
[2023-11-28] MEDS: LOVENOX 40 MG SC (10:41)
--- NOTE | 2023-11-28 12:12 | W.PN.HOSP.TC ---
Today's Communication/Plan
-
PT OT
Assessment / Plan
Assessment / Plan
Admitted with syncope while working with physical therapy. He passed out.
Echo: EF 20-25%.�No significant valvular disease.
Denies any complaints
Left chest wall ICD
Cardiovascular system S1-S2 normal
Chest clear to auscultation
Abdomen soft and nontender
Right TMA
No pedal edema
#Syncope:
-Prolonged QTC and Syncope
-Trop < 0.012 x 3
-echo above
-orthostatic VS POS in ER, cont to trend
-1L NS given in the ER followed by maintenance IVFs. IVFs stopped 11/26/23AM.
-Entresto restarted
-Cont BB/Aldactone
-Tele: PVCs
-Status post Dual chamber ICD placement 11/28/23
#Chronic HFrEF/ICM:
-Echo above
-cont BB, Aldactone, Entresto
-no SGLT2-inhibitors as h/o UTIs
-Primary liquid compounder is Dr. Figueroa at [facility]
#Anemia-check iron studies
#Chronic hepatitis C
#History of stroke: cont ASA/statin
#Anxiety/depression/PTSD: Continue Wellbutrin XL/Paxil
#DM2: Cont Lantus/SSI/accuchecks
#PAD: With stents in the right leg-cont ASA/statin
Right TMA
#H/O polysubstance abuse
#BPH: Continue Flomax
#Chronic ambulatory dysfunction
#DNR
#DVT Prophylaxis- Lovenox
Left message for daughter
Anticipated Discharge: Within 24 hours
Subjective/Interval History
-
Date of Service: November 28, 2023
Objective Data
-
Labs:
Laboratory Results
11/28/23
06:54
WBC 6.0
Hgb 10.3 L
Hct 31.1 L
Plt Count 298
Sodium 136
Potassium 4.5
Chloride 104
Carbon Dioxide 24
BUN 21 H
Creatinine 1.1
Glucose 155 H
Calcium 9.3
Vital Signs:
Vital Signs
Temp Pulse Resp BP Pulse Ox
97.5 F 97 18 118/77 94
11/28/23 10:45 11/28/23 10:45 11/28/23 10:45 11/28/23 10:45 11/28/23 11:32
I&O
11/27/23 11/28/23 11/29/23
06:59 06:59 06:59
Intake Total 2009
Output Total 800 / 800
Balance 1210 / 1210
[2023-11-28 12:47] LABS: Iron 37 ug/dl (49-181)
[2023-11-28 12:57] LABS: Percent Saturation 15 % (20-50); Total Iron Binding Capacity 244 ug/dl (261-462)
[2023-11-28 13:24] LABS: Glucose - Point of Care 241 mg/dl (70-99)
[2023-11-28] MEDS: NOVOLOG FLEXPEN-MODERATE RESISTANCE 3 UNITS SC (13:29)
[2023-11-28] MEDS: ANCEF 5 IV ×2 (13:30→22:12)
--- NOTE | 2023-11-28 13:40 | W.PN.UPDATE ---
Update Note
Progress Note Update
Urinalysis noted. Patient does not have any symptoms of UTI . Culture likely contaminant with multiple organisms. No treatment for now
[2023-11-28 14:48] LABS: Vitamin B12 613 pg/ml (239-931)
[2023-11-28] MEDS: FERRLECIT 110 MG IV (15:07)
--- NOTE | 2023-11-28 16:08 | CM ---
CM spoke with [facility] admissions/Mariela
Per Mariela, spoke with dtr today who requesting for pt to return to SNF for continued rehab
Pt is still a ST rehab resident at SNF
Currently receiving skilled time through his VA benefits, not Medicare
Pt is accepted back for SNF return and SNF admissions will obtain VA auth upon return to SNF per family preference
VM left for SNF nurse to obtain PLOF info
Return SNF referral sent via [facility]
PT/OT evals pending
Per UR, admission order for OBS status, awaiting outcome of physician review
Discharge Disposition- return to [facility] will obtain VA auth
[2023-11-28 16:57] LABS: Glucose - Point of Care 199 mg/dl (70-99)
--- NOTE | 2023-11-28 16:57 | PTCARENOTE ---
pt transferred to room 2129. Report given to KELIN Peterson. belongings sent with the pt.
--- NOTE | 2023-11-28 17:08 | PTCARENOTE ---
Received into room 2130. AOx3. VSS. NSR w/ BBBC on telemetry, HR 90s. Aquacell dressing to L upper chest clean, intact. Immobilizer in place to left arm. Patient aware of precautions. Updated on plan of care. Encouraged to make needs known.
[2023-11-28] MEDS: FLOMAX 0.800000000000000044 MG PO (17:24)
[2023-11-28] MEDS: POLYSPORIN OINTMENT 1 APPLIC TOPICAL (20:23)
[2023-11-28] MEDS: TRIPLE PASTE 1 APPLIC TOPICAL (20:25)
[2023-11-28 21:53] LABS: Glucose - Point of Care 224 mg/dl (70-99)
[2023-11-28] MEDS: LANTUS 0.0700000000000000067 UNITS SC (22:12)
[2023-11-28] MEDS: MELATONIN 6 MG PO (22:27)
[2023-11-28] MEDS: LIPITOR 80 MG PO (22:27)
[2023-11-29] VITALS (7 sets, daily range): BP systolic 88–131; BP diastolic 49–80; PULSE 92–93; O2SAT 98–99; BMI 22.4
[2023-11-29 06:06] LABS: Hematocrit 30.3 % (39.0-52.0); Hemoglobin 10.1 g/dL (13.0-18.0); Mean Corp Hgb Conc. 33.3 g/dL (33.0-37.0); Mean Corpuscular Hgb 28.6 pg (27.0-31.0); Mean Corpuscular Volume 85.8 fL (80.0-94.0); Mean Platelet Volume 9.9 fL (7.4-10.4); Platelet Count 271 10^3/uL (130-400); Red Blood Cell Count 3.53 10^6/uL (4.70-6.10); Red Cell Dist. Width 13.7 % (11.5-14.5); White Blood Cell Count 5.1 10^3/uL (4.8-10.8)
[2023-11-29 06:33] LABS: Blood Urea Nitrogen 23 mg/dl (9-20); Carbon Dioxide 24 mmol/L (22-30); Chloride 102 mmol/L (98-107); Estimated Creatinine Clearance 76 ml/min; Glucose 211 mg/dl (70-99); Potassium 4.4 mmol/L (3.5-5.1); Sodium 134 mmol/L (135-145); eGFR > 60.00
[2023-11-29 07:35] LABS: Glucose - Point of Care 189 mg/dl (70-99)
[2023-11-29] MEDS: TOPROL XL 25 MG PO (07:46)
[2023-11-29] MEDS: NOVOLOG FLEXPEN-MODERATE RESISTANCE 1 UNITS SC ×3 (07:46→18:00)
[2023-11-29] MEDS: MAG-TAB SR 168 MG PO (07:46)
[2023-11-29] MEDS: WELLBUTRIN XL (24 hour extended release) 150 MG PO (07:46)
[2023-11-29] MEDS: LOVENOX 40 MG SC (07:46)
[2023-11-29] MEDS: ALDACTONE 12.5 MG PO (07:46)
[2023-11-29] MEDS: LOW STRENGTH ASPIRIN 81 MG PO (07:46)
[2023-11-29] MEDS: PAXIL 30 MG PO (07:46)
[2023-11-29] MEDS: POLYSPORIN OINTMENT 1 APPLIC TOPICAL (07:46)
[2023-11-29] MEDS: ENTRESTO 24 MG/26 MG 1 TAB PO (07:46)
--- NOTE | 2023-11-29 07:46 | W.PN.CD ---
Today's Communication / Plan
-
- Stable from cardiac stand point
Impression / Plan
-
Syncope with long QTc
- EKG initially showed QTc of 560s but with stabilized now, it is showing 470s msec.
- Avoid QTc prolonging agents
- Exertional syncope with chronic severe systolic dysfunction boubacar with fluctuating QTc.
- s/p dual chamber ICD in place.
- ILR in place but appears to be biotronic
HFrEF, ICM, chronic
-LVEF 20-25% on TTE 11/25/23 (prior TTE requested)
-Chronic - awaiting old records to confirm the severe systolic dysfunction.
-GDMT as tolerated
-Beta mayank: transition metoprolol tartrate to metoprolol succinate
-ACEi/ARB: On Entresto (Lisinopril caused 'bumps around mouth')
-SGLT2i: Can consider - as outpatient.
-MRA: Can consider in the outpatient setting
-ICD: Chronic low EF. s/p dual chamber ICD - narrow QRS and normal conduction - LV lead was not needed.
-ICD today - dual chamber with his fluctuating QTc
-Trend daily weight, I/Os, & BMP
-Heart failure education
HTN
Anemia, appears chronic
CAD, prior CABG, stable without chest pain
Type II DM, Hgba1c 7.7%, per primary
Chronic hepatitis C
Prior MSSA bacteremia in the setting of LLE cellulitis (08/2023)
Subjective:
Feeling better. no active complaints. ICD went well. no complaints. The ICD site looks good. No issues.
DATA:
TTE 09/06/2023: Regional wall motion abnormality with akinesia of basal to mid anteroseptal, basal to mid inferior septal, apical septal, and apex location. Other LV segments are hypokinetic. No EF documented. No vegetation present on aortic
valve or other obvious valvular vegetations.
Physical Exam
Vital Signs/Labs
Vital Signs
Temp Pulse Resp BP Pulse Ox
97.6 F 97 18 131/73 94
11/29/23 03:29 11/29/23 03:29 11/29/23 03:29 11/29/23 03:29 11/29/23 03:29
11/28/23 11/29/23 11/30/23
06:59 06:59 06:59
Actual Weight 79.095 kg 81.284 kg
11/29/23 05:15
11/29/23 05:15
11/25/23
10:19
Liy-V-Fjtfdbxitrb Pept 1640
Physical Exam
Constitutional: No acute distress and Comfortable
EENT: Anicteric and Moist mucous membranes
Cardiovascular: Rhythm & rate is regular, Pedal edema is absent, JVD pressure is normal and Systolic murmur absent
Respiratory: Respiratory effort normal, Wheeze Absent and Crackles Absent
GI: Soft, Non tender and Normal bowel sounds
Neuro/Psych: Alert, Oriented and AO x 3
Other: Cardiac Device Site
Data Reviewed
-
Date of Service: November 29, 2023
Medical Decision Making: Reviewed Test Results, Test Interpretation and Review of Case with other Provider
EKG: Tracing Personally Visualized and interpreted
Echo: Report Reviewed by me
X-Ray/CT/US/MRI/NUC/PET: Image Personally Visualized and interpreted
Labs: Labs Reviewed by me
Old Records: Reviewed
[2023-11-29] MEDS: TRIPLE PASTE TOPICAL (08:01)
--- NOTE | 2023-11-29 10:43 | W.PN.HOSP.TC ---
Addendum entered and electronically signed by Mani Spencer MD 11/29/23 16:47:
Dictation- [id number]
Addendum entered and electronically signed by Mani Spencer MD 11/29/23 16:35:
Discussed with infectious disease option of giving antibiotics for 1 week given. Patient now has complaint of dysuria
Augmentin for 1 week
D/W Daughter again.
250 bolus IV fluids given per cardiology
Okay for discharge
Total discharge time 40 minutes
Addendum entered and electronically signed by Mani Spencer MD 11/29/23 11:31:
Spoke to patient's daughter who has concerns about recurrent UTIs. Discussed about polymicrobial growth and the rationale for not starting antibiotics.
Request ID evaluation for recommendations
Spoke to daughter about patient seeing a urologist as soon as possible to address prostate.
Also check another PVR today
Original Note:
Today's Communication/Plan
-
Orthostatic hypotension-I have texted cardiology regarding this to see if they would make any adjustments to Entresto/beta-mayank/Aldactone
Discharge planning.
Assessment / Plan
Assessment / Plan
Admitted with syncope while working with physical therapy. He passed out.
Echo: EF 20-25%.�No significant valvular disease.
Denies any complaints
Left chest wall ICD
Cardiovascular system S1-S2 normal
Chest clear to auscultation
Abdomen soft and nontender
Right TMA
No pedal edema
#Syncope:
-Prolonged QTC and Syncope
-Trop < 0.012 x 3
-echo above
-orthostatic VS POS in ER, cont to trend
-1L NS given in the ER followed by maintenance IVFs. IVFs stopped 11/26/23AM.
-Entresto restarted
-Cont BB/Aldactone
-Tele: PVCs
-Status post Dual chamber ICD placement 11/28/23
# Orthostatic hypotension-I have texted cardiology regarding this to see if they would make any adjustments to Entresto/beta-mayank/Aldactone
#Chronic HFrEF/ICM:
-Echo above
-cont BB, Aldactone, Entresto
-no SGLT2-inhibitors as h/o UTIs
-Primary board writer is Dr. Figueroa at [facility]
#Anemia-EDWIN
Replace
#Chronic hepatitis C
#History of stroke: cont ASA/statin
#Anxiety/depression/PTSD: Continue Wellbutrin XL/Paxil
#DM2: Cont Lantus/SSI/accuchecks
#PAD: With stents in the right leg-cont ASA/statin
Old Right TMA
#H/O polysubstance abuse
#BPH: Continue Flomax
#Chronic ambulatory dysfunction
#DNR
#DVT Prophylaxis- Lovenox
Changed to inpatient per discussion with physician advisor.
Discussed with case management
Left message for daughter.
Anticipated Discharge: Within 24 hours
Subjective/Interval History
-
Date of Service: November 29, 2023
Objective Data
-
Labs:
Laboratory Results
11/29/23
05:15
WBC 5.1
Hgb 10.1 L
Hct 30.3 L
Plt Count 271
Sodium 134 L
Potassium 4.4
Chloride 102
Carbon Dioxide 24
BUN 23 H
Creatinine 1.0
Glucose 211 H
Calcium 9.0
Vital Signs:
Vital Signs
Temp Pulse Resp BP Pulse Ox
98.0 F 92 16 100/52 97
11/29/23 07:10 11/29/23 07:10 11/29/23 07:10 11/29/23 07:10 11/29/23 07:10
I&O
11/28/23 11/29/23 11/30/23
06:59 06:59 06:59
Intake Total 2009 1500 / 1500
Output Total 800 / 800 1295 / 1295
Balance 1210 / 1210 /
[2023-11-29 12:09] LABS: Glucose - Point of Care 192 mg/dl (70-99)
--- NOTE | 2023-11-29 12:25 | CM ---
Addendum entered by Felicita Castillo 11/29/23 17:14:
[facility] paying for Skilled rehab. [facility] obtained auth.
Addendum entered by Felicita Castillo 11/29/23 17:09:
Patient discharge was on hold as MD requested ID consult prior to leaving. D/CH Order placed at 4:43PM. Transport scheduled for 7:30pm. [facility] notified.
Original Note:
Patient has been medically cleared for discharge back to [facility] for resumption of long-term and rehab services. Transport to be scheduled. Daughter, Earnestine Zabala, patient and Team have been notified.
NURSE TO NURSE REPORT # [phone]
FAX # [phone]
[2023-11-29] MEDS: NSS 250 IV (12:44)
--- NOTE | 2023-11-29 14:14 | CON.ID ---
Consultation
-
Date/Time Consultation Requested: 11/29/2023, 1131
Date/Time Consultation Performed: 11/29/2023, 1415
Requesting Provider: Dr. Mani Spencer
Performing Provider: Dr. Rachelle Sheikh
Reason for Consultation: Bacteria in urine
Chief Complaint / Past History
Chief Complaint
Syncope
History of Present Illness
73 year old male with DM2, CAD, ICM, CVA BPH who had syncope during PT at [facility]. He was sent to ED 11/24. ECHO EF 20-25%. Pt noted to have prolonged QTc. 11/28/2023, he underwent dual chamber ICD placement. He came in with alejandro which was
removed in ED. ED sent UA/Ucx. Pt reports mild dysuria since alejandro removal 4 days ago. No improvement of dysuria. He is urinating more but no urgency. No fevers or chills. +dry cough; CXR negative.
Past History
Additional Past Medical History:
DM2
CAD s/p CABG
Ischemic cardiomyopathy
CVA
Anxiety/depression
PTSD
Chronic Hep C
BPH
Ambulatory dysfunction
PVD
h/o polysubstance abuse
Right toe amp
Allergy History:
clopidogrel Allergy (Verified 11/01/23 21:55)
Unknown
lisinopril Allergy (Verified 11/01/23 21:55)
Unknown
spironolactone Allergy (Verified 11/01/23 21:55)
Unknown
Medications Reviewed: Yes
Current Antibiotics:
none
Social History
Tobacco: Non-Smoker
Alcohol: None
Drug: None
Family History
Family History: Not Pertinent
Review of Systems
Review of Systems
General: Negative Fever, Chills or Change in Appetite
HEENT: Negative Sinus Problems or Headache
Respiratory: Cough; Negative Dyspnea or Sputum Production
Gasteroenterology: Other (no diarrhea); Negative Nausea or Vomiting
Genital / Urological: Dysuria; Negative Flank Pain
Endocrine: Negative Weakness
Skin / Hair / Nails: Negative Urticaria or Rash
Neurological: Negative Headache or Dizziness
All systems: All other systems were reviewed and were negative
Vital Signs
Temp Pulse Resp BP Pulse Ox
98.3 F 85 16 94/55 97
11/29/23 11:00 11/29/23 11:00 11/29/23 11:00 11/29/23 11:00 11/29/23 11:00
Physical Exam
Physical Exam
Constitutional: No Acute Distress and Comfortable
Eyes: No Conjunctival Hemorrhage and Sclera Anicteric
Cardiovascular: Regular Rate and S1/S2
Pulmonary: Clear
Gastrointestinal: Soft, Non Tender, Non Distended and Normal Bowel Sounds
Genito-Urinary: Negative Alejandro, Suprapubic Tenderness or CVA Tenderness
Extremities: Negative Edema
Neurological: AO x 3
Lab / Diagnostic Study Results
11/29/23 05:15
11/29/23 05:15
Abs Immat Gran (auto) 0.0 10^3/uL (0-0.05) 11/25/23 10:19
Absolute Neuts (auto) 8.5 10^3/uL (1.4-6.5) H 11/25/23 10:19
Absolute Lymphs (auto) 0.8 10^3/uL (1.2-3.4) L 11/25/23 10:19
Absolute Monos (auto) 1.0 10^3/uL (0.1-0.6) H 11/25/23 10:19
Absolute Basos (auto) 0.1 10^3/uL (0-0.2) 11/25/23 10:19
Immature Gran % 0.4 % (0-0.5) 11/25/23 10:19
Neutrophils % 80.5 % (42.2-75.2) H 11/25/23 10:19
Lymphocytes % 7.4 % (20.5-51.1) L 11/25/23 10:19
Monocytes % 9.6 % (1.7-9.3) H 11/25/23 10:19
Eosinophils % 1.4 % (0-6) 11/25/23 10:19
Basophils % 0.7 % (0-2) 11/25/23 10:19
Ur Squamous Epith Cells 0-2 /LPF (Few) 11/25/23 10:20
Microbiology Results
Micro:
11/25/23 10:20 Urine Culture - Final
Urine Enterococcus faecalis - VRE
Acinet. baumannii/haemolyticus
11/25/23 17:39 MRSA Screen - Final
Nose No Methicillin Resistant Staphylococcus aureus isolated.
11/25/23 10:19 Influenza Types A & B (ESPERANZA) - Final
Nasal Swab Negative for Influenza A & B, NAAT
Negative results must be combined with clinical observations
and patient history.
Nucleic Acid Amplification test (NAAT)performed on the
[employer] platform.
11/28/23 CXR: negative
Assessment / Plan
# Symptomatic UTI
- Recent alejandro, removed 11/25/23
- UA 1+LE, 3-6 RBC, 3-5 WBC (not significant)
- Ucx > 100,000 CFU VRE and Acinetobacter.
-Since pt reports sxs, can tx with Augmentin 875mg po bid x 7 days.
Care Review
Plan reviewed with: Physician (Dr. Spencer)
[2023-11-29] MEDS: FERRLECIT 110 MG IV (14:28)
--- NOTE | 2023-11-29 16:43 | W.DS.TRANS ---
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
-
Discharge Instructions:
Sleep Apnea Risk Intermediate
Discharge Diagnosis/Procedures ICD implant, syncope, orthostatic hypotension,
chronic heart failure, anemia, history of stroke
, diabetes, peripheral artery disease, chronic
ambulate dysfunction, prostate hypertrophy
Diet Restrict fluids to 48 oz,2 Gram Sodium,Diabetic,
Carb Controlled
Activity As tolerated,With assistance
Driving Restrictions No driving
Bathing Restrictions OK to Shower
Other Services PT,OT
Specialty Instructions Weigh Daily
Instructions:
Stand-Alone Forms: DC Inst - Implanted Device
Changes to Home Medications: Yes
Discharge Medications:
DC Medications w/original date entered in [facility]
aspirin 81 mg chewable tablet 81 mg PO DAILY Blood Clot Prevention/Tx 11/01/23
atorvastatin 80 mg tablet 80 mg PO HS High Cholesterol 11/01/23
bisacodyl 10 mg rectal suppository (Dulcolax (bisacodyl)) 10 mg VT DAILY PRN if no BM in 24 hrs after MOM 11/01/23
enoxaparin 40 mg/0.4 mL subcutaneous syringe 40 mg SC DAILY Blood Clot Prevention 11/01/23
insulin aspart U-100 100 unit/mL (3 mL) subcutaneous pen 0 sliding scale dose SC ACHS Diabetes 11/01/23
insulin glargine-yfgn 100 unit/mL (3 mL) subcutaneous pen 7 unit SC HS Diabetes 11/01/23
magnesium hydroxide 400 mg/5 mL oral suspension (Milk of Magnesia) 30 ml PO DAILY PRN if no BM after 3 days 11/01/23
magnesium oxide 800 mg PO DAILY Electrolyte Repletion 11/01/23
melatonin 3 mg tablet 6 mg PO HS Sleep 11/01/23
sacubitril 24 mg-valsartan 26 mg tablet (Entresto) 1 tab PO BID Heart Failure 11/01/23
sodium phosphates 19 gram-7 gram/118 mL enema (Fleet Enema) 118 ml VT DAILY PRN if no BM in 24 hrs after bisacodyl supp. 11/01/23
tamsulosin 0.4 mg capsule 0.8 mg PO QPM Urinary Issue 11/01/23
acetaminophen 325 mg tablet (Tylenol) 650 mg PO Q6H PRN c/o pain/discomfort 11/25/23
neomycin-bacitracn Zn-polymyx 3.5 mg-400 unit-5,000 unit/gram top oint (Neosporin (mnl-goe-jleqi)) 1 applic topical BID apply to head of penis 11/25/23
zinc oxide 10 % topical cream 1 applic topical BID apply to B/L buttocks 11/25/23
zinc oxide 10 % topical cream 1 applic topical DAILYPRN PRN apply to B/L buttocks 11/25/23
amoxicillin 875 mg-potassium clavulanate 125 mg tablet 1 tab PO Q12 uti #0 tabs 11/29/23
bupropion HCl 150 mg 24 hr tablet, extended release (Wellbutrin XL) 150 mg PO DAILY Mental Health/Anxiety #30 tabs 11/29/23
guaifenesin 100 mg/5 mL oral liquid (Siltussin SA) 200 mg (10 mL) PO Q4HPRN PRN cough #0 mL 11/29/23
metoprolol succinate 25 mg tablet,extended release 24 hr 25 mg PO BID Heart Failure #0 tabs 11/29/23
paroxetine HCl 30 mg tablet (Paxil) 30 mg PO DAILY Depression #30 tabs 11/29/23
spironolactone 25 mg tablet 12.5 mg PO DAILY Heart Failure #0 tabs 11/29/23
Home Medication Changes
Spironolactone as needed
Metoprolol changed from every 6 hours to twice daily dosage
Augmentin is new
Pending Results: No
[2023-11-29 16:55] LABS: Glucose - Point of Care 209 mg/dl (70-99)
[2023-11-29] MEDS: FLOMAX 0.800000000000000044 MG PO (18:00)
--- NOTE | 2023-11-29 20:42 | W.PN.UPDATE ---
Update Note
Progress Note Update
Nurse contacted house provider for patient with complaint of heartburn and requesting Tums prior to discharge. Order placed for a 1x tums now.
[2023-11-29] MEDS: TUMS 1 TABLET PO (20:46)
--- NOTE | 2023-11-29 21:04 | PTCARENOTE ---
Patient discharged. Transport team came to take pt to [facility] via ambulance.
== END 2023-11-29 21:04 | DRG 277 ==
LOC: 2 NORTH 09:39
PROVIDERS: Internal Medicine Cardiovascular Disease; Nurse Practitioner; ADMITTING PHYSICIAN Internal Medicine; ATTENDING PHYSICIAN Hospitalist; CONSULT PHYSICIAN Internal Medicine Cardiovascular Disease; CONSULT PHYSICIAN Internal Medicine Infectious Disease; EMERGENCY PHYSICIAN Emergency Medicine; FAMILY PHYSICIAN Internal Medicine
PROC: 0JH608Z Insertion of Defibrillator Generator into Chest Subcutaneous Tissue and Fascia, Open Approach (ICD-10-PCS; 2023-11-28)
PROC: 02H63KZ Insertion of Defibrillator Lead into Right Atrium, Percutaneous Approach (ICD-10-PCS; 2023-11-28)
PROC: 02HK3KZ Insertion of Defibrillator Lead into Right Ventricle, Percutaneous Approach (ICD-10-PCS; 2023-11-28)
DX: I45.81 Long QT syndrome (principal); I50.22 Chronic systolic (congestive) heart failure; N39.0 Urinary tract infection, site not specified; I95.1 Orthostatic hypotension; B18.2 Chronic viral hepatitis C; I11.0 Hypertensive heart disease with heart failure; F43.10 Post-traumatic stress disorder, unspecified; N40.0 Benign prostatic hyperplasia without lower urinary tract symptoms; I25.5 Ischemic cardiomyopathy; E11.51 Type 2 diabetes mellitus with diabetic peripheral angiopathy without gangrene; F32.A Depression, unspecified; Z66 Do not resuscitate; I25.10 Atherosclerotic heart disease of native coronary artery without angina pectoris; D64.9 Anemia, unspecified; R29.6 Repeated falls; R00.1 Bradycardia, unspecified; Z11.52 Encounter for screening for COVID-19; Z79.4 Long term (current) use of insulin; Z79.82 Long term (current) use of aspirin; Z79.899 Other long term (current) drug therapy; Z86.73 Personal history of transient ischemic attack (TIA), and cerebral infarction without residual deficits; Z87.891 Personal history of nicotine dependence; Z95.1 Presence of aortocoronary bypass graft
CPT/HCPCS: 33249; 71045; 71046; 80048; 80053; 81003; 81015; 82607; 82728; 82962; 83540; 83550; 83880; 84484; 85025; 85027; 86803; 87070; 87077; 87086; 87186; 87502; 87811; 93005; 93306; 96360; 97163; 97166; 99285; C1721; C1777; C1892; C1898; J2916; Q9950